=== PATIENT | female | born 1970 | race Caucasian/White ===

== ENCOUNTER → 2023-04-10 | Outpatient (CLI) | payer BC, SELFPAY ==
--- NOTE | 2023-04-10 11:23 | NM_ITS ---
CLINICAL: 52-year-old female with history of right kidney hydronephrosis. 99m Tc MAG3 DIURETIC RENAL SCINTIGRAPHY COMPARISON: None available FINDINGS: Following the intravenous administration of 10.0 mCi of 99m Tc MAG3, renal images reveal: 1. The flow study demonstrates relatively normal arterial phase distribution of the radiopharmaceutical to the bilateral kidneys. 2. Immediate static delayed nephrogram images depict relatively prompt and homogeneous tracer concentration by the renal parenchyma of both kidneys. Collecting structure visualization is defined by 4 minutes post radiopharmaceutical administration bilaterally. Washout of the radiopharmaceutical by the left kidney appears qualitatively normal. Delayed radiotracer washout is defined in the right renal unit. There is spontaneous drainage of the left kidney collecting system prior to furosemide administration. Persistent collecting system activity is defined in the right renal unit during 20 minutes of pre-Lasix sequential image acquisition. 3. The [id number] ratio of total renal parenchymal function was calculated to be 46/54. Furosemide 10 mg was administered intravenously. The post Lasix T ? washout of the residual left and visualized right kidney collecting system was calculated to be minutes, (normal < 10 minutes). NM/Renal Scan w/ Pharm Intervent IMPRESSION: 1. There is preserved left kidney renal parenchymal-cortical function. Cortical dysfunction is defined in the right renal unit as described above. 2. The right and left kidney collecting systems demonstrate a normal physiologic response to diuretic administration negating the presence of significant mechanical and/or functional obstruction. Electronically Signed: Shahzad Mackenzie DO at 22:16 EST ,
--- OUTSIDE RECORDS SUMMARY | 2023-04-10 12:07 | XMS RPT_ITS | CCD ---
Author Name Unknown Address [address] [facility] [address] [place] [address] Organization [facility] Care Team Providers Care Motel Operator Name Role Phone NO FAMILY DOCTOR, NO FAMILY DOCTOR Unavailable Unavailable OVIDIO CHAPA Unavailable Unavailable Khris SHOP AND ALTERATION TAILOR - Cortez LARSON Primary Care Provid er CORTEZ PINEDO Primary Care Unavailable BENJAMIN COMER Attending Unavailable Cortez Pinedo Unavailable Shahzad Ayala Unavailable Unavailable Khris SHOP AND ALTERATION TAILOR.Cortez LARSON Primary Care Provider Cortez Pinedo Unavailable Unavailable Unavailable Khris SHOP AND ALTERATION TAILOR.Cortez LARSON Primary Care Provider Khris SHOP AND ALTERATION TAILOR.Cortez LARSON Primary Care Provider CORTEZ PINEDO Referring Unavailable CORTEZ PINEDO Primary Care Unavailable Khris SHOP AND ALTERATION TAILOR - Cortez LARSON Primary Care Provid er CORTEZ PINEDO Primary Care Unavailable MARICEL PORETR Referring Unavailable CORTEZ PINEDO Primary Care Unavailable MARICEL PORTER Referring Unavailable MARICEL PORTER Referring Unavailable CORTEZ PINEDO Primary Care Unavailable MARICEL PORTER Referring Unavailable JULIETTE PINEDOE M Primary Care Unavailable MARICEL PORTER Referring Unavailable JULIETTE PINEDOE M Primary Care Unavailable MARICEL PORTER Referring Unavailable KHRIS, CORTEZ M Primary Care Unavailable NED BORREGO Referring Unavailable KHRIS, CORTEZ M Primary Care Unavailable JULIETTE PINEDOE M Primary Care Unavailable MARICEL PORTER Referring Unavailable JULIETTE PINEDOE M Primary Care Unavailable NED BORREGO Referring Unavailable GENO ARCHER Referring Unavailable JULIETTE PINEDOE M Primary Care Unavailable KHRIS, CORTEZ M Primary Care Unavailable JULIETTE PINEDOE M Attending Unavailable JULIETTE PINEDOE M Referring Unavailable KHRIS, CORTEZ M Primary Care Unavailable KHRIS, CORTEZ M Referring Unavailable KHRIS, CORTEZ M Primary Care Unavailable GENO ARCHER Attending Unavailable SELF Referring Unavailable KHRIS, CORTEZ M Primary Care Unavailable KHRIS, CORTEZ M Primary Care Unavailable TORSTEN VASQUEZ Attending Unavailable MICHELE CELIS Attending Unavaila ble JULIETTE PINEDOE M Primary Care Unavailable VÍCTOR, JOHN Admitting Unavailable EDMOND RENEEITA Attending Unavailable JULIETTE PINEDOE M Primary Care Unavailable TORSTEN VASQUEZ Referring Unavailable NIYAH GARCIA Consulting Unavail able KHRIS, CORTEZ M Primary Care Unavailable KHRIS, CORTEZ M Primary Care Unavailable JULIETTE PINEDOE M Attending Unavailable JULIETTE PINEDOE M Referring Unavailable KHRIS, CORTEZ M Primary Care Unavailable KHRIS, CORTEZ M Primary Care Unavailable Allergies Allergy Classification Reported Allergen(s) Allergy Type Date of Onset Reaction(s) Facility Quinolones (antibiotic) (1 source) Ciprofloxacin Drug Allergy 1 Anaphylaxis [facility] (20 sources) Ciprofloxacin; Translations: [Cipro] Drug Allergy 3 Anaphylaxis, Itching, Other (See Comments), Nausea And Vomiting [facility] (1 source) Ciprofloxacin Drug Allergy Unknown [facility] (20 sources) Ciprofloxacin; Translations: [CIPROFLOXACIN IN 5 % DEXTROSE] Drug Allergy 3 Itching, Other: See Comments [facility] (20 sources) Sulfamethoxazole / Trimethoprim; Translations: [SULFAMETHOXAZOLE-TR IMETHOPRIM] Drug Allergy 8 Diarrhea, Vomiting, Nausea And Vomiting [facility] Medications Current Medications Medication Drug Class(es) Dates Sig (Normalized) Sig (Original) cyclobenzaprine hydrochloride 10 mg oral tablet (3 sources) Muscle Relaxant Start: 08-19-2022 End: 08-24-2022 take 1 tablet by mouth every eight hours as needed cyclobenzaprine (FLEXERIL) 10 mg tablet Take 1 tablet by mouth every 8 hours as needed for up to 5 days. 10 tablet 0 08/19/2022 08/24/2022 Active Completed/Discontinued Medications Medication Drug Class(es) Dates Sig (Normalized) Sig (Original) acetaminophen 325 mg / HYDROcodone bitartrate 7.5 mg oral tablet (2 sources) Opioid Agonist Start: 05-15-2021 take 1 tablet by mouth every four to six hours as needed for pain HYDROcodone-Aceta minophen 7.5-325 MG Oral Tablet TAKE 1 TABLET EVERY 4-6 HOURS NEEDED FOR PAIN Quantity: 8 Refills: 0 Ordered: 15-May-2021 DO Start : 15-May-2021 Active acetaminophen 325 mg / oxyCODONE hydrochloride 5 mg oral tablet (3 sources) Opioid Agonist Start: 08-12-2020 End: 08-15-2020 take 1 tablet by mouth every six hours as needed for pain oxyCODONE-Acetami nophen 5-325 MG Oral Tablet TAKE 1 TABLET BY MOUTH EVERY 6 HOURS NEEDED for pain for up to 3 (THREE) days Quantity: 12 Refills: 0 Ordered: 12-Aug-2020 DO Start : 12-Aug-2020 Active 24 hr buPROPion hydrochloride 150 mg extended release oral tablet (20 sources) Aminoketone Start: 01-28-2023 take 1 tablet by mouth once daily buPROPion XL (WELLBUTRIN XL) 150 mg 24 hr tablet Take 1 tablet by mouth once daily. 90 tablet 1 01/28/2023 Active Problems Active Problems Problem Classification Problem Date Documented Da te Episodic/Chronic Anxiety disorders (6 sources) Anxiety; Translations: [Anxiety disorder, unspecified] Onset: 08-27-2022 Chronic Immunizations and screening for infectious disease (16 sources) Patient encounter status; Translations: [Encounter for screening for COVID-19] Episodic Menopausal disorders (1 source) Menopausal and female climacteric states; Translations: [Menopausal symptom] Onset: 03-13-2023 Chronic Mood disorders (20 sources) Depressive disorder; Translations: [Depressive disorder] Onset: 07-02-2016 07-02-2016 Chronic Nonspecific chest pain (4 sources) Chest pain; Translations: [Chest pain, unspecified] 02-26-2021 Episodic Past or Other Problems Problem Classification Problem Date Documented Date Episodic/Chronic Calculus of urinary tract (20 sources) Kidney stone; Translations: [Calculus of kidney] Onset: 08-27-2016 Episodic Other diseases of kidney and ureters (20 sources) Obstruction of pelviureteric junction; Translations: [Crossing vessel and stricture of ureter without hydronephrosis] Onset: 11-26-2012 04-03-2023 Episodic Other diseases of kidney and ureters (1 source) Crossing vessel and stricture of ureter without hydronephrosis; Translations: [UPJ (ureteropelvic junction) obstruction] Onset: 02-20-2021 Episodic Other fractures (2 sources) Other specified fracture of right pubis, subsequent encounter for fracture with routine healing; Translations: [Other specified fracture of right pubis, subsequent encounter for fracture with routine healing] Onset: 05-09-2021 Episodic Other lower respiratory disease (20 sources) Multiple nodules of lung; Translations: [Other nonspecific abnormal finding of lung field] Onset: 04-01-2018 04-01-2018 Episodic Other lower respiratory disease (1 source) Chest pain on breathing; Translations: [Chest pain on breathing] Onset: 08-18-2022 Episodic Spondylosis; intervertebral disc disorders; other back problems (5 sources) Backache; Translations: [Dorsalgia, unspecified] Onset: 04-17-2022 Episodic Unclassified (1 source) Pain in left wrist; Translations: [Pain in left wrist] Onset: 02-06-2017 Results Test Name Value Interpretation Reference Range Facil it Vital Signs Date Time Vital Sign Value Performing Clinician Facility 12-21-2022 13:54-0400 Body temperature 97.9 [degF] Nurse Franklin Work Phone: [facility] 12-21-2022 13:54-0400 Diastolic blood pressure 68 mm[Hg] Nurse Franklin Work Phone: [facility] 12-21-2022 13:54-0400 Systolic blood pressure 118 mm[Hg] Nurse Franklin Work Phone: [facility] 08-27-2022 11:14-0400 Body height 162.6 cm Geno Sheets DO Work Phone: [facility] 08-27-2022 11:14-0400 Body temperature 98.2 [degF] Geno Sheets DO Work Phone: [facility] 08-27-2022 11:14-0400 Body weight 78.93 kg Geno Sheets DO Work Phone: [facility] 08-27-2022 11:14-0400 Diastolic blood pressure 60 mm[Hg] Geno Sheets DO Work Phone: [facility] 08-27-2022 11:14-0400 Heart rate 68 /min Geno Sheets DO Work Phone: [facility] 08-27-2022 11:14-0400 SaO2% (BldA) [Mass fraction] 97 % Geno Sheets DO Work Phone: [facility] 08-27-2022 11:14-0400 Systolic blood pressure 110 mm[Hg] Geno Sheets DO Work Phone: [facility] 10-11-2021 13:43-0400 Body height 162.6 cm Cortez Khris SHOP AND ALTERATION TAILOR.MARINE SERVICE STATION ATTENDANT Work Phone: [facility] 10-11-2021 13:43-0400 Body temperature 98.2 [degF] Cortez Khris SHOP AND ALTERATION TAILOR.MARINE SERVICE STATION ATTENDANT Work Phone: [facility] 10-11-2021 13:43-0400 Body weight 73.12 kg Cortez Khris SHOP AND ALTERATION TAILOR.MARINE SERVICE STATION ATTENDANT Work Phone: [facility] 10-11-2021 13:43-0400 Diastolic blood pressure 60 mm[Hg] Cortez Khris SHOP AND ALTERATION TAILOR.MARINE SERVICE STATION ATTENDANT Work Phone: [facility] 10-11-2021 13:43-0400 Heart rate 70 /min Cortez Khris SHOP AND ALTERATION TAILOR.MARINE SERVICE STATION ATTENDANT Work Phone: [facility] 10-11-2021 13:43-0400 Respiratory rate 18 /min Cortez Khris SHOP AND ALTERATION TAILOR.MARINE SERVICE STATION ATTENDANT Work Phone: [facility] 10-11-2021 13:43-0400 SaO2% (BldA) [Mass fraction] 100 % Cortez Khris SHOP AND ALTERATION TAILOR.MARINE SERVICE STATION ATTENDANT Work Phone: [facility] 10-11-2021 13:43-0400 Systolic blood pressure 92 mm[Hg] Cortez Khris SAUCEDOMARINE SERVICE STATION ATTENDANT Work Phone: [facility] 08-02-2021 15:43-0400 Body height 162.56 cm Cortez Pinedo Work Phone: [facility] Work Phone: 08-02-2021 15:43-0400 Body mass index (BMI) [Ratio] 29.18 kg/m2 Cortez Pinedo Work Phone: [facility] Work Phone: 08-02-2021 15:43-0400 Body surface area Derived from formula 1.83 m2 Cortez Rick Khris Work Phone: [facility] Work Phone: 08-02-2021 15:43-0400 Body weight 77.11 kg Cortez Pinedo Work Phone: [facility] Work Phone: 05-24-2021 14:26-0400 Body height 162.6 cm Katerin Simmons MD Work Phone: [facility] 05-24-2021 14:26-0400 Body temperature 98.29 [degF] Katerin Simmons MD Work Phone: [facility] 05-24-2021 14:26-0400 Body weight 77.11 kg Katerin Simmons MD Work Phone: [facility] 05-24-2021 14:26-0400 Diastolic blood pressure 70 mm[Hg] Katerin Simmons MD Work Phone: [facility] 05-24-2021 14:26-0400 Heart rate 75 /min Katerin Simmons MD Work Phone: [facility] 05-24-2021 14:26-0400 Respiratory rate 18 /min Katerin Simmons MD Work Phone: [facility] 05-24-2021 14:26-0400 SaO2% (BldA) [Mass fraction] 99 % Katerin Simmons MD Work Phone: [facility] 05-24-2021 14:26-0400 Systolic blood pressure 110 mm[Hg] Katerin Simmons MD Work Phone: [facility] 02-26-2021 06:34-0500 Diastolic blood pressure 76 mm[Hg] Cortez Khris Other Phone: [facility] 02-26-2021 06:34-0500 Heart rate 76 /min Cortez Khris Other Phone: [facility] 02-26-2021 06:34-0500 Respiratory rate 20 /min Cortez Khris Other Phone: [facility] 02-26-2021 06:34-0500 SaO2% (BldA) [Mass fraction] 100 % Cortez Khris Other Phone: [facility] 02-26-2021 06:34-0500 Systolic blood pressure 130 mm[Hg] Cortez Khris Other Phone: [facility] 08-12-2020 17:01-0400 Body height 162.6 cm Benjamin Comer MD Work Phone: [employer] Work Phone: 08-12-2020 17:01-0400 Body mass index (BMI) [Ratio] 27.46 kg/m2 Benjamin Comer MD Work Phone: [employer] Work Phone: 08-12-2020 17:01-0400 Body temperature 98.49 [degF] Benjamin Comer MD Work Phone: [employer] Work Phone: 08-12-2020 17:01-0400 Body weight 72.58 kg Benjamin Comer MD Work Phone: [employer] Work Phone: 08-12-2020 17:01-0400 Diastolic blood pressure 60 mm[Hg] Benjamin Comer MD Work Phone: [employer] Work Phone: 08-12-2020 17:01-0400 Heart rate 91 /min Benjamin Comer MD Work Phone: [employer] Work Phone: 08-12-2020 17:01-0400 Respiratory rate 14 /min Benjamin Comer MD Work Phone: [employer] Work Phone: 08-12-2020 17:01-0400 SaO2% (BldA) [Mass fraction] 97 % Benjamin Comer MD Work Phone: [employer] Work Phone: 08-12-2020 17:01-0400 Systolic blood pressure 128 mm[Hg] Benjamin Comer MD Work Phone: [employer] Work Phone: Encounters Encounter Date Encounter Type Care Provider Facility Start: 04-08-2023 Telephone encounter Cortez Pinedo APRN.MARINE SERVICE STATION ATTENDANT Work Phone: [facility] Procedures Date Procedure Procedure Detail Performing Clinician Start: 01-30-2023 Lipid 1996 panel - S dorcas or Plasma Cortez Pinedo APRN.MARINE SERVICE STATION ATTENDANT Work Phone: Start: 12-21-2022 INFLUENZA VACCINE, A GE 6 MO - 64 YR, QUADRIVALENT (AFLURIA, FLULAVAL, FLUZONE) Geno C Sheets DO Work Phone: Start: 04-27-2022 Mri spinal canal lum bar w/o contrast material Danielle Valadez SHOP AND ALTERATION TAILOR - MESMERIST Work Phone: Start: 04-27-2022 Ct pelvis w/o contra st material Danielle Valadez SHOP AND ALTERATION TAILOR - MESMERIST Work Phone: Start: 04-17-2022 End: 04-17-2022 Radex hip unilateral with pelvis 2-3 views Ned Borrego DO Work Phone: Start: 03-06-2022 Mammography Cortez chang SHOP AND ALTERATION TAILOR.MARINE SERVICE STATION ATTENDANT Work Phone: Start: 02-27-2022 INFLUENZA VACCINE QUADRIVALENT 6 MO - 64 YRS IM Geno C Sheets DO Work Phone: Start: 02-27-2022 PFIZER-BIONTECH COVI D-19 BIVALENT BOOSTER VACCINE, AGE 12+ YR Geno C Sheets DO Work Phone: Start: 12-27-2021 Lipid 1996 panel - S dorcas or Plasma Cortez Pinedo SHOP AND ALTERATION TAILOR.MARINE SERVICE STATION ATTENDANT Work Phone: Start: 02-26-2021 End: 02-26-2021 EKG impression Shahzad Ayala Start: 02-23-2021 Mri any jt lower ext rem w/o contrast matrl Danielle Valadez APRN - MESMERIST Work Phone: Start: 08-12-2020 Ct abdomen & pelvis w/o contrast material Benjamin Comer MD Work Phone: Start: 03-04-2020 Colonoscopy Katerin reis MD Work Phone: Start: 02-04-2020 Mammography Katerin resi MD Work Phone: Plan of Treatment Date Care Activity Detail Author Start: 04-01-2028 Urine microalbumin profile [facility] Start: 01-31-2028 Lipid 1996 panel - S dorcas or Plasma Lipid Screening [facility] Start: 01-31-2028 Lipid panel Lipid Screening [facility] Start: 12-27-2026 Lipid 1996 panel - S dorcas or Plasma Lipid Screening [facility] Start: 12-27-2026 LIPID SCREEN LIPID SCREEN [facility] Start: 03-03-2026 Diabetes Screening Diabetes Screenin g [facility] Start: 01-30-2026 Diabetes Screening Diabetes Screenin g [facility] Start: 08-19-2025 DIABETES SCREEN DIABETES SCREEN [facility] Start: 08-19-2025 Diabetes Screening Diabetes Screenin g [facility] Start: 03-04-2025 Colonoscopy Colonoscopy [facility] Start: 03-04-2025 Colorectal Cancer Screening Colorectal Cancer Screening [facility] Start: 03-04-2025 Screening for malign ant neoplasm of colon [facility] Start: 01-06-2025 LIPID SCREEN LIPID SCREEN [facility] Start: 12-27-2024 DIABETES SCREEN DIABETES SCREEN [facility] Start: 03-12-2024 Screening for malign ant neoplasm of breast Mammogram Screening [facility] Start: 03-06-2024 Screening for malign ant neoplasm of breast Breast cancer screen [facility] Start: 09-04-2023 Hepatitis B Vaccine (3 of 3 - 19+ 3-dose series) Hepatitis B Vaccine (3 of 3 - 19+ 3-dose series) [facility] Start: 03-06-2023 Mammography [facility] Start: 12-14-2022 DIABETES SCREEN DIABETES SCREEN [facility] Start: 10-26-2022 Covid-19 Vaccine ( season) Covid-19 Vaccine ( season) [facility] Start: 10-26-2022 Influenza vaccination [facility] Start: 10-11-2022 COVID-19 VACCINE (4 - Booster for Pfizer series) COVID-19 VACCINE (4 - Booster for Pfizer series) [facility] Immunizations Immunization Date Immunization Notes Care Provider Pilar young 04-03-2023 hepatitis B vaccine, adult dosage [facility] Work Phone: [facility] 03-06-2023 hepatitis B vaccine, adult dosage [facility] Work Phone: [facility] 12-21-2022 influenza, injectabl e, quadrivalent, contains preservative Nurse Mary Work Phone: [facility] 02-27-2022 COVID-19 booster vaccine, age 12+ yr, bivalent (PFIZER-BIONTECH) Nurse Mary Work Phone: [facility] 02-27-2022 influenza, injectabl e, quadrivalent, contains preservative Nurse Hernandez Work Phone: [facility] 02-27-2022 influenza virus vacc ine, unspecified formulation Cortez Pinedo APRN.MARINE SERVICE STATION ATTENDANT Work Phone: [facility] 04-04-2021 COVID-19 vaccine, ag e 12+ yr (PFIZER-BIONTECH - [facility]) Katerin Simmons MD Work Phone: [facility] 12-03-2020 influenza, injectabl e, quadrivalent, preservative free Cortez Pinedo [facility] Work Phone: 07-02-2020 Pfizer-BioNTech COVI D-19 Vacc 30 MCG/0.3ML Intramuscular Suspension Cortez Pinedo Work Phone: [facility] DO Work Phone: 06-11-2020 Pfizer-BioNTech COVI D-19 Vacc 30 MCG/0.3ML Intramuscular Suspension Cortez Pinedo Work Phone: [facility] DO Work Phone: 12-15-2019 influenza, injectabl e, quadrivalent, contains preservative Katerin Simmons MD Work Phone: [facility] 12-15-2019 zoster vaccine recombinant Cortez Pinedo APRN.MARINE SERVICE STATION ATTENDANT Work Phone: [facility] 01-03-2016 influenza, injectabl e, quadrivalent, contains preservative Katerin Simmons MD Work Phone: [facility] 01-03-2016 influenza, seasonal, injectable, preservative free Katerin Simmons MD Work Phone: [facility] 12-13-2014 influenza, seasonal, injectable Katerin Simmons MD Work Phone: [facility] 12-15-2013 influenza, seasonal, injectable Katerin Simmons MD Work Phone: [facility] 02-11-2009 novel influenza-H1N1 -09, preservative-free, injectable Cortez Pinedo Work Phone: [facility] Payers Date Payer Category Payer Unknown [id number] 2020 Unknown LACI O SED KACY O [id number] 2020-Present [phone] [address] [place] [address] [id number] 2020 Unknown LACI O SED KACY MCO 1970 2020-Present [phone] [address] [place] [address] 1971 [id number] 2020 Unknown GENERIC MCO GENE ASTRID MCO WC [id number] 2020-Present [phone] [address] [place] [address] [id number] 2020 Unknown [id number] 2020 Unknown 2020 [id number] 2020 Unknown [id number] 2016 Unknown [id number] 2016 Unknown 2016 Unknown DANNIE DOYLE PPO [id number] 2016-Present [phone] [address] [place] [address] PPO [id number] 1969 Unknown [id number] 1969 Unknown [id number] 1969 Unknown [id number] 1969 Unknown [id number] 1969 Unknown [id number] 1969 Unknown [id number] 1969 Unknown [id number] 1969 Unknown [id number] 1969 Unknown [id number] 1969 Unknown [id number] Social History Date Type Detail Facility Start: 09-25-2017 End: 08-12-2020 Tobacco smoking status [facility] Former smoker [employer] Phone: End: 01-23-2015 History of tobacco use Current smoker [employer] End: 01-23-2015 History of tobacco use Cigarette Smoker [employer] Start: 09-25-2017 End: 08-12-2020 Tobacco use and exposure Never used [employer] Start: 08-12-2020 End: 03-13-2023 Alcohol intake Ex-drinker (finding) [employer] Phone: Start: 08-12-2020 Alcohol Comment none since 2019 [employer] Phone: Start: 1970 Sex Assigned At Not on file M [employer] Work Phone: Start: 05-14-2021 End: 12-27-2021 Exposure to SARS-CoV-2 (event) Not sure [employer] Tobacco smoking consumption unknown [facility] Start: 07-16-2013 End: 08-19-2022 Cigarettes smoked current (pack per day) - Reported 0.5 [facility] Start: 05-01-2019 History SDOH Alcohol Comment occ [facility] Start: 07-02-2016 Tobacco Comment Vapor Cigarett e, quit cigarettes 12/2015. [facility] Start: 1970 Sex Assigned At Female [facility] Start: 08-19-2022 End: 08-27-2022 Tobacco use panel [facility] National Score (1-10 0), lower number is lower risk 63 [facility] Start: 11-18-2020 Gender identity Identifies as female gender (finding) [facility] Start: 11-18-2020 Sexual orientation Heterosexual (jones gagnon) [facility] Medical Equipment Procedure Code Equipment Code Equipment Origin al Text Equipment Identifier Dates [id number] [place] [id number] Start: 11-26-2012 Clinical Notes 08-12-2020 to 04-08-2023 Telephone Encounter - Ilya Borrero MA - 04/08/2023 4:17 PM ESTTelephone Encounter - Ilya Borrero MA - 04/08/2023 4:14 PM Kinjal Buitrago RT(Beltran) - 04/03/2023 10:00 AM ESTPatient Instructions Note Date & Type Note Facility 04-08-2023 Miscellaneous Notes Called pt let her know the results and faxed results to Dr. Glover she has apt on 04/16/23 Ilya Borrero MA ----- Message from Cortez Pinedo APRN.MARINE SERVICE STATION ATTENDANT sent at 04/08/2023 12:37 PM EST ----- CT urogram continues to show mild right sided hydronephrosis which is unchanged. There is resolution of previously seen thickening. Recommend she follow up with her urologist dr glover. Please fax results to her. IMPRESSION: 1. Unchanged mild right-sided hydronephrosis, without hydroureter. Resolution of the previously seen urothelial thickening. 2. Unchanged mild irregularity of the right-sided calyces, most pronounced in the upper pole. Symmetric renal enhancement and excretion without filling defects. 3. Few punctate right-sided nonobstructing renal stones. documented in this encounter [facility] 04-03-2023 Note HNO ID: [id number] Author: KINJAL FINCH RT(R) Service: Radiology Author Type: Retail Coordinator Type: Progress Notes Filed: 04/03/2023 11:21 Note Text: Radiology Service Progress Note DATE OF SERVICE: April 03, 2023 TIME: 11:20 AM PATIENT IDENTITY VERIFICATION COMPLETED USING TWO (2) STANDARD IDENTIFIERS: Name and Date of confirmed by patient verbally. FALL SCREENING: Has the patient had 2 falls in the last year or 1 fall with injury or currently using an Ambulatory Assistive Device (Walker, Cane, Wheelchair, Crutches, etc.)? No PATIENT GENDER DATA: Female. status: : No status: NO. PATIENT RELEVANT IMPLANT DATA REVIEWED: Not Applicable PATIENT PRESENTS WITH AN IMPLANTABLE OR ATTACHED SUPERVISOR NET MAKING: No ALLERGIES: Reviewed and unchanged CONTRAST ALLERGY: NO. EXAM: CT -CONTRAST INDUCED NEPHROPATHY RISK FACTORS: Patient age > 60 years and Not applicable CREATININE: Creatinine Date Value Ref Range Status 03/03/2023 0.81 0.58 - 0.96 mg/dL Final 03/02/2023 0.84 0.58 - 0.96 mg/dL Final 01/30/2023 0.81 0.58 - 0.96 mg/dL Final Estimated Glomerular Filtration Rate Date Value Ref Range Status 03/03/2023 87 >=60 mL/min/1.73m? Final Comment: Estimated Glomerular Filtration Rate (eGFR) is calculated using the 2020 CKD-EPI creatinine equation. This equation utilizes serum creatinine, sex, and age as parameters. The creatinine assay has traceable calibration to isotope dilution-mass spectrometry. Refer to KDIGO guidelines for clinical interpretation. In patients with unstable renal function, e.g. those with acute kidney injury, the eGFR may not accurately reflect actual GFR. eGFR- Date Value Ref Range Status 12/15/2019 >60 Final P.O.C.T. RESULTS: POC done: Yes, See Lab Tab April 03, 2023 TREATMENT: N/A PERIPHERAL IV DATA: Ambulatory: A peripheral IV was started in the Right upper extremity with a Angio cath: 20 gauge. RADIOLOGY DEPARTMENT: CT; Exam(s) Completed: Abdomen/Pelvis SIGNATURE: RT Nidia(R) PATIENT NAME: Tresa Garay DATE: April 03, 2023 TIME: 11:20 AM [facility] 04-03-2023 History of Presen t illness Narrative Radiology Service Progress Note DATE OF SERVICE: April 03, 2023 TIME: 11:20 AM PATIENT IDENTITY VERIFICATION COMPLETED USING TWO (2) STANDARD IDENTIFIERS: Name and Date of confirmed by patient verbally. FALL SCREENING: Has the patient had 2 falls in the last year or 1 fall with injury or currently using an Ambulatory Assistive Device (Walker, Cane, Wheelchair, Crutches, etc.)? No PATIENT GENDER DATA: Female. status: : No status: NO. PATIENT RELEVANT IMPLANT DATA REVIEWED: Not Applicable PATIENT PRESENTS WITH AN IMPLANTABLE OR ATTACHED SUPERVISOR NET MAKING: No ALLERGIES: Reviewed and unchanged CONTRAST ALLERGY: NO. EXAM: CT -CONTRAST INDUCED NEPHROPATHY RISK FACTORS: Patient age > 60 years and Not applicable CREATININE: Creatinine Date Value Ref Range Status 03/03/2023 0.81 0.58 - 0.96 mg/dL Final 03/02/2023 0.84 0.58 - 0.96 mg/dL Final 01/30/2023 0.81 0.58 - 0.96 mg/dL Final Estimated Glomerular Filtration Rate Date Value Ref Range Status 03/03/2023 87 >=60 mL/min/1.73m Final Comment: Estimated Glomerular Filtration Rate (eGFR) is calculated using the 2020 CKD-EPI creatinine equation. This equation utilizes serum creatinine, sex, and age as parameters. The creatinine assay has traceable calibration to isotope dilution-mass spectrometry. Refer to KDIGO guidelines for clinical interpretation. In patients with unstable renal function, e.g. those with acute kidney injury, the eGFR may not accurately reflect actual GFR. eGFR- Date Value Ref Range Status 12/15/2019 >60 Final P.O.C.T. RESULTS: POC done: Yes, See Lab Tab April 03, 2023 TREATMENT: N/A PERIPHERAL IV DATA: Ambulatory: A peripheral IV was started in the Right upper extremity with a Angio cath: 20 gauge. RADIOLOGY DEPARTMENT: CT; Exam(s) Completed: Abdomen/Pelvis SIGNATURE: RT Nidia(R) PATIENT NAME: Tresa Garay DATE: April 03, 2023 TIME: 11:20 AM documented in this encounter [facility] 03-13-2023 Note HNO ID: [id number] Author: CORTEZ PINEDO APRN.MARINE SERVICE STATION ATTENDANT Service: ? Author Type: Nurse Practitioner Type: Progress Notes Filed: 03/13/2023 12:17 Note Text: This note was created using [employer]. Subjective Tresa Garay is a 52 year old female here today for concerns for menopausal symptoms. She reports symptoms of hot flashes. States she will get so hot when she gets out of the shower. States increase stress seems to make this worse. States she is sweating all the time. She also reports weight gain. She reports this has been ongoing but worse over the past year. She reports walking and occasional running on treadmill 10 min daily. She is also doing body weight exercises daily. She is frustrated with not being able to lose weight. She had complete hysterectomy including ovaries were removed at age 42. She is taking celexa 40 mg and wellbutrin She completed anitbiotic for her pyelitis. States symptoms improved. She has follow up appt with urology on 03/19/23, Dr Glover ALLERGIES Allergen Reactions Bactrim [Sulfametho* Diarrhea, Vomiting Ciprofloxacin In 5 * Itching, Other: See Comments Redness as well Itching and redness noted on arm and IV site after a small dose given for per-op antibiotic. Pt states, I did not know I was allergic to that. Current Outpatient Medications Medication Sig Dispense Refill cephALEXin (KEFLEX) 500 mg capsule Take 1 capsule by mouth three times a day. 21 capsule 0 cholecalciferol (VITAMIN D) 1,000 unit tab tablet Take 1,000 Units by mouth once daily. fluticasone (FLONASE ALLERGY RELIEF) 50 mcg/actuation nasal spray Use 1 Currie in each nostril once daily. 15 mL 3 buPROPion XL (WELLBUTRIN XL) 150 mg 24 hr tablet Take 1 tablet by mouth once daily. 90 tablet 1 hydrOXYzine HCl (ATARAX) 25 mg tablet Take 1 tablet by mouth every 6 hours as needed (for itching and anxiety). 90 tablet 1 citalopram (CELEXA) 40 mg tablet Take 1 tablet by mouth once daily. 90 tablet 1 lansoprazole (PREVACID) 30 mg capsule TAKE 1 CAPSULE DAILY 90 capsule 3 Melatonin 5 mg tab Take 5 mg by mouth daily at bedtime. No current facility-administered medications for this visit. ACTIVE PROBLEM LIST Upj (Ureteropelvic Junction) Obstruction Depressive Disorder History of Kidney Stones Pulmonary Nodules Obesity, Class I, Bmi 30-34.9 Acute Pyelitis PAST MEDICAL HISTORY Diagnosis Date Chest pain Patient denied any cardiac problems Depressive disorder Dysmenorrhea Heart murmur Patient denied Hydronephrosis Pelvic pain in female Female genital organ symptoms Renal colic Unspecified renal colic Smoker TIA (transient ischemic attack) at 26; seen in ER and told it was a mini stroke. Had subsequent carotid US for a few years, and found to have no issues Urinary tract infection 10/2012 Uterine leiomyoma PAST SURGICAL HISTORY Procedure Laterality Date APPENDECTOMY HX 2005 Laparoscopic CYSTOSCOPY 11/26/12 right retrograde pyelogram CYSTOURETHROSCOPY 12/26/2012 Cystoscopy/Stent Extraction Dr. Baron OVARIAN CYSTECTOMY UNI/BI 1987 Laparoscopy PAST SURGICAL HISTORY OF 01/07/2013 cystoscopy, ureteral JJ stent right PLASTIC SURGERY NECK OR UTERUS, CERVICOPL 1987 Lx; DANDC, cysts on fallopian tube TONSILLECTOMY HX 1974 TOTAL ABDOM HYSTERECTOMY 03/2014 Social History Tobacco Use Smoking status: Former Packs/day: 0.50 Years: 25.00 Additional pack years: 0.00 Total pack years: 12.50 Types: Cigarettes Quit date: 01/23/2015 Years since quittin.1 Smokeless tobacco: Never Tobacco comments: Vapor Cigarette, quit cigarettes 12/2015. Vaping Use Vaping Use: Some days Substance Use Topics Alcohol use: Not Currently Comment: occ Drug use: No Family History Problem Relation Age of Onset Hypertension Mother Asthma Mother other (unknown) Father Feeling nervous, anxious, or on edge 2 Over half the days Not being able to stop or control worrying 3 Nearly every day Worrying too much about different things 3 Nearly every day Trouble relaxing 2 Over half the days Being so restless that it's hard to sit still 1 Several days Being easily annoyed or irritable 2 Over half the days Feeling afraid as if something awful might happen 2 Over half the days MERY-7 Anxiety Score 15 If you checked off any problems, how difficult have these problems made it for you to do your work, take care of things at home, or get along with other people? Very difficult THE LAST 2 WEEKS, HAVE YOU BEEN BOTHERED BY ANY OF THE FOLLOWING? - Little interest or pleasure in doing things 2 MORE THAN HALF THE DAYS Feeling down, depressed, or hopeless 3 Trouble falling or staying asleep, or sleeping too much 2 Feeling tired or having little energy 2 Poor appetite or overeating 3 Feeling bad yourself-you are a failure or have let yourself or others 2 Trouble concentrating, like reading the paper or watching TV 2 Moving/speaking slowly (other (more content not included)... [facility] 03-12-2023 Note HNO ID: [id number] Author: RENATO LOVELL RT(Beltran) Service: ? Author Type: Technologist Type: Progress Notes Filed: 03/12/2023 15:10 Note Text: Radiology Service Progress Note PATIENT NAME: Tresa Garay DATE OF SERVICE: March 12, 2023 TIME: 3:10 PM PATIENT IDENTITY VERIFICATION COMPLETED USING TWO (2) IDENTIFIERS: Name and Date of confirmed by patient verbally. FALL SCREENING: Has the patient had 2 falls in the last year or 1 fall with injury or currently using an Ambulatory Assistive Device (Walker, Cane, Wheelchair, Crutches, etc.)? No PATIENT GENDER DATA: Female. status: : No status: NO. PATIENT RELEVANT IMPLANT DATA REVIEWED: Not Applicable RADIOLOGY DEPARTMENT: Mammography PERIPHERAL IV DATA: Not applicable SIGNED BY: RT Kim(Beltran) March 12, 2023 3:10 PM [facility] 03-06-2023 Note HNO ID: [id number] Author: ILYA BORRERO MA Service: ? Author Type: Forging Die Sinker Type: Progress Notes Filed: 03/06/2023 14:13 Note Text: Patient has been identified by name and date of : Yes Tresa is here for an injection of hepatitis B Dose: 1 ml Route: Intramuscular Given without incident. Site: right deltoid Fisher Diver Net: [employer]gerix Lot #: [id number] [facility] #: [id number] Expiration Date: 05/11/24 Cortez Pinedo present in clinic at time of injection. The date due for the next injection is 1 month. Ilya Borrero MA [facility] 03-04-2023 Note HNO ID: [id number] Author: KHADRA RICHEY LPN Service: ? Author Type: LICENSED NURSE Type: Progress Notes Filed: 03/04/2023 12:16 Note Text: TRANSITIONAL CARE MANAGEMENT (TCM) COMMUNITY MONITORING PROGRAM - [facility] Provider Action/FYI: Pt states she is doing well, denies worsening pain. Discomfort still remains. She did reach out to the urologist office this morning and left a voicemail requesting an appointment. Denies the need for PCP appt at this time. Taking antibiotic without difficulty. Instructed to call the office with any further questions or concerns. SUMMARY: Pt discharged from [facility] on 03/03/2023. Admitted for: Acute pyelitis Risk score: 13 Patient seen Inpatient RYANNE Visit? N/A. Patient seen ICARE Program? N/A. Contact made with patient: Yes Hi my name is Khadra Richey LPN and I am calling from the [facility] on behalf of your PCP, Cortez Pinedo APRN.MARINE SERVICE STATION ATTENDANT I understand you were recently in the hospital so I am calling to check in with you to ensure you are feeling well now that you?re home. Do you mind if I ask you a few questions related to your hospital stay and well-being Yes Contact with patient post discharge, spoke to patient. Patient identified by name and . Do you feel your health is BETTER, WORSE, or the SAME since leaving the hospital? Better ACTION TAKEN: Patient indicated symptoms are better or same, no action required. Continue outreach. N/A MEDICATIONS: Many patients have questions or concerns about their medications once they are home. Do you have any questions about taking your medications or which medication you should be on? No Do you need any medication refills at this time, including any of the medications you might take only when needed? No ACTION TAKEN: No action required For RNs or Pharmacy completing outreach ONLY, was a medication review completed? N/A SOCIAL: We would like to make sure you have what you need so that your basics needs are met - including your personal safety. HEALTH LEADS SCREENING TOOL QUESTIONS: Do you often feel you lack companionship? No Do you ever need help reading or understanding hospital materials? No In the last 12 months, have you changed how you take medications to save money? No In the past 12 months, has lack of transportation kept you from medical appointments, work or getting things you need like food, or supplies? No In the last 12 months, did you ever eat less than you felt you should because there wasn't enough money for food? No During the winter, do you anticipate having a problem paying your heating bill? No In the next 2 months, are you worried you might not have stable housing? No Would you like to speak with a social work steam oven operator to help give you support for any of these needs? No It can be normal to feel anxious or down during a time like this. Would you like to talk to a mental health professional about how you have been feeling? No ACTION TAKEN: No action taken DISCHARGE INTRUCTIONS: Your discharge instructions / After Visit Summary (AVS) are important in guiding you through the recovery process. Do you have any questions related to your discharge instructions? No Do you have all the necessary equipment and supplies at home? Yes ACTION TAKEN: No action required WRAP AROUND SERVICES: N/A Patient educated on importance of primary care provider follow up visit as well as specialty provider follow up visits as indicated. Inform the patient that if they have any questions or concerns prior to that appointment, to call their Primary Care Provider 's office right away. Primary care provider first education provided. I would like to help you schedule a hospital follow-up virtual or telephone visit with your PCP. ACTION TAKEN: TCM Primary Care Provider Visit Scheduled: No - Only wants to follow up with specialty. Your doctor would like us to remind you of the recommendations regarding the coronavirus (Covid19) outbreak: Avoid public places as much as possible. Avoid close contact (within 6 feet) with others you don't live with, especially if they are sick. Stay home if you are sick. Wash your hands regularly for at least 20 seconds with soap and water. Wear a cloth mask in public places to help reduce community spread. Do not go to your Doctor's office unless instructed to do so. For any non-emergency symptoms, call your Doctor's office to get instructions on how to manage (we might recommend a telephone or virtual visit). For emergency symptoms, proceed to Emergency Department as usual but inform them of cough and fever symptoms CHAY if present (or call on the way if possible). [facility] 03-04-2023 Note Patient Outreach (AG INTMLW) TRESA GARAY ([id number]) 1970 F Date Time Provider Department 03/04/23 KHADRA RICHEY AGINTMLW During your visit today, we recorded the following information about you: Khadra Richey LPN 03/04/2023 12:16 PM Signed TRANSITIONAL CARE MANAGEMENT (TCM) COMMUNITY MONITORING PROGRAM - [facility] Provider Action/FYI: Pt states she is doing well, denies worsening pain. Discomfort still remains. She did reach out to the urologist office this morning and left a voicemail requesting an appointment. Denies the need for PCP appt at this time. Taking antibiotic without difficulty. Instructed to call the office with any further questions or concerns. SUMMARY: Pt discharged from [facility] on 03/03/2023. Admitted for: Acute pyelitis Risk score: 13 Patient seen Inpatient RYANNE Visit? N/A. Patient seen ICARE Program? N/A. Contact made with patient: Yes Hi my name is Khadra Richey LPN and I am calling from the [facility] on behalf of your PCP, Cortez Pinedo APRN.MARINE SERVICE STATION ATTENDANT I understand you were recently in the hospital so I am calling to check in with you to ensure you are feeling well now that you?re home. Do you mind if I ask you a few questions related to your hospital stay and well-being Yes Contact with patient post discharge, spoke to patient. Patient identified by name and . Do you feel your health is BETTER, WORSE, or the SAME since leaving the hospital? Better ACTION TAKEN: Patient indicated symptoms are better or same, no action required. Continue outreach. N/A MEDICATIONS: Many patients have questions or concerns about their medications once they are home. Do you have any questions about taking your medications or which medication you should be on? No Do you need any medication refills at this time, including any of the medications you might take only when needed? No ACTION TAKEN: No action required For RNs or Pharmacy completing outreach ONLY, was a medication review completed? N/A SOCIAL: We would like to make sure you have what you need so that your basics needs are met - including your personal safety. HEALTH LEADS SCREENING TOOL QUESTIONS: Do you often feel you lack companionship? No Do you ever need help reading or understanding hospital materials? No In the last 12 months, have you changed how you take medications to save money? No In the past 12 months, has lack of transportation kept you from medical appointments, work or getting things you need like food, or supplies? No In the last 12 months, did you ever eat less than you felt you should because there wasn't enough money for food? No During the winter, do you anticipate having a problem paying your heating bill? No In the next 2 months, are you worried you might not have stable housing? No Would you like to speak with a social work steam oven operator to help give you support for any of these needs? No It can be normal to feel anxious or down during a time like this. Would you like to talk to a mental health professional about how you have been feeling? No ACTION TAKEN: No action taken DISCHARGE INTRUCTIONS: Your discharge instructions / After Visit Summary (AVS) are important in guiding you through the recovery process. Do you have any questions related to your discharge instructions? No Do you have all the necessary equipment and supplies at home? Yes ACTION TAKEN: No action required WRAP AROUND SERVICES: N/A Patient educated on importance of primary care provider follow up visit as well as specialty provider follow up visits as indicated. Inform the patient that if they have any questions or concerns prior to that appointment, to call their Primary Care Provider 's office right away. Primary care provider first education provided. I would like to help you schedule a hospital follow-up virtual or telephone visit with your PCP. ACTION TAKEN: TCM Primary Care Provider Visit Scheduled: No - Only wants to follow up with specialty. Your doctor would like us to remind you of the recommendations regarding the coronavirus (Covid19) outbreak: Avoid public places as much as possible. Avoid close contact (within 6 feet) with others you don't live with, especially if they are sick. Stay home if you are sick. Wash your hands regularly for at least 20 seconds with soap and water. Wear a cloth mask in public places to help reduce community spread. Do not go to your Doctor's office unless instructed to do so. For any non-emergency symptoms, call your Doctor's office to get instructions on how to manage (we might recommend a telephone or virtual visit). For emergency symptoms, proceed to Emergency Department as usual but inform them of cough and fever symptoms CHAY if present (or call on the way if possible). Allergies As of Date: 03/04/2023 N (more content not included)... [facility] 03-02-2023 Note HNO ID: [id number] Author: DARIUS VELASQUEZ RN Service: ? Author Type: Registered Nurse Type: Nursing Progress Note Filed: 03/02/2023 09:16 Note Text: EKG Sinus bradycardia otherwise normal ECG [facility] 01-30-2023 Miscellaneous Notes Called pt with results let her know she needs to repeat labs in 3 months. Pt stated her muscles are feeling a little better Ilya Borrero MA ----- Message from Cortez Pinedo APRN.MARINE SERVICE STATION ATTENDANT sent at 01/30/2023 12:49 PM EST ----- Inflammation markers normal Lipids at goal Tsh wnl cmp unremarkable WBC now normal. Plt slightly elevated will continue routine monitoring. Will recheck in 3 months documented in this encounter [facility] 01-28-2023 Note HNO ID: [id number] Author: Cortez Pinedo APRN.MARINE SERVICE STATION ATTENDANT Service: ? Author Type: Nurse Practitioner Type: Progress Notes Filed: 01/29/2023 6:58 AM Note Text: This note was created using [employer]. Wally Deanfish Garay is a 52 year old female here today for routine follow up. PMH depression, anxiety, heartburn. Patient denies changes in health since last office visit. Reports feeling well. She reports having Covid and her second shingrix vaccine 1.5 wks ago and since she has had all over muscle and joint pains. Feels weakness in her arms. She does feel like it has improved. Reports started 1-2 days after getting her shots. No hx guillain barre. No change in bowel or bladder, sob. I reviewed her past medical, surgical, social, and family histories today and updated chart. Allergies, chronic medications, and supplements were also reviewed and her list is now up to date. Anxiety and depression: chronic, not controlled. She is taking Celexa 40 mg daily, she is taking Wellbutrin 150 mg once daily(ordered twice daily). She is taking the hydroxyzine at bedtime which helps her sleep. Denies suicidal thoughts. Reports she still has trouble with dealing with the loss of her son 4 yrs ago. She has not had counseling for this. She had gone to [facility] in the past for counseling. Heartburn: she is taking lansoprazole daily for management. Kidney stones: reports having surgery on her right kidney in her mid 40s. States she also has stones. She sees Dr Glover in [place] for mangement. She sees her every 6 months. Preventative: hx hysterectomy in her 40s reports due to endometriosis. She sees [facility] was seeing Dr Lee. She reports having colonoscopy but unable to due to complete due to inadequate prep. She is overdue for her mammogram. Last one was 01/2020. she reports she had shingles and COVID vaccine 1.5 wks ago and states since she has had muscle aches and pains in her back, legs, arms etc. Some elements of above documentation were copied from my progress note of 10/11/22 and have been reexamined and updated where appropriate. All elements reflect the current assessment and medical decision making today . ALLERGIES Allergen Reactions Bactrim [Sulfametho* Diarrhea, Vomiting Ciprofloxacin In 5 * Itching, Other: See Comments Redness as well Itching and redness noted on arm and IV site after a small dose given for per-op antibiotic. Pt states, I did not know I was allergic to that. Current Outpatient Medications Medication Sig Dispense Refill hydrOXYzine HCl (ATARAX) 25 mg tablet Take 1 tablet by mouth every 6 hours as needed (for itching and anxiety). 90 tablet 1 citalopram (CELEXA) 40 mg tablet Take 1 tablet by mouth once daily. 90 tablet 1 lansoprazole (PREVACID) 30 mg capsule TAKE 1 CAPSULE DAILY 90 capsule 3 buPROPion SR (ZYBAN SR; WELLBUTRIN SR) 150 mg 12 hr tablet TAKE 1 TABLET TWICE A DAY 60 tablet 0 fluticasone (FLONASE ALLERGY RELIEF) 50 mcg/actuation nasal spray Use 1 Currie in each nostril once daily. 15 mL 1 Melatonin 5 mg tab Take 5 mg by mouth daily at bedtime. No current facility-administered medications for this visit. ACTIVE PROBLEM LIST Upj (Ureteropelvic Junction) Obstruction Depressive Disorder History of Kidney Stones Pulmonary Nodules PAST MEDICAL HISTORY Diagnosis Date Chest pain Patient denied any cardiac problems Depressive disorder Dysmenorrhea Heart murmur Patient denied Hydronephrosis Pelvic pain in female Female genital organ symptoms Renal colic Unspecified renal colic Smoker TIA (transient ischemic attack) at 26; seen in ER and told it was a mini stroke. Had subsequent carotid US for a few years, and found to have no issues Urinary tract infection 10/2012 Uterine leiomyoma PAST SURGICAL HISTORY Procedure Laterality Date APPENDECTOMY HX 2004 Laparoscopic CYSTOSCOPY 11/26/12 right retrograde pyelogram CYSTOURETHROSCOPY 12/26/2012 Cystoscopy/Stent Extraction Dr. Baron OVARIAN CYSTECTOMY UNI/BI 1987 Laparoscopy PAST SURGICAL HISTORY OF 01/07/2013 cystoscopy, ureteral JJ stent right PLASTIC SURGERY NECK OR UTERUS, CERVICOPL 1987 Lx; DANDC, cysts on fallopian tube TONSILLECTOMY HX 1974 TOTAL ABDOM HYSTERECTOMY 03/2014 Social History Tobacco Use Smoking status: Former Packs/day: 0.50 Years: 25.00 Additional pack years: 0.00 Total pack years: 12.50 Types: Cigarettes Quit date: 01/23/2015 Years since quittin.0 Smokeless tobacco: Never Tobacco comments: Vapor Cigarette, quit cigarettes 12/2015. Vaping Use Vaping Use: Some days Substance Use Topics Alcohol use: Not Currently Comment: occ Drug use: No Family History Problem Relation Age of Onset Hypertension Mother Asthma Mother other (unknown) Father Feeling nervous, anxious, or on edge 3 Nearly every day Not being able to stop or control worrying 3 Nearly every day Worrying too much about different t (more content not included)... [facility] 01-16-2023 Miscellaneous Notes Last OV 08/27/22 Apt 01/28/23 Pharmacy calls in requesting the following refill(s): Requested Prescriptions Pending Prescriptions Disp Refills hydrOXYzine HCl (ATARAX) 25 mg tablet 90 tablet 1 Sig: Take 1 tablet by mouth every 6 hours as needed (for itching and anxiety). citalopram (CELEXA) 40 mg tablet 90 tablet 1 Sig: Take 1 tablet by mouth once daily. Ilya Borrero MA documented in this encounter [facility] 12-21-2022 Note HNO ID: [id number] Author: Kaci Connor MA Service: ? Author Type: Forging Die Sinker Type: Progress Notes Filed: 12/21/2022 1:56 PM Note Text: Immunizations were given as ordered. Vaccination information sheet(s) given. Kaci Connor MA [facility] 12-21-2022 History of Presen t illness Narrative Immunizations were given as ordered. Vaccination information sheet(s) given. Kaci Connor MA documented in this encounter [facility] 12-17-2022 Miscellaneous Notes Called pt to see what refill she needed looks like she should have enough to get her till February Ilya Borrero MA ----- Message from Angela Doe sent at 12/17/2022 3:33 PM EDT ----- Regarding: FW: [address] [place] [address]/Mary/Cortez Pinedo APRN.MARINE SERVICE STATION ATTENDANT/Patient requests a call back - anxiety medication ----- Message ----- From: Yessi Mays Sent: 12/17/2022 3:18 PM EDT To: Harsh Soni [employer] Pool; # Subject: [address] [place] [address]/Mary/Cortez Pinedo APRN.MARINE SERVICE STATION ATTENDANT# Subject Line Format: Medicine / [Provider Name] / [Issue] Patient has been identified by name and Date of (Y/N): Y Patient: Tresa Garay Date of : 1970 Provider for this encounter: Cortez Pinedo APRN.CNP Reason for the call/escalation: Patient requests a call back - anxiety medication . Was Patient Referred to [facility]/Seek Emergency Treatment (Y/N): N Did Patient Agree (Y/N): N/A Was An Attempt Made To Transfer The Patient To The Office (Y/N): N Were You Able To Reach Someone At The Office (Y/N): N/A If Yes - Patient Was Transferred To (Caregivers Name): N/A If No - Which [facility] [employer] Motel Operator Did You Speak With Regarding This Patient: N/A Was an appointment scheduled (Y/N): N/A Reason patient was requesting visit (RFV/signs and symptoms/diagnosis) : N/A Person calling if other than patient: N Return call to if other than patient: N Best contact number: [phone] Thank you, Yessi Mays December 17, 2022 3:16 PM documented in this encounter [facility] 09-13-2022 Miscellaneous Notes Pharmacy requesting refills as follows: Last Office Visit 08/27/22. Last Refill 02/27/22. Requested Prescriptions Pending Prescriptions Disp Refills lansoprazole (PREVACID) 30 mg capsule [Pharmacy Med Name: LANSOPRAZOLE DR CAPS 30MG] 90 capsule 3 Sig: TAKE 1 CAPSULE DAILY Please review and advise. Falguni Tyler MA documented in this encounter [facility] 08-27-2022 Note HNO ID: [id number] Author: Geno Archer, DO Service: ? Author Type: Physician Type: Progress Notes Filed: 08/27/2022 3:27 PM Note Text: Subjective HPI Pt is here for ER f/u on 08/18 for right sided chest and back pain, shortness of breath with movement, and cough She was dx with musculoskeletal pain and acute UTI without hematuria CT chest was normal The ER doctor thought it was pleurisy She continues to have occasional sharp pain in the right chest and upper right back She was given Rx for naproxen and flexeril, which she is taking She is no longer coughing, but occasionally has to clear her throat She continues to have a little shortness of breath when she walks far She injured her back in 2019 and has had back pain since then She is under worker's comp, has been taking flexeril for the pain, and will be getting an epidural injection for pain soon ALLERGIES Allergen Reactions Bactrim [Sulfametho* Diarrhea, Vomiting Ciprofloxacin In 5 * Itching, Other: See Comments Redness as well Itching and redness noted on arm and IV site after a small dose given for per-op antibiotic. Pt states, I did not know I was allergic to that. Current Outpatient Medications Medication Sig Dispense Refill buPROPion SR (ZYBAN SR; WELLBUTRIN SR) 150 mg 12 hr tablet TAKE 1 TABLET TWICE A DAY 60 tablet 0 lansoprazole (PREVACID) 30 mg capsule Take 1 capsule by mouth once daily. 90 capsule 1 hydrOXYzine HCl (ATARAX) 25 mg tablet Take 1 tablet by mouth every 6 hours as needed (for itching and anxiety). 90 tablet 1 citalopram (CELEXA) 40 mg tablet Take 1 tablet by mouth once daily. 90 tablet 1 fluticasone (FLONASE ALLERGY RELIEF) 50 mcg/actuation nasal spray Use 1 Currie in each nostril once daily. 15 mL 1 Melatonin 5 mg tab Take 5 mg by mouth daily at bedtime. No current facility-administered medications for this visit. ACTIVE PROBLEM LIST Upj (Ureteropelvic Junction) Obstruction Depressive Disorder History of Kidney Stones Pulmonary Nodules Social History Tobacco Use Smoking status: Former Packs/day: 0.50 Years: 25.00 Pack years: 12.50 Types: Cigarettes Quit date: 01/23/2015 Years since quittin.5 Smokeless tobacco: Never Tobacco comments: Vapor Cigarette, quit cigarettes 12/2015. Vaping Use Vaping Use: Some days Substance Use Topics Alcohol use: Not Currently Alcohol/week: 0.0 standard drinks Comment: occ Drug use: No Family History Problem Relation Age of Onset Hypertension Mother Asthma Mother other (unknown) Father Reviewed past medical history, family history and surgeries. All medications and supplements were reviewed with the patient. Review of Systems Constitutional: Negative for chills, diaphoresis, fever, malaise/fatigue and weight loss. HENT: Negative for ear pain and hearing loss. Eyes: Negative for blurred vision and double vision. Respiratory: Positive for shortness of breath. Negative for cough. Cardiovascular: Positive for chest pain. Negative for palpitations and leg swelling. Gastrointestinal: Negative for constipation, diarrhea and heartburn. Genitourinary: Negative for dysuria and frequency. Musculoskeletal: Positive for back pain. Negative for falls, joint pain and myalgias. Skin: Negative for itching and rash. Neurological: Negative for dizziness, weakness and headaches. Endo/Heme/Allergies: Does not bruise/bleed easily. Psychiatric/Behavioral: Negative for depression and substance abuse. The patient does not have insomnia. Objective BP 110/60 Pulse 68 Temp 36.8 ?C (98.2 ?F) Ht 162.6 cm (5' 4 ) Wt 78.9 kg (174 lb) LMP 03/03/2013 SpO2 97% BMI 29.87 kg/m? Physical Exam Constitutional: Appearance: Normal appearance. HENT: Head: Normocephalic and atraumatic. Nose: Nose normal. Mouth/Throat: Mouth: Mucous membranes are moist. Dentition: Normal dentition. Eyes: General: Lids are normal. Extraocular Movements: Extraocular movements intact. Conjunctiva/sclera: Conjunctivae normal. Pupils: Pupils are equal, round, and reactive to light. Neck: Thyroid: No thyroid mass or thyromegaly. Vascular: No carotid bruit. Trachea: Phonation normal. Cardiovascular: Rate and Rhythm: Normal rate and regular rhythm. Heart sounds: Normal heart sounds. No murmur heard. No friction rub. No gallop. Pulmonary: Effort: Pulmonary effort is normal. Breath sounds: Normal breath sounds. No wheezing or rales. Abdominal: General: Bowel sounds are normal. There is no distension. Palpations: Abdomen is soft. There is no mass. Tenderness: There is no abdominal tenderness. Musculoskeletal: General: Tenderness (tender over right mid ribs posteriorly, no midline spine tenderness) present. No swelling. Normal range of motion. Cervical back: Normal range of motion and neck supple. No edema. Lymphadenopathy: Cervical: No cervical adenopathy. Skin: General: Skin is warm and dry. F (more content not included)... [facility] 08-27-2022 History of Presen t illness Narrative Subjective HPI Pt is here for ER f/u on 08/18 for right sided chest and back pain, shortness of breath with movement, and cough She was dx with musculoskeletal pain and acute UTI without hematuria CT chest was normal The ER doctor thought it was pleurisy She continues to have occasional sharp pain in the right chest and upper right back She was given Rx for naproxen and flexeril, which she is taking She is no longer coughing, but occasionally has to clear her throat She continues to have a little shortness of breath when she walks far She injured her back in 2019 and has had back pain since then She is under worker's comp, has been taking flexeril for the pain, and will be getting an epidural injection for pain soon ALLERGIES Allergen Reactions Bactrim [Sulfametho* Diarrhea, Vomiting Ciprofloxacin In 5 * Itching, Other: See Comments Redness as well Itching and redness noted on arm and IV site after a small dose given for per-op antibiotic. Pt states, I did not know I was allergic to that. Current Outpatient Medications Medication Sig Dispense Refill buPROPion SR (ZYBAN SR; WELLBUTRIN SR) 150 mg 12 hr tablet TAKE 1 TABLET TWICE A DAY 60 tablet 0 lansoprazole (PREVACID) 30 mg capsule Take 1 capsule by mouth once daily. 90 capsule 1 hydrOXYzine HCl (ATARAX) 25 mg tablet Take 1 tablet by mouth every 6 hours as needed (for itching and anxiety). 90 tablet 1 citalopram (CELEXA) 40 mg tablet Take 1 tablet by mouth once daily. 90 tablet 1 fluticasone (FLONASE ALLERGY RELIEF) 50 mcg/actuation nasal spray Use 1 Currie in each nostril once daily. 15 mL 1 Melatonin 5 mg tab Take 5 mg by mouth daily at bedtime. No current facility-administered medications for this visit. ACTIVE PROBLEM LIST Upj (Ureteropelvic Junction) Obstruction Depressive Disorder History of Kidney Stones Pulmonary Nodules Social History Tobacco Use Smoking status: Former Packs/day: 0.50 Years: 25.00 Pack years: 12.50 Types: Cigarettes Quit date: 01/23/2015 Years since quittin.5 Smokeless tobacco: Never Tobacco comments: Vapor Cigarette, quit cigarettes 12/2015. Vaping Use Vaping Use: Some days Substance Use Topics Alcohol use: Not Currently Alcohol/week: 0.0 standard drinks Comment: occ Drug use: No Family History Problem Relation Age of Onset Hypertension Mother Asthma Mother other (unknown) Father Reviewed past medical history, family history and surgeries. All medications and supplements were reviewed with the patient. Review of Systems Constitutional: Negative for chills, diaphoresis, fever, malaise/fatigue and weight loss. HENT: Negative for ear pain and hearing loss. Eyes: Negative for blurred vision and double vision. Respiratory: Positive for shortness of breath. Negative for cough. Cardiovascular: Positive for chest pain. Negative for palpitations and leg swelling. Gastrointestinal: Negative for constipation, diarrhea and heartburn. Genitourinary: Negative for dysuria and frequency. Musculoskeletal: Positive for back pain. Negative for falls, joint pain and myalgias. Skin: Negative for itching and rash. Neurological: Negative for dizziness, weakness and headaches. Endo/Heme/Allergies: Does not bruise/bleed easily. Psychiatric/Behavioral: Negative for depression and substance abuse. The patient does not have insomnia. Objective BP 110/60 Pulse 68 Temp 36.8 C (98.2 F) Ht 162.6 cm (5' 4 ) Wt 78.9 kg (174 lb) LMP 03/03/2013 SpO2 97% BMI 29.87 kg/m Physical Exam Constitutional: Appearance: Normal appearance. HENT: Head: Normocephalic and atraumatic. Nose: Nose normal. Mouth/Throat: Mouth: Mucous membranes are moist. Dentition: Normal dentition. Eyes: General: Lids are normal. Extraocular Movements: Extraocular movements intact. Conjunctiva/sclera: Conjunctivae normal. Pupils: Pupils are equal, round, and reactive to light. Neck: Thyroid: No thyroid mass or thyromegaly. Vascular: No carotid bruit. Trachea: Phonation normal. Cardiovascular: Rate and Rhythm: Normal rate and regular rhythm. Heart sounds: Normal heart sounds. No murmur heard. No friction rub. No gallop. Pulmonary: Effort: Pulmonary effort is normal. Breath sounds: Normal breath sounds. No wheezing or rales. Abdominal: General: Bowel sounds are normal. There is no distension. Palpations: Abdomen is soft. There is no mass. Tenderness: There is no abdominal tenderness. Musculoskeletal: General: Tenderness (tender over right mid ribs posteriorly, no midline spine tenderness) present. No swelling. Normal range of motion. Cervical back: Normal range of motion and neck supple. No edema. Lymphadenopathy: Cervical: No cervical adenopathy. Skin: General: Skin is warm and dry. Findings: No erythema or rash. Nails: There is no clubbing. Neurological: Mental Status: She is alert and oriented to person, place, and time. Cranial Nerves: No cranial nerve deficit. Motor: Motor function is intact. Coordination: Coordination normal. Gait: Gait is intact. Psychiatric: Attention and Perception: Attention normal. Mood and Affect: Mood and affect normal. Speech: Speech normal. Behavior: Behavior normal. Behavior is cooperative. Thought Content: Thought content normal. Cognition and Memory: Cognition and memory normal. Judgment: Judgment normal. Results CT CHEST WO IVCON ([id number]) (Order [id number]) Patient Info Patient Name Sex Tresa Garay ([id number]) Female 1970 08/19/2022 3:11 AM - Radiology, [place] In Impression IMPRESSION: No CT evidence of acute abnormality. Wool Shearer: PSCB Transcribe Date/Time: Aug 19 2022 3:05A Dictated by : MARY DICKEY MD This examination was interpreted and the report reviewed and electronically signed by: MARY DICKEY MD on Aug 19 2022 3:09AM EST Results-Findings * * *Final Report* * * DATE OF EXAM: Aug 19 2022 1:50AM [facility] 0541 - CT CHEST WO IVCON / PROCEDURE REASON: Chest pain, nonspecific * * * * Physician Interpretation * * * * EXAMINATION: CHEST CT WITHOUT CONTRAST CLINICAL HISTORY: Chest pain Technique: Spiral CT acquisition of the chest from the thoracic inlet to the upper abdomen without contrast. CT Radiation dose: Integrated Dose-length product (DLP) for this visit = 386.15 mGy*cm CT Dose Reduction Employed: Automated exposure control (AEC) Comparison: CT 04/11/2018 RESULT: Mediastinum: The thoracic aorta and main pulmonary artery are normal in caliber. The cardiac chambers are normal in size. Scattered coronary artery atherosclerotic calcifications are noted, although the study is not optimized for coronary assessment. No pericardial effusion or thickening. Bones and soft tissues: No destructive bone lesion. Chest wall is unremarkable. Upper abdomen: Right renal pelviectasis visible at the upper pole of the right kidney is unchanged from 04/11/2018. Nonobstructing 2 mm calcification at the right kidney upper pole. Braille Typist (topogram) images: No additional findings. Result History CT CHEST WO IVCON (Order #[id number]) on 08/19/2022 - Order Result History Report Result Information Status Provider Status Final result (08/19/2022 3:11 AM) Ordered Exam Performed Date and Time 08/19/2022 1:50 AM Resulting Agency [email or web address] [id number] [facility] [id number] Patient Images Get Images ASSESSMENT/PLAN: 1. Right-sided chest pain - ICD9: 786.50, ICD10: R07.9 (primary diagnosis) Workup in ED negative for ACS, PE Pain is improving 2. Acute right-sided thoracic back pain - ICD9: 724.1, ICD10: M54.6 Dx with pleurisy, pain is improving with naprosyn 3. Anxiety - ICD9: 300.00, ICD10: F41.9 Continue HYDROXYZINE HCL 25 MG TABLET as needed 4. Depressive disorder - ICD9: 311, ICD10: F32.A Continue CITALOPRAM 40 MG TABLET 5. Acute cystitis without hematuria - ICD9: 595.0, ICD10: N30.00 Pt was treated with macrobid in the ED, UTI sx resolved Geno Archer DO documented in this encounter [facility] 08-21-2022 Note Patient Outreach (AG FAMPLE) TANISHAALEXTRESA A ([id number]) 1970 F Date Time Provider Department 08/21/22 CORTEZ PINEDO During your visit today, we recorded the following information about you: Falguni Tyler MA 08/21/2022 11:20 AM Signed ED Follow Up: Patient discharged from [facility] ED on 08/18/22. 1. How are you feeling since your ED visit? Still getting some chest pain Have your symptoms improved or resolved? Yes 2. Were you prescribed any medications while in the ED or advised to stop any medication? Yes - If yes, were you able to fill your prescriptions? Yes -if stopped medication, what was the medication? N/A 3. Were you advised to schedule a follow up appointment with your provider? Yes - If no, Do you feel like you need an appointment scheduled? Yes - If yes, Do you need this scheduled now or has this already been scheduled? Yes 4. Were you able to contact the office or parts counterperson provider prior to your ED visit? No 5. Is there anything else I can do for you today? No Falguni Tyler MA Allergies As of Date: 08/21/2022 Noted Allergy Reaction BACTRIM (SULFAMETHOXAZOLE-TRIMETH*2017 6 - Diarrhea 11 - Vomiting CIPROFLOXACIN IN 5 % DEXTROSE 11/26/2012 9 - Itching 14 - Other: See Comments Comments: Redness as well Itching and redness noted on arm and IV site after a small dose given for per-op antibiotic. Pt states, I did not know I was allergic to that. Date Reviewed: 08/18/2022 Reviewed by: Amber Tam, JC - Fully Assessed Prescriptions as of 08/21/2022 - nitrofurantoin monohydrate and macrocrystal (MACROBID) 100 mg capsule Take 1 capsule by mouth twice daily for 5 days. - cyclobenzaprine (FLEXERIL) 10 mg tablet Take 1 tablet by mouth every 8 hours as needed for up to 5 days. - naproxen (NAPROSYN) 500 mg tablet Take 1 tablet by mouth twice daily as needed for pain for up to 7 days. TAKE WITH FOOD - buPROPion SR (ZYBAN SR; WELLBUTRIN SR) 150 mg 12 hr tablet TAKE 1 TABLET TWICE A DAY - lansoprazole (PREVACID) 30 mg capsule Take 1 capsule by mouth once daily. - hydrOXYzine HCl (ATARAX) 25 mg tablet Take 1 tablet by mouth every 6 hours as needed (for itching and anxiety). - citalopram (CELEXA) 40 mg tablet Take 1 tablet by mouth once daily. - fluticasone (FLONASE ALLERGY RELIEF) 50 mcg/actuation nasal spray Use 1 Currie in each nostril once daily. - Melatonin 5 mg tab Take 5 mg by mouth daily at bedtime. Problem List As Of Date 08/21/2022 Noted Resolved UPJ (ureteropelvic junction) obstruction [N13.5]11/26/2012 Depressive disorder [F32.A] History of kidney stones [Z87.442] 08/27/2016 Pulmonary nodules [R91.8] 04/01/2018 Encounter Status:Closed by FALGUNI TYLER on 08/21/22 [facility] 08-21-2022 Note HNO ID: [id number] Author: Falguni Tyler MA Service: ? Author Type: Forging Die Sinker Type: Progress Notes Filed: 08/21/2022 11:20 AM Note Text: ED Follow Up: Patient discharged from [facility] ED on 08/18/22. 1. How are you feeling since your ED visit? Still getting some chest pain Have your symptoms improved or resolved? Yes 2. Were you prescribed any medications while in the ED or advised to stop any medication? Yes - If yes, were you able to fill your prescriptions? Yes -if stopped medication, what was the medication? N/A 3. Were you advised to schedule a follow up appointment with your provider? Yes - If no, Do you feel like you need an appointment scheduled? Yes - If yes, Do you need this scheduled now or has this already been scheduled? Yes 4. Were you able to contact the office or parts counterperson provider prior to your ED visit? No 5. Is there anything else I can do for you today? No Falguni Tyler MA [facility] 08-21-2022 History of Presen t illness Narrative ED Follow Up: Patient discharged from [facility] ED on 08/18/22. 1. How are you feeling since your ED visit? Still getting some chest pain Have your symptoms improved or resolved? Yes 2. Were you prescribed any medications while in the ED or advised to stop any medication? Yes - If yes, were you able to fill your prescriptions? Yes -if stopped medication, what was the medication? N/A 3. Were you advised to schedule a follow up appointment with your provider? Yes - If no, Do you feel like you need an appointment scheduled? Yes - If yes, Do you need this scheduled now or has this already been scheduled? Yes 4. Were you able to contact the office or parts counterperson provider prior to your ED visit? No 5. Is there anything else I can do for you today? No Falguni Tyler MA documented in this encounter [facility] 08-08-2022 Miscellaneous Notes pharmacy electronically requesting refills as follows: Last seen 10/11/21 . Last refill 02/27/22. No future appointments. Requested Prescriptions Pending Prescriptions Disp Refills buPROPion SR (ZYBAN SR; WELLBUTRIN SR) 150 mg 12 hr tablet [Pharmacy Med Name: BUPROPION HCL SR TABS 150MG] 180 tablet 3 Sig: TAKE 1 TABLET TWICE A DAY Please review and advise. Kaci Connor MA documented in this encounter [facility] 03-07-2022 Miscellaneous Notes Called pt left VM with results Ilya Borrero MA ----- Message from Cortez Pinedo APRN.MARINE SERVICE STATION ATTENDANT sent at 03/06/2022 4:19 PM EST ----- Mammogram negative IMPRESSION IMPRESSION: NEGATIVE There is no mammographic evidence of malignancy. A 1 year screening mammogram is recommended. documented in this encounter [facility] 03-06-2022 Miscellaneous Notes March 06, 2022 PID: [id number] Tresa ADeni Garay [address] [place] [address] [place] [id number] Dear Deni Garay, We are pleased to inform you that the results of your recent breast imaging exam on 03/06/2022 are normal. Your mammogram demonstrates that you have dense breast tissue, which could hide abnormalities. Dense breast tissue, in and of itself, is a relatively common condition. Therefore, this information is not provided to cause undue concern; rather, it is to raise your awareness and promote discussion with your health care provider regarding the presence of dense breast tissue in addition to other risk factors. Early detection of cancer is very important. We also understand recommendations regarding breast cancer screening are controversial. Please discuss with your primary care provider which strategy is best for you and whether a mammogram is right for you. Your imaging studies and report will be kept on file at [facility] as part of your permanent medical record and are available for your continuing care. Thank you for allowing us to help in meeting your health care needs. Sincerely, Dr. Christopher Interpreting Radiologist [facility] (Normal over 40) documented in this encounter [facility] 02-27-2022 Miscellaneous Notes Last O V10/11/21 Labs 12/27/21 Patient phones requesting refills as follows: Requested Prescriptions Pending Prescriptions Disp Refills buPROPion SR (ZYBAN SR; WELLBUTRIN SR) 150 mg 12 hr tablet 180 tablet 1 Sig: Take 1 tablet by mouth twice daily. lansoprazole (PREVACID) 30 mg capsule 90 capsule 1 Sig: Take 1 capsule by mouth once daily. hydrOXYzine HCl (ATARAX) 25 mg tablet 90 tablet 1 Sig: Take 1 tablet by mouth every 6 hours as needed (for itching and anxiety). citalopram (CELEXA) 40 mg tablet 90 tablet 1 Sig: Take 1 tablet by mouth once daily. Please review and advise. Ilya Borrero MA Pt also has a mammogram scheduled for 03/06/22 order needs placed documented in this encounter [facility] 01-29-2022 Miscellaneous Notes Last OV 10/11/21 Labs 12/27/21 Pt will call next week to send to mail order she is completely out and needs a temp supply sent to local Patient phones requesting refills as follows: Requested Prescriptions Pending Prescriptions Disp Refills buPROPion SR (ZYBAN SR; WELLBUTRIN SR) 150 mg 12 hr tablet 60 tablet 0 Sig: Take 1 tablet by mouth twice daily. Please review and advise. Ilya Borrero MA documented in this encounter [facility] 01-01-2022 Miscellaneous Notes Called pt let her know the results Ilya Borrero MA ----- Message from Cortez Pinedo APRN.[employer] ATTENDANT sent at 12/30/2021 7:56 PM EDT ----- Vit d wnl Hiv negative documented in this encounter [facility] 12-26-2021 Miscellaneous Notes Called pt let her know orders were placed Ilya Borrero MA Orders placed Patient's 10/11/21 lab orders have and patient would like to come tomorrow to complete them. Please file new orders. Thanks! Kaci Connor MA documented in this encounter [facility] 10-11-2021 Instructions Cortez Pinedo APRN.[employer]ATION ATTENDANT - 10/11/2021 2:42 PM EDT Assessment and Plan ASSESSMENT/PLAN: 1. Wellness examination - ICD9: V70.0, ICD10: Z00.00 (primary diagnosis) - Counseled on healthy diet and regular exercise - Calcium intake with supplements or by diet of 1000 mg/day for under 50, 7144-3652 mg/day for 50+ - Mammogram ordered - exam recommended once yearly - Depression screening tool completed and reviewed with patient. Based on score and interview, patient is already diagnosed with depression and recommended continuing current plan of care. - Follow up for annual exam in one year 2. Depressive disorder - ICD9: 311, ICD10: F32.A - Chronic, stable continue current medications - BUPROPION HCL SR 150 MG TABLET,12 HR SUSTAINED-RELEASE - CITALOPRAM 40 MG TABLET 3. Heartburn - ICD9: 787.1, ICD10: R12 - Chronic stable. - LANSOPRAZOLE 30 MG CAPSULE,DELAYED RELEASE 4. Anxiety - ICD9: 300.00, ICD10: F41.9 - Chronic stable, continue medications as ordered - HYDROXYZINE HCL 25 MG TABLET 5. Screening for lipid disorders - ICD9: V77.91, ICD10: Z13.220 - LIPID PANEL BASIC 6. Screening, anemia, deficiency, iron - ICD9: V78.0, ICD10: Z13.0 - CBC 7. Screening for thyroid disorder - ICD9: V77.0, ICD10: Z13.29 - TSH BLD 8. Encounter for screening for diabetes mellitus - ICD9: V77.1, ICD10: Z13.1 - COMP METABOLIC PANEL 9. Vitamin D deficiency - ICD9: 268.9, ICD10: E55.9 - VITAMIN D 25 HYDROXY 10. Screening for HIV (human immunodeficiency virus) - ICD9: V73.89, ICD10: Z11.4 - HIV 1 2 COMBO(AG/AB),WITH REFLEX TO DIFFERENTIATION 11. Encounter for hepatitis C screening test for low risk patient - ICD9: V73.89, ICD10: Z11.59 - HEP C AB IA W/CONF SCRN Cortez Pinedo APRN.[employer] ATTENDANT documented in this encounter [facility] 10-11-2021 History of Presen t illness Narrative This note was created using [employer]. Subjective Tresafish Garay is a 51 year old female here today for WAE. PMH depression, anxiety, and heartburn. Patient denies changes in health since last office visit. Reports feeling well. Denies concerns or complaints today. She continues low back pain and hip pain. This is under workers comp. I reviewed her past medical, surgical, social, and family histories today and updated chart. Allergies, chronic medications, and supplements were also reviewed and her list is now up to date. Anxiety and depression: chronic, stable. She is taking Celexa 40 mg daily, she is taking Wellbutrin 150 mg twice daily. She is taking the hydroxyzine at bedtime which helps her sleep. Occasional feeling of depression. Denies suicidal thoughts. Feels her symptoms more anxiety related. Heartburn: she is taking lansoprazole daily for management. Kidney stones: reports having surgery on her right kidney in her mid 40s. States she also has stones. She sees Dr Glover in [place] for mangement. She sees her every 6 months. Preventative: hx hysterectomy in her 40s reports due to endometriosis. She sees [facility] [employer] was seeing Dr Lee. She reports having colonoscopy but unable to due to complete due to inadequate prep. She is overdue for her mammogram. Last one was 01/2020. ALLERGIES Allergen Reactions Bactrim [Sulfametho* Diarrhea, Vomiting Ciprofloxacin In 5 * Itching, Other: See Comments Redness as well Itching and redness noted on arm and IV site after a small dose given for per-op antibiotic. Pt states, I did not know I was allergic to that. Current Outpatient Medications Medication Sig Dispense Refill buPROPion SR (ZYBAN SR; WELLBUTRIN SR) 150 mg 12 hr tablet Take 1 tablet by mouth twice daily. 90 tablet 0 lansoprazole (PREVACID) 30 mg capsule Take 1 capsule by mouth once daily. 90 capsule 0 hydrOXYzine HCl (ATARAX) 25 mg tablet Take 1 tablet by mouth every 6 hours as needed (for itching and anxiety). 56 tablet 2 citalopram (CELEXA) 40 mg tablet TAKE 1 TABLET DAILY 90 tablet 1 fluticasone (FLONASE ALLERGY RELIEF) 50 mcg/actuation nasal spray Use 1 Currie in each nostril once daily. 15 mL 1 Melatonin 5 mg tab Take 5 mg by mouth daily at bedtime. No current facility-administered medications for this visit. ACTIVE PROBLEM LIST Upj (Ureteropelvic Junction) Obstruction Depressive Disorder History of Kidney Stones Pulmonary Nodules PAST MEDICAL HISTORY Diagnosis Date Chest pain Patient denied any cardiac problems Depressive disorder Dysmenorrhea Heart murmur Patient denied Hydronephrosis Pelvic pain in female Female genital organ symptoms Renal colic Unspecified renal colic Smoker TIA (transient ischemic attack) at 26; seen in ER and told it was a mini stroke. Had subsequent carotid US for a few years, and found to have no issues Urinary tract infection 10/2012 Uterine leiomyoma PAST SURGICAL HISTORY Procedure Laterality Date APPENDECTOMY HX 2005 Laparoscopic CYSTOSCOPY 11/26/12 right retrograde pyelogram CYSTOURETHROSCOPY 12/26/2012 Cystoscopy/Stent Extraction Dr. Baron OVARIAN CYSTECTOMY UNI/BI 1987 Laparoscopy PAST SURGICAL HISTORY OF 01/07/2013 cystoscopy, ureteral JJ stent right\ PLASTIC SURGERY NECK OR UTERUS, CERVICOPL 1987 Lx; D&C, cysts on fallopian tube TONSILLECTOMY HX 1974 TOTAL ABDOM HYSTERECTOMY 03/2014 Social History Tobacco Use Smoking status: Former Packs/day: 0.50 Years: 25.00 Pack years: 12.50 Types: Cigarettes Quit date: 01/23/2015 Years since quittin.7 Smokeless tobacco: Never Tobacco comments: Vapor Cigarette, quit cigarettes 12/2015. Vaping Use Vaping Use: Some days Substance Use Topics Alcohol use: Not Currently Alcohol/week: 0.0 standard drinks Comment: occ Drug use: No Family History Problem Relation Age of Onset Hypertension Mother Asthma Mother other (unknown) Father Review of Systems Constitutional: Negative for activity change, appetite change, chills, diaphoresis, fatigue, fever and unexpected weight change. HENT: Negative for sore throat and trouble swallowing. Eyes: Negative for photophobia and visual disturbance. Respiratory: Negative for cough, chest tightness, shortness of breath and wheezing. Cardiovascular: Negative for chest pain, palpitations and leg swelling. Gastrointestinal: Negative for abdominal pain, blood in stool, constipation, diarrhea, nausea and vomiting. Endocrine: Negative. Genitourinary: Negative for difficulty urinating, dysuria and hematuria. Musculoskeletal: Negative for arthralgias, back pain, myalgias and neck pain. Skin: Negative. Neurological: Positive for headaches. Negative for dizziness and weakness. Occasional CROWE, thinks maybe migraine. Reports light sensitivity. Hematological: Bruises/bleeds easily. Reports increase bruising. Reports anytime she bumps herself she will bruise. Psychiatric/Behavioral: Positive for dysphoric mood. Negative for sleep disturbance. The patient is nervous/anxious. Objective BP 92/60 (BP Site: Left Arm, BP Position: Sitting, BP Cuff Size: Large Adult) Pulse 70 Temp 36.8 C (98.2 F) (Oral) Resp 18 Ht 162.6 cm (5' 4 ) Wt 73.1 kg (161 lb 3.2 oz) LMP 03/03/2013 SpO2 100% BMI 27.67 kg/m Physical Exam Vitals and nursing note reviewed. Constitutional: General: She is not in acute distress. Appearance: Normal appearance. She is not ill-appearing or diaphoretic. HENT: Head: Normocephalic and atraumatic. Right Ear: External ear normal. Left Ear: External ear normal. Nose: Nose normal. No congestion or rhinorrhea. Mouth/Throat: Pharynx: No oropharyngeal exudate. Eyes: General: Lids are normal. No scleral icterus. Right eye: No discharge. Left eye: No discharge. Conjunctiva/sclera: Conjunctivae normal. Pupils: Pupils are equal, round, and reactive to light. Neck: Vascular: Normal carotid pulses. No carotid bruit. Cardiovascular: Rate and Rhythm: Normal rate and regular rhythm. Pulses: Normal pulses. Heart sounds: Normal heart sounds, S1 normal and S2 normal. No murmur heard. No friction rub. No gallop. Pulmonary: Effort: Pulmonary effort is normal. No accessory muscle usage or respiratory distress. Breath sounds: Normal breath sounds. No decreased breath sounds, wheezing, rhonchi or rales. Chest: Chest wall: No tenderness. Abdominal: General: Bowel sounds are normal. There is no distension. Palpations: Abdomen is soft. Tenderness: There is no abdominal tenderness. Musculoskeletal: General: No tenderness. Normal range of motion. Cervical back: Normal range of motion and neck supple. Right lower leg: No edema. Left lower leg: No edema. Skin: General: Skin is warm and dry. Coloration: Skin is not pale. Findings: No erythema or rash. Nails: There is no clubbing. Neurological: General: No focal deficit present. Mental Status: She is alert and oriented to person, place, and time. Motor: No abnormal muscle tone. Coordination: Coordination normal. Deep Tendon Reflexes: Reflexes are normal and symmetric. Psychiatric: Attention and Perception: Attention and perception normal. Mood and Affect: Mood normal. Speech: Speech normal. Behavior: Behavior normal. Behavior is cooperative. Thought Content: Thought content normal. Cognition and Memory: Cognition and memory normal. Judgment: Judgment normal. Assessment and Plan ASSESSMENT/PLAN: 1. Wellness examination - ICD9: V70.0, ICD10: Z00.00 (primary diagnosis) - Counseled on healthy diet and regular exercise - Calcium intake with supplements or by diet of 1000 mg/day for under 50, 6148-4264 mg/day for 50+ - Mammogram ordered - exam recommended once yearly - Depression screening tool completed and reviewed with patient. Based on score and interview, patient is already diagnosed with depression and recommended continuing current plan of care. - Follow up for annual exam in one year 2. Depressive disorder - ICD9: 311, ICD10: F32.A - Chronic, stable continue current medications - BUPROPION HCL SR 150 MG TABLET,12 HR SUSTAINED-RELEASE - CITALOPRAM 40 MG TABLET 3. Heartburn - ICD9: 787.1, ICD10: R12 - Chronic stable. - LANSOPRAZOLE 30 MG CAPSULE,DELAYED RELEASE 4. Anxiety - ICD9: 300.00, ICD10: F41.9 - Chronic stable, continue medications as ordered - HYDROXYZINE HCL 25 MG TABLET 5. Screening for lipid disorders - ICD9: V77.91, ICD10: Z13.220 - LIPID PANEL BASIC 6. Screening, anemia, deficiency, iron - ICD9: V78.0, ICD10: Z13.0 - CBC 7. Screening for thyroid disorder - ICD9: V77.0, ICD10: Z13.29 - TSH BLD 8. Encounter for screening for diabetes mellitus - ICD9: V77.1, ICD10: Z13.1 - COMP METABOLIC PANEL 9. Vitamin D deficiency - ICD9: 268.9, ICD10: E55.9 - VITAMIN D 25 HYDROXY 10. Screening for HIV (human immunodeficiency virus) - ICD9: V73.89, ICD10: Z11.4 - HIV 1 2 COMBO(AG/AB),WITH REFLEX TO DIFFERENTIATION 11. Encounter for hepatitis C screening test for low risk patient - ICD9: V73.89, ICD10: Z11.59 - HEP C AB IA W/CONF SCRN Cortez Pinedo APRN.[employer] ATTENDANT documented in this encounter [facility] 10-04-2021 Miscellaneous Notes Last OV 05/24/21 Apt 10/11/21 Labs 12/15/19 Pharmacy calls in requesting the following refill(s): Requested Prescriptions Pending Prescriptions Disp Refills buPROPion SR (ZYBAN SR; WELLBUTRIN SR) 150 mg 12 hr tablet 90 tablet 0 Sig: Take 1 tablet by mouth twice daily. lansoprazole (PREVACID) 30 mg capsule 90 capsule 0 Sig: Take 1 capsule by mouth once daily. Ilya Borrero MA documented in this encounter [facility] 09-22-2021 Miscellaneous Notes Patient requesting refills: Last office visit 05/24/2021. Last refill bupropion last filled 07/25/2021 hydroxyzine last filled 05/14/2021 nov 10/02/2021 Pending Prescriptions Disp Refills HYDROXYZINE HCL 25 MG TABLET 56 tablet 2 Sig: Take 1 tablet by mouth every 6 hours as needed (for itching and anxiety). ARLEEN: No BUPROPION HCL SR 150 MG TABLET,12 HR SUSTAINED-RELEASE 90 tablet 0 Sig: Take 1 tablet by mouth twice daily. ARLEEN: No Please review and advise. Jeanette Bowen MA documented in this encounter [facility] 07-25-2021 Miscellaneous Notes Pharamcy requesting refills as follows: Last Office Visit 05/24/21 nov 10/02/21. Last Refill 06/22/21. Pending Prescriptions Disp Refills BUPROPION HCL SR 150 MG TABLET,12 HR SUSTAINED-RELEASE 90 tablet 0 Sig: TAKE 1 TABLET BY MOUTH TWICE DAILY ARLEEN: Yes Please review and advise. Falguni Tyler MA documented in this encounter [facility] 05-25-2021 History of Presen t illness Narrative Images from the original note were not included. Therapy Cancellation/No-show Note Date: 05/25/2021 Patient Name: Tresa Garay : 1970 Referring Practitioner: Maricel Porter Diagnosis: Strain of muscle, fascia and tendon of right hip, strain of unspecified muscles, fascia and tendons at thigh level, right thigh, Sprain of ligaments of lumbar spine, subsequent encounter, Sprain of sacroiliac joint, Visit Information: PT Visit Information Onset Date: 08/12/20 PT Insurance Information: [facility] claim # [id number] Total # of Visits to Date: 10 No Show: 1 Canceled Appointment: 3 Progress Note Counter: 12/06- cx 05/25/21 For today's appointment patient: [x] Cancelled [] Rescheduled appointment [] No-show [] Called pt to remind of next appointment Reason given by patient: [x] Patient ill [] Conflicting appointment [] No transportation [] Conflict with work [] No reason given [x] Other: Pt has COVID [] Pt has future appointments scheduled, no follow up needed [] Pt requests to be on hold. Reason: If > 2 weeks please discuss with therapist. [] Therapist to call pt for follow up Comments: Contacted pt Re: [facility] expiration date and plan for D/C this date secondary to doing well in regards to pain and functionality. Pt agreeable to D/C from PT at this time to cont indep with HEP as able. Signature: documented in this encounter [employer] Phone: 05-24-2021 Note HNO ID: [id number] Author: Katerin Simmons MD Service: ? Author Type: Physician Type: Progress Notes Filed: 05/24/2021 3:09 PM Note Text: This note was created using [employer]. Subjective Tresa Garay is a 51 year old female. The patient is here for an acute visit. She normally sees Cortez Pinedo CNP. The patient has concerns about cough and congestion she reports her symptoms started about a week ago. The patient reports she is having sinus pain and pressure. She states she is bringing up thick yellow mucous. She is also having an associated headache. She reports her symptoms started over a week ago. She was on clindamycin after she had a tooth removed 2 weeks ago. She doesn't know what dose she was on, but took it 4 times daily for 7 days. She hasn't had any fevers. She reports she has been taking sudafed. She has also been taking tylenol and motrin for her tooth pain. She hasn't been around any sick contacts to her knowledge. She has been vaccinated including her booster against COVID. She reports her cough tends to be worse with laying down. She states she felt short of breath this morning and on her way to the office this afternoon. She is a former smoker. Symptoms include: Fever (=100.4F): No or Chills: Yes Cough: Yes Shortness of breath: Yes or Difficulty breathing: No Fatigue: Yes Muscle aches: No Headache: Yes New loss of smell or taste: Yes, relates it to her congestion Sore throat: Yes Nasal congestion: Yes or Rhinorrhea: Yes Nausea: No or Vomiting: No Diarrhea: No OTC meds/remedies that patient has tried: acetaminophen, NSAIDs and pseudoephedrine. High risk category assessment No high risk factors Exposures: Sick contacts? No Family or close contacts with confirmed/probable COVID-19 in last 14 days? No The history is provided by the patient. Sinus Problem This is a new problem. The current episode started in the past 7 days. The problem occurs constantly. Associated symptoms include chills, congestion, coughing, fatigue, headaches and a sore throat. Pertinent negatives include no chest pain, fever, myalgias, nausea, rash or vomiting. ALLERGIES Allergen Reactions - Bactrim [Sulfametho* Diarrhea, Vomiting - Ciprofloxacin In 5 * Itching, Other: See Comments Redness as well Itching and redness noted on arm and IV site after a small dose given for per-op antibiotic. Pt states, I did not know I was allergic to that. Current Outpatient Medications Medication Sig Dispense Refill - hydrOXYzine HCl (ATARAX) 25 mg tablet Take 1 tablet by mouth every 6 hours as needed (for itching and anxiety). 56 tablet 2 - citalopram (CELEXA) 40 mg tablet TAKE 1 TABLET DAILY 90 tablet 1 - buPROPion SR (WELLBUTRIN SR) 150 mg 12 hr tablet Take 1 tablet by mouth twice daily. 60 tablet 2 - lansoprazole (PREVACID) 30 mg capsule Take 1 capsule by mouth once daily. 30 capsule 1 - fluticasone (FLONASE ALLERGY RELIEF) 50 mcg/actuation nasal spray Use 1 Currie in each nostril once daily. 15 mL 1 - Melatonin 5 mg tab Take 5 mg by mouth daily at bedtime. No current facility-administered medications for this visit. ACTIVE PROBLEM LIST Upj (Ureteropelvic Junction) Obstruction Depressive Disorder History of Kidney Stones Pulmonary Nodules Social History Tobacco Use - Smoking status: Former Smoker Packs/day: 0.50 Years: 25.00 Pack years: 12.50 Types: Cigarettes Quit date: 01/23/2015 Years since quittin.3 - Smokeless tobacco: Never Used - Tobacco comment: Vapor Cigarette, quit cigarettes 12/2015. Vaping Use - Vaping Use: Some days Substance Use Topics - Alcohol use: Not Currently Alcohol/week: 0.0 standard drinks Comment: occ - Drug use: No Family History Problem Relation Age of Onset - Hypertension Mother - Asthma Mother - other (unknown) Father Reviewed past medical and surgical history. Review of Systems Constitutional: Positive for chills and fatigue. Negative for fever. HENT: Positive for congestion, ear pain (pressure sensation), rhinorrhea, sinus pressure, sinus pain and sore throat. Negative for ear discharge. Respiratory: Positive for cough, chest tightness and shortness of breath. Cardiovascular: Negative for chest pain. Gastrointestinal: Negative for diarrhea, nausea and vomiting. Musculoskeletal: Negative for myalgias. Skin: Negative for rash. Neurological: Positive for light-headedness and headaches. Negative for dizziness and syncope. Objective BP 110/70 (BP Site: Right Arm, BP Position: Sitting, BP Cuff Size: Regular Adult) Pulse 75 Temp 36.8 ?C (98.3 ?F) (Oral) Resp 18 Ht 162.6 cm (5' 4 ) Wt 77.1 kg (170 lb) LMP 03/03/2013 SpO2 99% BMI 29.18 kg/m? Physical Exam Vitals and nursing note reviewed. Constitutional: General: She is not in acute distress. Appearance: She is not diaphoretic. HENT: Head: Normocephalic and atraumatic. Right Ear: Tympanic membrane n (more content not included)... [facility] 05-24-2021 Instructions Katerin Simmons MD - 05/24/2021 2:55 PM EDT Call if symptoms persist or worsen. Take home covid test to rule that out. Acute recurrent pansinusitis (primary encounter diagnosis) You have been diagnosed with an illness caused by a virus. Antibiotics do not cure viral infections. If given when not needed, antibiotics can be harmful. The treatments described below will help you feel better while your body's own defenses are fighting the virus. General Instructions: Drink extra water and juice. Use a cool mist vaporizer or saline nasal spray to relieve congestion. For Sore throats, use ice chips or sore throat spray; lozenges for older children and adults. Specific Medications: Fever, aches, ear pain: tylenol and ibuprofen Use medicines according to the package instructions or as directed by your healthcare provider. Stop the medication when the symptoms get better. Return if symptoms worsen or fail to improve. documented in this encounter [facility] 05-24-2021 History of Presen t illness Narrative This note was created using [employer]. Wally Tresafish Garay is a 51 year old female. The patient is here for an acute visit. She normally sees Cortez Pinedo CNP. The patient has concerns about cough and congestion she reports her symptoms started about a week ago. The patient reports she is having sinus pain and pressure. She states she is bringing up thick yellow mucous. She is also having an associated headache. She reports her symptoms started over a week ago. She was on clindamycin after she had a tooth removed 2 weeks ago. She doesn't know what dose she was on, but took it 4 times daily for 7 days. She hasn't had any fevers. She reports she has been taking sudafed. She has also been taking tylenol and motrin for her tooth pain. She hasn't been around any sick contacts to her knowledge. She has been vaccinated including her booster against COVID. She reports her cough tends to be worse with laying down. She states she felt short of breath this morning and on her way to the office this afternoon. She is a former smoker. Symptoms include: Fever (=100.4F): No or Chills: Yes Cough: Yes Shortness of breath: Yes or Difficulty breathing: No Fatigue: Yes Muscle aches: No Headache: Yes New loss of smell or taste: Yes, relates it to her congestion Sore throat: Yes Nasal congestion: Yes or Rhinorrhea: Yes Nausea: No or Vomiting: No Diarrhea: No OTC meds/remedies that patient has tried: acetaminophen, NSAIDs and pseudoephedrine. High risk category assessment No high risk factors Exposures: Sick contacts? No Family or close contacts with confirmed/probable COVID-19 in last 14 days? No The history is provided by the patient. Sinus Problem This is a new problem. The current episode started in the past 7 days. The problem occurs constantly. Associated symptoms include chills, congestion, coughing, fatigue, headaches and a sore throat. Pertinent negatives include no chest pain, fever, myalgias, nausea, rash or vomiting. ALLERGIES Allergen Reactions Bactrim [Sulfametho* Diarrhea, Vomiting Ciprofloxacin In 5 * Itching, Other: See Comments Redness as well Itching and redness noted on arm and IV site after a small dose given for per-op antibiotic. Pt states, I did not know I was allergic to that. Current Outpatient Medications Medication Sig Dispense Refill hydrOXYzine HCl (ATARAX) 25 mg tablet Take 1 tablet by mouth every 6 hours as needed (for itching and anxiety). 56 tablet 2 citalopram (CELEXA) 40 mg tablet TAKE 1 TABLET DAILY 90 tablet 1 buPROPion SR (WELLBUTRIN SR) 150 mg 12 hr tablet Take 1 tablet by mouth twice daily. 60 tablet 2 lansoprazole (PREVACID) 30 mg capsule Take 1 capsule by mouth once daily. 30 capsule 1 fluticasone (FLONASE ALLERGY RELIEF) 50 mcg/actuation nasal spray Use 1 Currie in each nostril once daily. 15 mL 1 Melatonin 5 mg tab Take 5 mg by mouth daily at bedtime. No current facility-administered medications for this visit. ACTIVE PROBLEM LIST Upj (Ureteropelvic Junction) Obstruction Depressive Disorder History of Kidney Stones [facility] Social History Tobacco Use Smoking status: Former Smoker Packs/day: 0.50 Years: 25.00 Pack years: 12.50 Types: Cigarettes Quit date: 01/23/2015 Years since quittin.3 Smokeless tobacco: Never Used Tobacco comment: Vapor Cigarette, quit cigarettes 12/2015. Vaping Use Vaping Use: Some days Substance Use Topics Alcohol use: Not Currently Alcohol/week: 0.0 standard drinks Comment: occ Drug use: No Family History Problem Relation Age of Onset Hypertension Mother Asthma Mother other (unknown) Father Reviewed past medical and surgical history. Review of Systems Constitutional: Positive for chills and fatigue. Negative for fever. HENT: Positive for congestion, ear pain (pressure sensation), rhinorrhea, sinus pressure, sinus pain and sore throat. Negative for ear discharge. Respiratory: Positive for cough, chest tightness and shortness of breath. Cardiovascular: Negative for chest pain. Gastrointestinal: Negative for diarrhea, nausea and vomiting. Musculoskeletal: Negative for myalgias. Skin: Negative for rash. Neurological: Positive for light-headedness and headaches. Negative for dizziness and syncope. Objective BP 110/70 (BP Site: Right Arm, BP Position: Sitting, BP Cuff Size: Regular Adult) Pulse 75 Temp 36.8 C (98.3 F) (Oral) Resp 18 Ht 162.6 cm (5' 4 ) Wt 77.1 kg (170 lb) LMP 03/03/2013 SpO2 99% BMI 29.18 kg/m Physical Exam Vitals and nursing note reviewed. Constitutional: General: She is not in acute distress. Appearance: She is not diaphoretic. HENT: Head: Normocephalic and atraumatic. Right Ear: Tympanic membrane normal. Left Ear: Tympanic membrane normal. Ears: Comments: Left ear canal is slightly inflamed Nose: No mucosal edema or rhinorrhea. Right Sinus: Maxillary sinus tenderness and frontal sinus tenderness present. Left Sinus: Maxillary sinus tenderness and frontal sinus tenderness present. Mouth/Throat: Mouth: Mucous membranes are moist. Pharynx: Oropharynx is clear. Posterior oropharyngeal erythema present. No oropharyngeal exudate. Tonsils: No tonsillar exudate. Eyes: Conjunctiva/sclera: Conjunctivae normal. Pupils: Pupils are equal, round, and reactive to light. Cardiovascular: Rate and Rhythm: Normal rate and regular rhythm. Heart sounds: Normal heart sounds. No murmur heard. Pulmonary: Effort: Pulmonary effort is normal. No respiratory distress. Breath sounds: Normal breath sounds. No decreased breath sounds or wheezing. Abdominal: General: Bowel sounds are normal. There is no distension. Palpations: Abdomen is soft. Tenderness: There is no abdominal tenderness. Lymphadenopathy: Head: Right side of head: No submental, submandibular, tonsillar, preauricular or posterior auricular adenopathy. Left side of head: No submental, submandibular, tonsillar, preauricular or posterior auricular adenopathy. Cervical: No cervical adenopathy. Comments: No adenopathy, but patient has tenderness to palpation over tonsillar lymph nodes Skin: General: Skin is warm and dry. Neurological: Mental Status: She is alert and oriented to person, place, and time. Psychiatric: Mood and Affect: Mood normal. Behavior: Behavior is cooperative. Assessment and Plan 1. Acute recurrent pansinusitis - ICD9: 461.8, ICD10: J01.41 (primary diagnosis) - Supportive care with plenty of fluids, rest, and analgesia prn. - Follow up in 5 days if symptoms persist or worsen. - PREDNISONE 20 MG TABLET The patient has concerns about cough and congestion. Exam as above. Patient's vitals are unremarkable and she is non-toxic appearing. She completed a course of clindamycin 3 days ago which should have covered for any bacterial illness. At this time, I do not feel she needs further antibiotics. Since she has tried OTC medications and feels like she is getting worse, will provide her a short course of prednisone. She was instructed to call if her symptoms persist or worsen and she agreed. She may continue using her flonase, but was cautioned not to take sudafed while also taking prednisone. She was instructed that she may take an OTC antihistamine like zyrtec, claritin or roberto carlos and she was in agreement. Due to the patient's symptoms, I also did recommend doing COVID testing to rule that out. She voiced that she had a test at home and would complete that. 2. URI, acute - ICD9: 465.9, ICD10: J06.9 - Discussed viral etiology and rationale for treatment. - Symptomatic treatment with prn analgesia - Supportive care with fluids and rest As above 3. Encounter for screening for COVID-19 - ICD9: V73.89, ICD10: Z11.52 As above The patient is here for an acute visit. Plan as above. Medications reviewed with the patient. She was instructed to call with any concerns or questions and she was in agreement. Return if symptoms worsen or fail to improve. Katerin Simmons MD I spent a total of 32 minutes on the date of the service which included preparing to see the patient, [id number] patient care, completing clinical documentation and obtaining and/or reviewing separately obtained history. documented in this encounter [facility] 05-23-2021 History of Presen t illness Narrative Images from the original note were not included. Therapy Cancellation/No-show Note Date: 05/23/2021 Patient Name: Tresa Garay : 1970 Referring Practitioner: Maricel Porter Diagnosis: Strain of muscle, fascia and tendon of right hip, strain of unspecified muscles, fascia and tendons at thigh level, right thigh, Sprain of ligaments of lumbar spine, subsequent encounter, Sprain of sacroiliac joint, Visit Information: PT Visit Information Onset Date: 08/12/20 PT Insurance Information: [facility] claim # [id number] Total # of Visits to Date: 10 Plan of Care/Certification Expiration Date: 05/26/21 No Show: 1 Canceled Appointment: 2 Progress Note Counter: 01/06- NS 05/23/21 For today's appointment patient: [] Cancelled [] Rescheduled appointment [x] No-show [x] Called pt to remind of next appointment- left VM Reason given by patient: [] Patient ill [] Conflicting appointment [] No transportation [] Conflict with work [] No reason given [] Other: [] Pt has future appointments scheduled, no follow up needed [] Pt requests to be on hold. Reason: If > 2 weeks please discuss with therapist. [] Therapist to call pt for follow up Comments: Signature: documented in this encounter [facility] Work Phone: 05-09-2021 History of Presen t illness Narrative [facility] Outpatient Physical Therapy Treatment Note Date: 05/09/2021 Patient: Tresa Garay : 1970 Referring Practitioner: Maricel Porter Diagnosis: Strain of muscle, fascia and tendon of right hip, strain of unspecified muscles, fascia and tendons at thigh level, right thigh, Sprain of ligaments of lumbar spine, subsequent encounter, Sprain of sacroiliac joint, Treatment Diagnosis: LBP, R hip pain, decreased lumbar AROM, decreased postural awareness, decreased R hip and core strength, decreased R SLS stability, (+) B elys, thoracolumbar hypomobility, and significant tightness throughout B thoracolumbar paraspinals Visit Information: PT Visit Information Onset Date: 08/12/20 PT Insurance Information: [facility] claim # [id number] Total # of Visits to Date: 9 Plan of Care/Certification Expiration Date: 05/12/21 No Show: 0 Canceled Appointment: 2 Progress Note Counter: 11/06 (PN due 05/12/21) Subjective: Pt reports her groin keeps bothering her, especially w/ getting in/out of the car. Pt states she started to notice it more after last visit and thinks the palloff press may have irritated it. Comments: RTD 05/29/21? HEP Compliance: [x] Good [] Fair [] Poor [] Reports not doing due to: Vital Signs Patient Currently in Pain: Yes Pain Screening Patient Currently in Pain: Yes Pain Assessment Pain Assessment: 0-10 Pain Level: 3 Pain Type: Chronic pain Pain Location: Groin Pain Orientation: Right;Anterior Pain Descriptors: Sharp OBJECTIVE: Exercises Exercise 4: prone press ups 2 x10 Exercise 5: Prone Hip Ext with knee bent x 10 Exercise 6: LTR 5s x 10 Exercise 8: S/L open book rotation 10S x 5 Exercise 11: modified yury pose/rocking with limited mobility with static cups 10 x5 Exercise 12: quadruped cat/camel 5s hold x 10 ea. w/ static cups Exercise 13: Single Leg Fall outs x 15 - held d/t increasing pain Exercise 14: Lower AB Cruch 1.0 KG ball x12, Cliff UE reach with TA 4# ball x 12 Exercise 15: bridge isometrics 5''x10 Exercise 16: Paloff Press YTB 5 x 10 - YTB vs RTB and instructed pt to have wider MERCEDES w/ slight improved tolerance Exercise 17: T-band Rows, Lat Pulls with TA Iso Red x 12-15 Exercise 18: Standing Hip Ext / ABD x 15 Cliff. Strength: [x] NT [] MMT completed: ROM: [x] NT [] ROM measurements: Manual: Manual therapy Soft Tissue Mobalization: gentle gliding technique w/ cups to b/l lumbar paraspinals followed by 6 static cups to b/l lumbar paraspinals w/ dynamic stretching (see ex section) x15 mins total Other: Avoided area of abrasion during cupping today to allow for tissue healing. *Indicates exercise, modality, or manual techniques to be initiated when appropriate Assessment: Body structures, Functions, Activity limitations: Decreased functional mobility ,Decreased ADL status,Decreased ROM,Decreased strength,Increased pain,Decreased posture,Decreased balance,Decreased high-level IADLs Assessment: Trialed pallof press w/ YTB vs RTB and a wider MERCEDES w/ some improvement as pt stating it's more tolerable now. Also held bent knee fall outs as those are irritating R groin. Pt reports difficulty w/ prone hip ext, though able to complete. Also trialed gliding technique w/ cups this date w/ good tolerance nd pt stating that feels really good. Treatment Diagnosis: LBP, R hip pain, decreased lumbar AROM, decreased postural awareness, decreased R hip and core strength, decreased R SLS stability, (+) B elys, thoracolumbar hypomobility, and significant tightness throughout B thoracolumbar paraspinals Prognosis: Good Goals: Short term goals Time Frame for Short term goals: 2-3 weeks Short term goal 1: The pt will demonstrate improved midline postural awareness requiring <25% VC's with exercises extermination supervisor goals Time Frame for extermination supervisor goals : 4-6 weeks care home goal 1: The pt will have a increase in LEFS score >/=60/80 points in order to increase functional activity tolerance extermination supervisor goal 2: The pt will demo improved R LE strength >/= 4+/5 and core strength >/=fair in order to stand and ambulate prolonged periods with decreased pain/limitations at PLOF extermination supervisor goal 3: The pt will be indep/compliant with HEP in order to self manage symptoms upon D/C extermination supervisor goal 4: The pt will demo improved lumbar AROM >/=75% ea plane in order to increase ease with household 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 Action: [] NA [x] Perform HEP [] Meds as prescribed [] Modalities as prescribed [] Call Physician Frequency/Duration: Plan Times per week: 2 Plan weeks: 4-6 Current Treatment Recommendations: Strengthening,ROM,Balance Training,Neuromuscular Re-education,Manual Therapy - Soft Tissue Mobilization,Patient/Caregiver Education & Training,Manual Therapy - Joint Manipulation,Home Exercise Program,Integrated Dry Needling,Modalities,Pain Management,Positioning Pt to continue current HEP. See objective section for any therapeutic exercise changes, additions or modifications this date. PT Individual Minutes Time In: 1114 Time Out: 1202 Minutes: 48 Timed Code Treatment Minutes: 48 Minutes Procedure Minutes:0 Timed Activity Minutes Units Ther Ex 33 2 Manual 15 1 Signature: documented in this encounter [facility] Work Phone: 05-04-2021 History of Presen t illness Narrative [facility] Outpatient Physical Therapy Treatment Note Date: 05/04/2021 Patient: Tresa Garay : 1970 Referring Practitioner: Maricel Porter Diagnosis: Strain of muscle, fascia and tendon of right hip, strain of unspecified muscles, fascia and tendons at thigh level, right thigh, Sprain of ligaments of lumbar spine, subsequent encounter, Sprain of sacroiliac joint, Treatment Diagnosis: LBP, R hip pain, decreased lumbar AROM, decreased postural awareness, decreased R hip and core strength, decreased R SLS stability, (+) B elys, thoracolumbar hypomobility, and significant tightness throughout B thoracolumbar paraspinals Visit Information: PT Visit Information Onset Date: 08/12/20 PT Insurance Information: [facility] claim # [id number] Total # of Visits to Date: 8 Plan of Care/Certification Expiration Date: 05/12/21 No Show: 0 Canceled Appointment: 2 Progress Note Counter: 10/06 (PN due 05/12/21) Subjective: Pt reports soreness in back from the cupping I guess . Pt has what looks to an abrasion on Left side of thoraics paraspinals. It could also be from my dog jumping up on me Comments: RTD 05/29/21? HEP Compliance: [x] Good [] Fair [] Poor [] Reports not doing due to: Vital Signs Patient Currently in Pain: Denies Pain Screening Patient Currently in Pain: Denies OBJECTIVE: Exercises Exercise 4: prone press ups 2 x10 Exercise 5: Prone Hip Ext with knee bent x 10 Exercise 6: LTR 5s x 10 Exercise 8: S/L open book rotation 10S x 5 Exercise 11: modified yury pose/rocking with limited mobility with static cups 10 x5 Exercise 12: quadruped cat/camel 5s hold x 10 ea. w/ static cups Exercise 13: Single Leg Fall outs x 15 Exercise 14: Lower AB Cruch 1.0 KG ball x10, Cliff UE reach with TA 4# ball x 10 Exercise 16: Paloff Press RTB 5 x 10 Exercise 17: T-band Rows, Lat Pulls with TA Iso Red x 12-15 Exercise 18: Standing Hip Ext / ABD x 15 Cliff. Strength: [x] NT [] MMT completed: ROM: [x] NT [] ROM measurements: Manual: Manual therapy Soft Tissue Mobalization: STM of Right piriformis with tennis ball , thoracolumbar parapsinals; MFD with cupping x6 cups ea. Cliff Lumbar parapsinals with x4 min static hold with moderate pressure in order to decrease muscular tension and assist with mobiity; dynamic cupping w/ cat/camel and yury pose (see ex section); 15 min total manual Other: Avoided area of abrasion during cupping today to allow for tissue healing. Assessment: Body structures, Functions, Activity limitations: Decreased functional mobility ,Decreased ADL status,Decreased ROM,Decreased strength,Increased pain,Decreased posture,Decreased balance,Decreased high-level IADLs Assessment: Correction of proper form and technique with Palloff pressed as pt demo active rotation with T-band, provided visual feed back of correct exercise. Pt with point tenderness with moderate tenderness of Right piriformis with STM and TPR performed to reduce tissue tension. . Treatment Diagnosis: LBP, R hip pain, decreased lumbar AROM, decreased postural awareness, decreased R hip and core strength, decreased R SLS stability, (+) B elys, thoracolumbar hypomobility, and significant tightness throughout B thoracolumbar paraspinals Goals: Short term goals Time Frame for Short term goals: 2-3 weeks Short term goal 1: The pt will demonstrate improved midline postural awareness requiring <25% VC's with exercises care home goals Time Frame for extermination supervisor goals : 4-6 weeks extermination supervisor goal 1: The pt will have a increase in LEFS score >/=60/80 points in order to increase functional activity tolerance extermination supervisor goal 2: The pt will demo improved R LE strength >/= 4+/5 and core strength >/=fair in order to stand and ambulate prolonged periods with decreased pain/limitations at PLOF extermination supervisor goal 3: The pt will be indep/compliant with HEP in order to self manage symptoms upon D/C care home goal 4: The pt will demo improved lumbar AROM >/=75% ea plane in order to increase 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 Action: [] NA [x] Perform HEP [] Meds as prescribed [] Modalities as prescribed [] Call Physician Frequency/Duration: Plan Times per week: 2 Plan weeks: 4-6 Current Treatment Recommendations: Strengthening,ROM,Balance Training,Neuromuscular Re-education,Manual Therapy - Soft Tissue Mobilization,Patient/Caregiver Education & Training,Manual Therapy - Joint Manipulation,Home Exercise Program,Integrated Dry Needling,Modalities,Pain Management,Positioning Pt to continue current HEP. See objective section for any therapeutic exercise changes, additions or modifications this date. PT Individual Minutes Time In: 1115 Time Out: 1202 Minutes: 47 Timed Code Treatment Minutes: 47 Minutes Procedure Minutes: 0 Modality Time In Time Out Total Minutes Units Ther ex ([id number]) [id number] 1493 32 2 Manual Therapy ([id number]) 1821 8708 15 1 Signature: [facility]: [facility]21 History of Presen t illness Narrative [facility] Outpatient Physical Therapy Treatment Note Date: 05/02/2021 Patient: Tresa Garay : 1970 Referring Practitioner: Maricel Porter Diagnosis: Strain of muscle, fascia and tendon of right hip, strain of unspecified muscles, fascia and tendons at thigh level, right thigh, Sprain of ligaments of lumbar spine, subsequent encounter, Sprain of sacroiliac joint, Treatment Diagnosis: LBP, R hip pain, decreased lumbar AROM, decreased postural awareness, decreased R hip and core strength, decreased R SLS stability, (+) B elys, thoracolumbar hypomobility, and significant tightness throughout B thoracolumbar paraspinals Visit Information: PT Visit Information Onset Date: 08/12/20 PT Insurance Information: [facility] claim # [id number] Total # of Visits to Date: 7 Plan of Care/Certification Expiration Date: 05/12/21 No Show: 0 Canceled Appointment: 2 Progress Note Counter: 09/05 (PN due 05/12/21) Subjective: Pt reports feeling 70% functional with contd difficulty performing repetitive bending, sweeping, squatting, and getting into/out of car. Pain conts to reach 8-9/10 at worst though is short lived and able to decrease with relaxation and sitting. Pt reports minimal soreness following LV though tolerable and loves the new exercises hes got me doing at home. Comments: RTD 05/29/21? HEP Compliance: [x] Good [] Fair [] Poor [] Reports not doing due to: Vital Signs Patient Currently in Pain: Denies Pain Screening Patient Currently in Pain: Denies OBJECTIVE: Exercises Exercise 4: prone press ups 2 x10 Exercise 6: LTR 5s x 10 Exercise 8: S/L open book rotation 5S x 10 Exercise 11: modified yury pose/rocking with limited mobility with static cups 10 x5 Exercise 12: quadruped cat/camel 5s hold x 10 ea. w/ static cups Exercise 13: Single Leg Fall outs x 15 Exercise 14: Lower AB Cruch x10, Cliff UE reach with TA 2# ball x 10 Exercise 15: Bridges 5 x 10- decreased lift emphasis on glute activation Exercise 16: Paloff Press RTB 5 x 10 Exercise 17: T-band Rows, Lat Pulls with TA Iso Red x 10 Exercise 18: Standing Hip Ext / ABD x 10 Cliff. Exercise 19: Box Lifts with focus on form and technique 15# box lift from 12 inch step. x5 Exercise 20: HEP: cont current Strength: [x] NT [] MMT completed: ROM: [] NT [x] ROM measurements: Spine Lumbar: flex, ext, R SB, B rot 75%, L SB 50% Manual: Manual therapy Soft Tissue Mobalization: thoracolumbar parapsinals; MFD with cupping x6 cups ea. Cliff Lumbar parapsinals with x4 min static hold with moderate pressure in order to decrease muscular tension and assist with mobiity; dynamic cupping w/ cat/camel and yury pose (see ex section); 10 min total manual *Indicates exercise, modality, or manual techniques to be initiated when appropriate Assessment: Body structures, Functions, Activity limitations: Decreased functional mobility ,Decreased ADL status,Decreased ROM,Decreased strength,Increased pain,Decreased posture,Decreased balance,Decreased high-level IADLs Assessment: Pt demos improving lumbar AROM in all planes with contd deficits and pain at end ranges especially with L SB being the greatest contd limitation. Difficulty, shakiness, and some pain with repetitive lifting technique therefroe decreased reps performed. Pt also required VC's for proper technique and form with lifting mechanics. Treatment Diagnosis: LBP, R hip pain, decreased lumbar AROM, decreased postural awareness, decreased R hip and core strength, decreased R SLS stability, (+) B elys, thoracolumbar hypomobility, and significant tightness throughout B thoracolumbar paraspinals Goals: Short term goals Time Frame for Short term goals: 2-3 weeks Short term goal 1: The pt will demonstrate improved midline postural awareness requiring <25% VC's with exercises extermination supervisor goals Time Frame for extermination supervisor goals : 4-6 weeks care home goal 1: The pt will have a increase in LEFS score >/=60/80 points in order to increase functional activity tolerance care home goal 2: The pt will demo improved R LE strength >/= 4+/5 and core strength >/=fair in order to stand and ambulate prolonged periods with decreased pain/limitations at PLOF extermination supervisor goal 3: The pt will be indep/compliant with HEP in order to self manage symptoms upon D/C extermination supervisor goal 4: The pt will demo improved lumbar AROM >/=75% ea plane in order to increase ease with household 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 Action: [] NA [x] Perform HEP [] Meds as prescribed [] Modalities as prescribed [] Call Physician Frequency/Duration: Plan Times per week: 2 Plan weeks: 4-6 Current Treatment Recommendations: Strengthening,ROM,Balance Training,Neuromuscular Re-education,Manual Therapy - Soft Tissue Mobilization,Patient/Caregiver Education & Training,Manual Therapy - Joint Manipulation,Home Exercise Program,Integrated Dry Needling,Modalities,Pain Management,Positioning Pt to continue current HEP. See objective section for any therapeutic exercise changes, additions or modifications this date. PT Individual Minutes Time In: 1105 Time Out: 1150 Minutes: 45 Timed Code Treatment Minutes: 45 Minutes Procedure Minutes:0 Modality Time In Time Out Total Minutes Units Ther ex ([id number]) 1105 1138 1128 1150 23 12 2 Manual Therapy ([id number]) 1128 1138 10 1 Signature: documented in this encounter [facility] Work Phone: 04-27-2021 History of Presen t illness Narrative [facility] Outpatient Physical Therapy Treatment Note Date: 04/27/2021 Patient: Tresa Garay : 1970 Referring Practitioner: Maricel Porter Diagnosis: Strain of muscle, fascia and tendon of right hip, strain of unspecified muscles, fascia and tendons at thigh level, right thigh, Sprain of ligaments of lumbar spine, subsequent encounter, Sprain of sacroiliac joint, Treatment Diagnosis: LBP, R hip pain, decreased lumbar AROM, decreased postural awareness, decreased R hip and core strength, decreased R SLS stability, (+) B elys, thoracolumbar hypomobility, and significant tightness throughout B thoracolumbar paraspinals Visit Information: PT Visit Information Onset Date: 08/12/20 PT Insurance Information: [facility] claim # [id number] Total # of Visits to Date: 6 Plan of Care/Certification Expiration Date: 05/12/21 No Show: 0 Canceled Appointment: 2 Progress Note Counter: 08/06 (PN due 05/12/21) Subjective: Pt denies any pain at this time. Minimal pain over the last several days, has not tried any stairs lately to know if that would be and issue or not HEP Compliance: [x] Good [] Fair [] Poor [] Reports not doing due to: OBJECTIVE: Exercises Exercise 2: PPT 5 x10 - pt reporting increased pain in back w/ improvement w/ dec ROM. Exercise 3: PKF 5 2 x10 Exercise 4: prone press ups 2 x10 Exercise 6: LTR 5s x 10 Exercise 8: S/L open book rotation 5S x 10 Exercise 10: DLS with TA Iso -Marching x 10 Exercise 12: quadruped cat/camel 5s hold x 10 ea. w/ static cups Exercise 13: Single Leg Fall outs x 10 Exercise 14: Lower AB Cruch x10, Cliff UE reach with TA 2# ball x 10 Exercise 15: Bridges 3 x 10 Limited Lift by pain levels Exercise 16: Paloff Press RTB 5 x 10 Exercise 17: T-band Rows, Lat Pulls with TA Iso Red x 10 Exercise 18: Standing Hip Ext / ABD x 10 Cliff. Exercise 19: Box Lifts with focus on form and technique 15# box lift from 12 inch step. Exercise 20: HEP: supine Marching, Bridges, Paloff press, Rows, Lat Pulls with Red Tband provided. Strength: [x] NT [] MMT completed: ROM: [] NT [] ROM measurements: Manual: Manual therapy Soft Tissue Mobalization: thoracolumbar parapsinals; MFD with cupping x6 cups ea. Cliff Lumbar parapsinals with x4 min static hold with moderate pressure in order to decrease muscular tension as assist with mobiity; dynamic cupping w/ cat/camel (see ex section) Assessment: Body structures, Functions, Activity limitations: Decreased functional mobility ,Decreased ADL status,Decreased ROM,Decreased strength,Increased pain,Decreased posture,Decreased balance,Decreased high-level IADLs Assessment: Progression of exercise program and HEP to include core and hip strengh to assist with ease of ADLS and work duties. VCs to correct form and technique with box lifts, mild pain reported in right hip while performing lifts from 12 inch height, avoid lifting from ground level due to pain levels. Treatment Diagnosis: LBP, R hip pain, decreased lumbar AROM, decreased postural awareness, decreased R hip and core strength, decreased R SLS stability, (+) B elys, thoracolumbar hypomobility, and significant tightness throughout B thoracolumbar paraspinals Goals: Short term goals Time Frame for Short term goals: 2-3 weeks Short term goal 1: The pt will demonstrate improved midline postural awareness requiring <25% VC's with exercises extermination supervisor goals Time Frame for care home goals : 4-6 weeks extermination supervisor goal 1: The pt will have a increase in LEFS score >/=60/80 points in order to increase functional activity tolerance care home goal 2: The pt will demo improved R LE strength >/= 4+/5 and core strength >/=fair in order to stand and ambulate prolonged periods with decreased pain/limitations at PLOF extermination supervisor goal 3: The pt will be indep/compliant with HEP in order to self manage symptoms upon D/C care home goal 4: The pt will demo improved lumbar AROM >/=75% ea plane in order to increase ease 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 POST-PAIN Pain Rating (0-10 pain scale): 3/10 Location and pain description same as pre-treatment unless indicated. Action: [] NA [x] Perform HEP [] Meds as prescribed [] Modalities as prescribed [] Call Physician Frequency/Duration: Plan Times per week: 2 Plan weeks: 4-6 Current Treatment Recommendations: Strengthening,ROM,Balance Training,Neuromuscular Re-education,Manual Therapy - Soft Tissue Mobilization,Patient/Caregiver Education & Training,Manual Therapy - Joint Manipulation,Home Exercise Program,Integrated Dry Needling,Modalities,Pain Management,Positioning Pt to continue current HEP. See objective section for any therapeutic exercise changes, additions or modifications this date. PT Individual Minutes Time In: 1107 Time Out: 1200 Minutes: 53 Timed Code Treatment Minutes: 53 Minutes Procedure Minutes:0 Modality Time In Time Out Total Minutes Units Ther ex ([id number]) [id number] 45 3 Manual Therapy ([id number]) 5476 [id number] 8 1 Signature: documented in this encounter [facility] Phone: 04-25-2021 History of Presen t illness Narrative Images from the original note were not included. Therapy Cancellation/No-show Note Date: 04/25/2021 Patient Name: Tresa Garay : 1970 Referring Practitioner: Maricel Porter Diagnosis: Strain of muscle, fascia and tendon of right hip, strain of unspecified muscles, fascia and tendons at thigh level, right thigh, Sprain of ligaments of lumbar spine, subsequent encounter, Sprain of sacroiliac joint, Visit Information: PT Visit Information Onset Date: 08/12/20 PT Insurance Information: [facility] claim # [id number] Total # of Visits to Date: 5 Plan of Care/Certification Expiration Date: 05/12/21 No Show: 0 Canceled Appointment: 2 Progress Note Counter: 07/06 (PN due 05/12/21)- cx 04/25/21 For today's appointment patient: [x] Cancelled [] Rescheduled appointment [] No-show [] Called pt to remind of next appointment Reason given by patient: [] Patient ill [x] Conflicting appointment- appt with [facility] [] No transportation [] Conflict with work [] No reason given [] Other: [x] Pt has future appointments scheduled, no follow up needed [] Pt requests to be on hold. Reason: If > 2 weeks please discuss with therapist. [] Therapist to call pt for follow up Comments: Signature: documented in this encounter [facility] Work Phone: 04-11-2021 History of Presen t illness Narrative [facility] Outpatient Physical Therapy Treatment Note Date: 04/11/2021 Patient: Tresa Garay : 1970 Referring Practitioner: Maricel Porter Diagnosis: Strain of muscle, fascia and tendon of right hip, strain of unspecified muscles, fascia and tendons at thigh level, right thigh, Sprain of ligaments of lumbar spine, subsequent encounter, Sprain of sacroiliac joint, Treatment Diagnosis: LBP, R hip pain, decreased lumbar AROM, decreased postural awareness, decreased R hip and core strength, decreased R SLS stability, (+) B elys, thoracolumbar hypomobility, and significant tightness throughout B thoracolumbar paraspinals Visit Information: PT Visit Information Onset Date: 08/12/20 PT Insurance Information: [facility] claim # [id number] Total # of Visits to Date: 2 Plan of Care/Certification Expiration Date: 05/12/21 No Show: 0 Canceled Appointment: 0 Progress Note Counter: 04/08 (PN due 05/12/21) Subjective: Pt reports good compliance with HEP, mild burning sxs reported when performing SLR of Right LE. HEP Compliance: [x] Good [] Fair [] Poor [] Reports not doing due to: Vital Signs Patient Currently in Pain: Denies Pain Screening Patient Currently in Pain: Denies OBJECTIVE: Exercises Exercise 2: PPT 5 x10 Exercise 3: PKF 5 x10 Exercise 4: prone press ups x10- limited ROM Exercise 5: DKTC 15s x 5 Exercise 6: LTR 5s x 10 Exercise 12: quadruped cat/camel 5s hold x 10 ea. Strength: [x] NT [] MMT completed: ROM: [x] NT [] ROM measurements: Manual: Manual therapy Soft Tissue Mobalization: thoracolumbar parapsinals; MFD with cupping x2 cups Cliff Lumbar parapsinals, improved tolerance to manual following MHP Modalities: Modalities Moist heat: x10 MHP prior to manual therapy. *Indicates exercise, modality, or manual techniques to be initiated when appropriate Assessment: Body structures, Functions, Activity limitations: Decreased functional mobility ,Decreased ADL status,Decreased ROM,Decreased strength,Increased pain,Decreased posture,Decreased balance,Decreased high-level IADLs Assessment: Pt unable to tolerate manual therapy without heating tissue as pt is sensitive to palpation prior to heat and able to tolerate post heat, initiated cupping to assit with MFR with pt reporting good tolerance with minimal bruising today and decreased tension reported following manual therapy. Treatment Diagnosis: LBP, R hip pain, decreased lumbar AROM, decreased postural awareness, decreased R hip and core strength, decreased R SLS stability, (+) B elys, thoracolumbar hypomobility, and significant tightness throughout B thoracolumbar paraspinals Prognosis: Good Goals: Short term goals Time Frame for Short term goals: 2-3 weeks Short term goal 1: The pt will demonstrate improved midline postural awareness requiring <25% VC's with exercises care home goals Time Frame for extermination supervisor goals : 4-6 weeks care home goal 1: The pt will have a increase in LEFS score >/=60/80 points in order to increase functional activity tolerance care home goal 2: The pt will demo improved R LE strength >/= 4+/5 and core strength >/=fair in order to stand and ambulate prolonged periods with decreased pain/limitations at PLOF extermination supervisor goal 3: The pt will be indep/compliant with HEP in order to self manage symptoms upon D/C care home goal 4: The pt will demo improved lumbar AROM >/=75% ea plane in order to increase ease with household and work rleated duties including cleaning care home goal 5: The pt will demo improved R SLS >/=10 seconds to increase ease with perofrming stairs recciprocally safely with decreased pain Progress toward goals:on going POST-PAIN Pain Rating (0-10 pain scale): 3/10 Location and pain description same as pre-treatment unless indicated. Action: [] NA [x] Perform HEP [] Meds as prescribed [] Modalities as prescribed [] Call Physician Frequency/Duration: Plan Times per week: 2 Plan weeks: 4-6 Current Treatment Recommendations: Strengthening,ROM,Balance Training,Neuromuscular Re-education,Manual Therapy - Soft Tissue Mobilization,Patient/Caregiver Education & Training,Manual Therapy - Joint Manipulation,Home Exercise Program,Integrated Dry Needling,Modalities,Pain Management,Positioning Pt to continue current HEP. See objective section for any therapeutic exercise changes, additions or modifications this date. PT Individual Minutes Time In: 1035 Time Out: 1116 Minutes: 41 Timed Code Treatment Minutes: 31 Minutes Procedure Minutes:10 MHP Modality Time In Time Out Total Minutes Units Ther ex ([id number]) 1035 1056 21 1 Manual Therapy ([id number]) 1106 1116 10 1 Moist Hot Pack (16310) 1056 1106 10 0 Signature: documented in this encounter [facility] Phone: 04-04-2021 Note HNO ID: [id number] Author: Cortez Pinedo APRN.[employer]END[employer] Service: ? Author Type: Nurse Practitioner Type: Progress Notes Filed: 04/04/2021 1:36 PM Note Text: This note was created using Info Assembly[employer]. Subjective Tresa Garay is a 50 year old female here today for 4 wk follow up on depression, anxiety and heartburn. At last ov Wellbutrin was added for depression. She was to continue celexa and hydroxyzine for her anxiety. She also had episodes of CP prior to last ov and was seen in ER. Her ECG showed NSR and all other work up was negative. She was started on lansoprazole 30 mg for reflux as possible cause of her symptoms. She reports she feels much better. She reports pressure in chest/CP has resolved since starting lansoprazole. Reports her anxiety and depression are much improved since starting wellbutrin. No concerns or complaints today. Denies thoughts of suicide She is due for her COVID booster. ALLERGIES Allergen Reactions - Bactrim [Sulfametho* Diarrhea, Vomiting - Ciprofloxacin In 5 * Itching, Other: See Comments Redness as well Itching and redness noted on arm and IV site after a small dose given for per-op antibiotic. Pt states, I did not know I was allergic to that. Current Outpatient Medications Medication Sig Dispense Refill - buPROPion SR (WELLBUTRIN SR) 150 mg 12 hr tablet Take 1 tablet by mouth twice daily. 60 tablet 2 - hydrOXYzine HCl (ATARAX) 25 mg tablet Take 1 tablet by mouth every 6 hours as needed (for itching and anxiety). 56 tablet 2 - lansoprazole (PREVACID) 30 mg capsule Take 1 capsule by mouth once daily. 30 capsule 1 - fluticasone (FLONASE ALLERGY RELIEF) 50 mcg/actuation nasal spray Use 1 Currie in each nostril once daily. 15 mL 1 - citalopram (CELEXA) 40 mg tablet TAKE 1 TABLET DAILY 90 tablet 1 - Melatonin 5 mg tab Take 5 mg by mouth daily at bedtime. No current facility-administered medications for this visit. ACTIVE PROBLEM LIST Upj (Ureteropelvic Junction) Obstruction Depressive Disorder History of Kidney Stones Pulmonary Nodules PAST MEDICAL HISTORY Diagnosis Date - Chest pain Patient denied any cardiac problems - Depressive disorder - Dysmenorrhea - Heart murmur Patient denied - Hydronephrosis - Pelvic pain in female Female genital organ symptoms - Renal colic Unspecified renal colic - Smoker - TIA (transient ischemic attack) at 26; seen in ER and told it was a mini stroke. Had subsequent carotid US for a few years, and found to have no issues - Urinary tract infection 10/2012 - Uterine leiomyoma PAST SURGICAL HISTORY Procedure Laterality Date - APPENDECTOMY HX 2004 Laparoscopic - CYSTOSCOPY 11/26/12 right retrograde pyelogram - CYSTOURETHROSCOPY 12/26/2012 Cystoscopy/Stent Extraction Dr. Baron - OVARIAN CYSTECTOMY UNI/BI 1987 Laparoscopy - PAST SURGICAL HISTORY OF 01/07/2013 cystoscopy, ureteral JJ stent right - PLASTIC SURGERY NECK OR UTERUS, CERVICOPL 1987 Lx; DANDC, cysts on fallopian tube - TONSILLECTOMY HX 1974 - TOTAL ABDOM HYSTERECTOMY 03/2014 Social History Tobacco Use - Smoking status: Former Smoker Packs/day: 0.50 Years: 25.00 Pack years: 12.50 Types: Cigarettes Quit date: 01/23/2015 Years since quittin.2 - Smokeless tobacco: Never Used - Tobacco comment: Vapor Cigarette, quit cigarettes 12/2015. Vaping Use - Vaping Use: Some days Substance Use Topics - Alcohol use: Not Currently Alcohol/week: 0.0 standard drinks Comment: occ - Drug use: No Family History Problem Relation Age of Onset - Hypertension Mother - Asthma Mother - other (unknown) Father Review of Systems Constitutional: Negative for activity change, appetite change, chills, diaphoresis, fatigue and fever. Respiratory: Negative for cough, shortness of breath and wheezing. Cardiovascular: Negative for chest pain, palpitations and leg swelling. Gastrointestinal: Negative for abdominal pain, diarrhea, nausea and vomiting. Neurological: Negative for dizziness and headaches. Psychiatric/Behavioral: Positive for dysphoric mood and sleep disturbance. The patient is nervous/anxious. Improved control of anxiety and depression Takes melatonin nightly for sleep which is effective Objective 04/04/21 1257 BP: 112/60 BP Site: Right Arm BP Position: Sitting BP Cuff Size: Regular Adult Pulse: 82 Resp: 18 Temp: 36.7 ?C (98.1 ?F) TempSrc: Oral SpO2: 99% Weight: 77.5 kg (170 lb 12.8 oz) Height: 162.6 cm (5' 4 ) Physical Exam Vitals and nursing note reviewed. Constitutional: General: She is not in acute distress. Appearance: Normal appearance. She is not ill-appearing. HENT: Head: Normocephalic and atraumatic. Cardiovascular: Rate and Rhythm: Normal rate and regular rhythm. Pulses: Normal pulses. Heart sounds: Normal heart sounds. Pulmonary: Effort: Pulmonary effort is normal. No respiratory distress. Breath sounds: Normal breath sounds. No wh (more content not included)... [facility] 01-18-2021 History of Presen t illness Narrative [facility] Outpatient Physical Therapy Treatment Note Date: 01/18/2021 Patient: Tresa Garay : 1970 Referring Practitioner: Maricel Porter Diagnosis: Strain of muscle, fascia and tendon of right hip, strain of unspecified muscles, fascia and tendons at thigh level, right thigh Treatment Diagnosis: R hip pain, L hip pain, LBP, decreased B hip AROM, decreased lumbar AROM, decreased R hip and core strength, decreased and painful B SLS stability (+) B FADIR, and scour for groin pain, (+) R Fitzpatricks, and slump Visit Information: PT Visit Information Onset Date: 08/12/20 PT Insurance Information: [facility] claim # [id number] Total # of Visits to Date: 10 Plan of Care/Certification Expiration Date: 01/20/21 No Show: 0 Canceled Appointment: 0 Progress Note Counter: 12/02- Subjective: Pt reports sitting and standing off and on yesterday at work and reports that yesterday she started having burning down the leg and intermittent numbness in the right foot. Pt reports yesterday my pain was 100/10. Pt reports she's also starting to get intermittent pain on the left side. Comments: RTD 01/30/2021 HEP Compliance: [x] Good [] Fair [] Poor [] Reports not doing due to: Vital Signs Patient Currently in Pain: Yes Pain Screening Patient Currently in Pain: Yes Pain Assessment Pain Assessment: 0-10 Pain Level: 6 Pain Type: Chronic pain Pain Location: Back; Hip Pain Orientation: Right; Lower Pain Descriptors: Aching; Constant OBJECTIVE: Exercises Exercise 12: pt in prone for manual muscle testing and report position felt good trialed prone on elbows w/ increased N&Ting Strength: [] NT [x] MMT completed: Strength RLE Comment: did not test d/t increase in pain and pt unable to tolerate Strength LLE Comment: did not test d/t increase in pain and pt unable to tolerate Strength Other Other: poor core strength based off bed mobility/transfers d/t pain ROM: [] NT [x] ROM measurements: AROM RLE (degrees) RLE General AROM: Hip ER 26, IR 24, flex 88, abd 15, ext 5 (increase pain w/ all movement) AROM LLE (degrees) LLE General AROM: Hip ER 28, IR 38, flex 115, abd 32, ext 10 (pain at all end ranges) Spine Lumbar: flex 50% - increased rad sx's w/ flex, ext 50%, SB R 25%, L 25%, Rot B 25% Manual: Manual therapy Soft Tissue Mobalization: R piriformis, thoracolumbar paraspinals, R proximal ITB w/ tenis ball Other: objective measures, discussing goals, progress towards goals, contacting MD total manual 38 mins Modalities: Modalities Moist heat: x10 min to R hip and lumbar spine and lateral R hip in L S/L for post exertion pain control/mm relxation E-stim (parameters): IFC x10 min to R lumbar spine/Hip for pain control/mm relaxation with MHP *Indicates exercise, modality, or manual techniques to be initiated when appropriate Assessment: Body structures, Functions, Activity limitations: Decreased functional mobility , Decreased ADL status, Decreased ROM, Decreased strength, Decreased balance, Increased pain, Decreased high-level IADLs, Decreased posture Assessment: Pt demo's limited progress towards goals and is experiencing a recent increase in pain w/ burning, numbness, and tingling down RLE. Rad sx's this date are not relieved w/ either flex or ext positions. Pt also very tender to palpate over the R hip and low back area. Encouraged pt to contact MD after appt to inform of worsening/new onset of sx's and pt agreed. Treatment Diagnosis: R hip pain, L hip pain, LBP, decreased B hip AROM, decreased lumbar AROM, decreased R hip and core strength, decreased and painful B SLS stability (+) B FADIR, and scour for groin pain, (+) R Fitzpatricks, and slump Prognosis: Fair, Good Goals: Short term goals Time Frame for Short term goals: 2-3 weeks Short term goal 1: The pt will have decreased pain >/=50% in order to increase ease with ADL's care home goals Time Frame for extermination supervisor goals : 4-6 weeks care home goal 1: The pt will have a increase in LEFS score >/=50/80 points in order to increase functional activity tolerance care home goal 2: The pt will demo improved B hip and lumbar AROM >/=WNL's in order to increase ease with ADL's such as entering and exiting bathtub care home goal 3: The pt will be indep/compliant with HEP in order to self manage symptoms upon D/C extermination supervisor goal 4: The pt will demo improved R LE strength >/= 4+/5 and core strength >/=fair in order to safely ambulate with decreased pain/limitations extermination supervisor goal 5: The pt will demo improved B SLS >/=10 seconds to increase ease with ambulation Progress toward goals: see PN POST-PAIN Pain Rating (0-10 pain scale): I don't feel it right now, but by the time I get to the car I will /10 Location and pain description same as pre-treatment unless indicated. Action: [] NA [x] Perform HEP [] Meds as prescribed [] Modalities as prescribed [] Call Physician Frequency/Duration: Plan Times per week: 2 Plan weeks: 4-6 Current Treatment Recommendations: Strengthening, ROM, Balance Training, Neuromuscular Re-education, Manual Therapy - Soft Tissue Mobilization, Patient/Caregiver Education & Training, Manual Therapy - Joint Manipulation, Home Exercise Program, Integrated Dry Needling, Modalities, Pain Management Plan Comment: PN completed today requesting date ext for remaining 2 visits on POC. Pt however presenting today w/ worsening/new onset of sx's and encouraged to contact MD. Pt to continue current HEP. See objective section for any therapeutic exercise changes, additions or modifications this date. PT Individual Minutes Time In: 0848 Time Out: 0936 Minutes: 48 Timed Code Treatment Minutes: 38 Minutes Procedure Minutes:10 Modality Time In Time Out Total Minutes Units Manual Therapy ([id number]) [phone] 38 3 MHP ([id number]) 926 936 10 0 Estim unattended ([id number]) [phone] 10 1 Signature: documented in this encounter [facility] Work Phone: 01-11-2021 History of Presen t illness Narrative [facility] Outpatient Physical Therapy Treatment Note Date: 01/11/2021 Patient: Tresa Garay : 1970 Referring Practitioner: Maricel Porter Diagnosis: Strain of muscle, fascia and tendon of right hip, strain of unspecified muscles, fascia and tendons at thigh level, right thigh Treatment Diagnosis: R hip pain, L hip pain, LBP, decreased B hip AROM, decreased lumbar AROM, decreased R hip and core strength, decreased and painful B SLS stability (+) B FADIR, and scour for groin pain, (+) R Fitzpatricks, and slump Visit Information: PT Visit Information Onset Date: 08/12/20 PT Insurance Information: [facility] claim # [id number] Total # of Visits to Date: 8 Plan of Care/Certification Expiration Date: 01/20/21 No Show: 0 Canceled Appointment: 0 Progress Note Counter: 10/02- Subjective: Pt reports the MD is going to request a tens unit through [facility] and prescribed pt prednisone that pt is currently taking. Pt reports the MD will submit for an MRI after pt has completed therapy. Comments: RTD next week HEP Compliance: [x] Good [] Fair [] Poor [] Reports not doing due to: Vital Signs Patient Currently in Pain: Yes Pain Screening Patient Currently in Pain: Yes Pain Assessment Pain Assessment: 0-10 Pain Level: 3 (2-3) Pain Type: Chronic pain Pain Location: Back; Hip Pain Orientation: Right; Outer Pain Descriptors: Aching; Constant OBJECTIVE: Exercises Exercise 2: LTR 5 x10 Exercise 3: B HS stretch supine w/ strap 20 x3 Exercise 4: mod bethany stretch 30''x3 with light assist on R LE Exercise 5: supine TA marches x10- VC's for pain free range Exercise 6: Hip add w/ ball 5''x20, hip abd RTB 5''x15 Exercise 8: SKTC 10''x10 b/l; DKTC w/ LE's on pball 10''x10 b/l Exercise 9: clams x10 RLE; rev clams* Strength: [x] NT [] MMT completed: ROM: [x] NT [] ROM measurements: Manual: Manual therapy Soft Tissue Mobalization: R piriformis, thoracolumbar paraspinals, R proximal ITB w/ tenis ball x12 mins Modalities: Modalities Moist heat: x10 min to R hip and lumbar spine and lateral R hip in L S/L for post exertion pain control/mm relxation E-stim (parameters): IFC x10 min to R lumbar spine/Hip for pain control/mm relaxation with MHP *Indicates exercise, modality, or manual techniques to be initiated when appropriate Assessment: Body structures, Functions, Activity limitations: Decreased functional mobility , Decreased ADL status, Decreased ROM, Decreased strength, Decreased balance, Increased pain, Decreased high-level IADLs, Decreased posture Assessment: Pt reporting increased lateral R hip pain w/ LTR this date. Re-initated clams and added supine marches w/ emphasis on staying within a tolerable ROM. Pt cont's to report the most relief w/ estim/MHP Treatment Diagnosis: R hip pain, L hip pain, LBP, decreased B hip AROM, decreased lumbar AROM, decreased R hip and core strength, decreased and painful B SLS stability (+) B FADIR, and scour for groin pain, (+) R Fitzpatricks, and slump Prognosis: Fair, Good Goals: Short term goals Time Frame for Short term goals: 2-3 weeks Short term goal 1: The pt will have decreased pain >/=50% in order to increase ease with ADL's care home goals Time Frame for care home goals : 4-6 weeks care home goal 1: The pt will have a increase in LEFS score >/=50/80 points in order to increase functional activity tolerance extermination supervisor goal 2: The pt will demo improved B hip and lumbar AROM >/=WNL's in order to increase ease with ADL's such as entering and exiting bathtub care home goal 3: The pt will be indep/compliant with HEP in order to self manage symptoms upon D/C extermination supervisor goal 4: The pt will demo improved R LE strength >/= 4+/5 and core strength >/=fair in order to safely ambulate with decreased pain/limitations care home goal 5: The pt will demo improved B SLS >/=10 seconds to increase ease with ambulation Progress toward goals: increase strength, ROM, decrease pain POST-PAIN Pain Rating (0-10 pain scale): 0/10 Location and pain description same as pre-treatment unless indicated. Action: [] NA [x] Perform HEP [] Meds as prescribed [] Modalities as prescribed [] Call Physician Frequency/Duration: Plan Times per week: 2 Plan weeks: 4-6 Current Treatment Recommendations: Strengthening, ROM, Balance Training, Neuromuscular Re-education, Manual Therapy - Soft Tissue Mobilization, Patient/Caregiver Education & Training, Manual Therapy - Joint Manipulation, Home Exercise Program, Integrated Dry Needling, Modalities, Pain Management Pt to continue current HEP. See objective section for any therapeutic exercise changes, additions or modifications this date. PT Individual Minutes Time In: 0847 Time Out: 0940 Minutes: 53 Timed Code Treatment Minutes: 43 Minutes Procedure Minutes:10 Modality Time In Time Out Total Minutes Units Ther ex ([id number]) 842 918 31 2 Manual Therapy ([id number]) 910 930 12 1 MHP ([id number]) 930 940 10 0 Estim unattended ([id number]) 930 940 10 1 Signature: documented in this encounter [facility] Work Phone: 01-04-2021 History of Presen t illness Narrative [facility] Outpatient Physical Therapy Treatment Note Date: 01/04/2021 Patient: Tresa Garay : 1970 Referring Practitioner: Maricel Porter Diagnosis: Strain of muscle, fascia and tendon of right hip, strain of unspecified muscles, fascia and tendons at thigh level, right thigh Treatment Diagnosis: R hip pain, L hip pain, LBP, decreased B hip AROM, decreased lumbar AROM, decreased R hip and core strength, decreased and painful B SLS stability (+) B FADIR, and scour for groin pain, (+) R Fitzpatricks, and slump Visit Information: PT Visit Information Onset Date: 08/12/20 PT Insurance Information: [facility] claim # [id number] Total # of Visits to Date: 6 Plan of Care/Certification Expiration Date: 01/20/21 No Show: 0 Canceled Appointment: 0 Progress Note Counter: Subjective: 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 Pt reports this has made her more sore since she's not used to it. Pt reports taking OTC anti-inflammatories this AM for pain. Pt reports she will be working 3 days/week. Comments: RTD next week HEP Compliance: [x] Good [] Fair [] Poor [] Reports not doing due to: Vital Signs Patient Currently in Pain: Yes Pain Screening Patient Currently in Pain: Yes Pain Assessment Pain Assessment: 0-10 Pain Level: 5 Pain Type: Chronic pain Pain Location: Back; Hip Pain Orientation: Right Pain Descriptors: Aching; Constant OBJECTIVE: Exercises Exercise 2: LTR 5 x10 Exercise 3: B HS stretch supine w/ strap 20 x3 Exercise 4: mod bethany stretch 20 x3 with light assist on R LE Exercise 5: TA jose angel 5 x15 Exercise 6: Hip abd/add 5 x15/YTB Exercise 7: mini bridges 5 x10 (very small lift) Exercise 8: SKTC 10''x5 b/l; DKTC w/ LE's on pball 10''x5 b/l Exercise 10: PKF x15 Cliff Strength: [x] NT [] MMT completed: ROM: [x] NT [] ROM measurements: Manual: Manual therapy Soft Tissue Mobalization: R piriformis, thoracolumbar paraspinals w/ tenis ball x10 mins Modalities: Modalities Moist heat: x10 min to R hip and lumbar spine in prone for post exertion pain control/mm relxation E-stim (parameters): IFC x10 min to R lumbar spine/Hip for pain control/mm relaxation with MHP *Indicates exercise, modality, or manual techniques to be initiated when appropriate Assessment: Body structures, Functions, Activity limitations: Decreased functional mobility , Decreased ADL status, Decreased ROM, Decreased strength, Decreased balance, Increased pain, Decreased high-level IADLs, Decreased posture Assessment: Pt cont to c/o burning instantly w/ glut bridge, although pt able to tolerate w/ limited ROM. Pt also reports popping in R hip w/ eccentric return after supine HS stretch. Pt conts to be tender w/ manual, though gradually improving. Relief reported w/ modalities. 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 supervisor goals Time Frame for care home goals : 4-6 weeks care home goal 1: The pt will have a increase in LEFS score >/=50/80 points in order to increase functional activity tolerance care home goal 2: The pt will demo improved B hip and lumbar AROM >/=WNL's in order to increase ease with ADL's such as entering and exiting bathtub care home goal 3: The pt will be indep/compliant with HEP in order to self manage symptoms upon D/C care home goal 4: The pt will demo improved R LE strength >/= 4+/5 and core strength >/=fair in order to safely ambulate with decreased pain/limitations care home goal 5: The pt will demo improved B SLS >/=10 seconds to increase ease with ambulation Progress toward goals: inc strength, ROM, dec pain POST-PAIN Pain Rating (0-10 pain scale): 0/10 Location and pain description same as pre-treatment unless indicated. Action: [] NA [x] Perform HEP [] Meds as prescribed [] Modalities as prescribed [] Call Physician Frequency/Duration: Plan Times per week: 2 Plan weeks: 4-6 Current Treatment Recommendations: Strengthening, ROM, Balance Training, Neuromuscular Re-education, Manual Therapy - Soft Tissue Mobilization, Patient/Caregiver Education & Training, Manual Therapy - Joint Manipulation, Home Exercise Program, Integrated Dry Needling, Modalities, Pain Management Pt to continue current HEP. See objective section for any therapeutic exercise changes, additions or modifications this date. PT Individual Minutes Time In: 08 Time Out: 09 Minutes: 48 Timed Code Treatment Minutes: 38 Minutes Procedure Minutes: 10 Modality Time In Time Out Total Minutes Units Ther ex ([id number]) 338 919 28 2 Manual Therapy ([id number]) 91 929 10 1 MHP ([id number]) 927 939 10 0 Estim unattended ([id number]) 926 939 10 1 Signature: documented in this encounter [facility] Work Phone: 01-02-2021 History of Presen t illness Narrative [facility] Outpatient Physical Therapy Treatment Note Date: 01/02/2021 Patient: Tresa Garay : 1970 Referring Practitioner: Maricel Porter Diagnosis: Strain of muscle, fascia and tendon of right hip, strain of unspecified muscles, fascia and tendons at thigh level, right thigh Treatment Diagnosis: R hip pain, L hip pain, LBP, decreased B hip AROM, decreased lumbar AROM, decreased R hip and core strength, decreased and painful B SLS stability (+) B FADIR, and scour for groin pain, (+) R Fitzpatricks, and slump Visit Information: PT Visit Information Onset Date: 08/12/20 PT Insurance Information: [facility] claim # [id number] Total # of Visits to Date: 5 Plan of Care/Certification Expiration Date: 01/20/21 No Show: 0 Canceled Appointment: 0 Progress Note Counter: Subjective: Pt reports she is starting to feel better day by day. Says she occassionally gets a sharp pain in the R hip/lower back if she moves the wrong way or when over doing it. Comments: RTD Today HEP Compliance: [x] Good [] Fair [] Poor [] Reports not doing due to: Vital Signs Patient Currently in Pain: Yes Pain Screening Patient Currently in Pain: Yes Pain Assessment Pain Assessment: 0-10 Pain Level: 2 Pain Type: Chronic pain Pain Location: Back; Hip Pain Orientation: Right Pain Descriptors: Aching; Constant Pain Frequency: Intermittent OBJECTIVE: Exercises Exercise 2: LTR 5 x10 Exercise 4: mod bethany stretch 20 x3 with light assist on R LE Exercise 5: TA jose angel 5 x15 Exercise 6: Hip abd/add 5 x15/YTB Exercise 7: mini bridges 5 x10 (very small lift) Exercise 8: SKTC 10''x5 b/l; DKTC w/ LE's on pball 10''x5 b/l Exercise 9: clams x10 R x5 L (pain with R S/L) Exercise 10: PKF x10 Cliff Exercise 20: HEP: cont current Strength: [x] NT [] MMT completed: ROM: [x] NT [] ROM measurements: Manual: Manual therapy Soft Tissue Mobalization: R piriformis, thoracolumbar paraspinals w/ tenis ball x10 mins Modalities: Modalities Moist heat: x10 min to R hip and lumbar spine in prone for post exertion pain control/mm relxation E-stim (parameters): IFC x10 min to R lumbar spine/Hip for pain control/mm relaxation with MHP *Indicates exercise, modality, or manual techniques to be initiated when appropriate Assessment: Body structures, Functions, Activity limitations: Decreased functional mobility , Decreased ADL status, Decreased ROM, Decreased strength, Decreased balance, Increased pain, Decreased high-level IADLs, Decreased posture Assessment: Pt cont'd to progress through current stretching and exercise listed in POC this date with good tolerance and execution. Pt cont'd to hav ec/o burning sensation in SI region when performing hip bridge strengthening exercise which limited ROM. Concluded with Estim combined with moist hot pack to reduce pain and provide relief. Treatment Diagnosis: R hip pain, L hip pain, LBP, decreased B hip AROM, decreased lumbar AROM, decreased R hip and core strength, decreased and painful B SLS stability (+) B FADIR, and scour for groin pain, (+) R Fitzpatricks, and slump Prognosis: Fair, Good Goals: Short term goals Time Frame for Short term goals: 2-3 weeks Short term goal 1: The pt will have decreased pain >/=50% in order to increase ease with ADL's care home goals Time Frame for extermination supervisor goals : 4-6 weeks care home goal 1: The pt will have a increase in LEFS score >/=50/80 points in order to increase functional activity tolerance care home goal 2: The pt will demo improved B hip and lumbar AROM >/=WNL's in order to increase ease with ADL's such as entering and exiting bathtub 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 POST-PAIN Pain Rating (0-10 pain scale): 1-2 /10 Location and pain description same as pre-treatment unless indicated. Action: [x] NA [] Perform HEP [] Meds as prescribed [] Modalities as prescribed [] Call Physician Frequency/Duration: Plan Times per week: 2 Plan weeks: 4-6 Current Treatment Recommendations: Strengthening, ROM, Balance Training, Neuromuscular Re-education, Manual Therapy - Soft Tissue Mobilization, Patient/Caregiver Education & Training, Manual Therapy - Joint Manipulation, Home Exercise Program, Integrated Dry Needling, Modalities, Pain Management Pt to continue current HEP. See objective section for any therapeutic exercise changes, additions or modifications this date. PT Individual Minutes Time In: 0847 Time Out: 0940 Minutes: 53 Timed Code Treatment Minutes: 43 Minutes Procedure Minutes: 10 MHP/Estim Modality Time In Time Out Total Minutes Units Ther ex ([id number]) 847 920 33 2 Manual Therapy ([id number]) 920 930 10 1 Estim unattended ([id number]) 930 940 10 1 Hot Pack ([id number]) 930 940 10 Signature: documented in this encounter [employer] Phone: 12-28-2020 History of Presen t illness Narrative [facility] Outpatient Physical Therapy Treatment Note Date: 12/28/2020 Patient: Tresa Garay : 1970 Referring Practitioner: Maricel Porter Diagnosis: Strain of muscle, fascia and tendon of right hip, strain of unspecified muscles, fascia and tendons at thigh level, right thigh Treatment Diagnosis: R hip pain, L hip pain, LBP, decreased B hip AROM, decreased lumbar AROM, decreased R hip and core strength, decreased and painful B SLS stability (+) B FADIR, and scour for groin pain, (+) R Fitzpatricks, and slump Visit Information: PT Visit Information Onset Date: 08/12/20 PT Insurance Information: [facility] claim # [id number] Total # of Visits to Date: 4 Plan of Care/Certification Expiration Date: 01/20/21 No Show: 0 Canceled Appointment: 0 Progress Note Counter: 06/02- Subjective: Pt reports contd burnign pain into R LB and into R LE especially with standing and bending forward. Pt has been compliant with HEP. Feels pain is improving with exercises. Comments: RTD Today HEP Compliance: [x] Good [] Fair [] Poor [] Reports not doing due to: Vital Signs Patient Currently in Pain: Yes Pain Screening Patient Currently in Pain: Yes Pain Assessment Pain Assessment: 0-10 Pain Level: (1-2/10) Pain Type: Chronic pain Pain Location: Back;Hip Pain Orientation: Right OBJECTIVE: Exercises Exercise 2: LTR 5 x10 Exercise 4: mod bethany stretch 20 x3 with light assist on R LE Exercise 5: TA jose angel 5 x12 Exercise 6: Hip abd/add 5 x15/YTB Exercise 7: mini bridges 5 x10 (very small lift) Exercise 8: SKTC 10''x5 b/l; DKTC w/ LE's on pball 10''x5 b/l Exercise 9: clams x10 R x5 L (pain with R S/L) Exercise 10: PKF x10 Cliff Exercise 20: HEP: cont current Strength: [x] NT [] MMT completed: ROM: [x] NT [] ROM measurements: Manual: Manual therapy Soft Tissue Mobalization: R piriformis, thoracolumbar paraspinals w/ tenis ball x10 mins Modalities: Modalities Moist heat: x10 min to R hip and lumbar spine in prone for post exertion pain control/mm relxation E-stim (parameters): IFC x10 min to R lumbar spine/Hip for pain control/mm relaxation with MHP *Indicates exercise, modality, or manual techniques to be initiated when appropriate Assessment: Body structures, Functions, Activity limitations: Decreased functional mobility , Decreased ADL status, Decreased ROM, Decreased strength, Decreased balance, Increased pain, Decreased high-level IADLs, Decreased posture Assessment: Pt presents with contd tightness in R thoracolumbar spine with c/o burning in SI region throughout. Pt with slight improved tolerance to tx with ability to initiate clams and mini bridges though increased pain following exertion. initiated Estim for further pain control with good tolerance and relief noted. Treatment Diagnosis: R hip pain, L hip pain, LBP, decreased B hip AROM, decreased lumbar AROM, decreased R hip and core strength, decreased and painful B SLS stability (+) B FADIR, and scour for groin pain, (+) R Fitzpatricks, and slump Prognosis: Fair, Good Goals: Short term goals Time Frame for Short term goals: 2-3 weeks Short term goal 1: The pt will have decreased pain >/=50% in order to increase ease with ADL's care home goals Time Frame for care home goals : 4-6 weeks care home goal 1: The pt will have a increase in LEFS score >/=50/80 points in order to increase functional activity tolerance care home goal 2: The pt will demo improved B hip and lumbar AROM >/=WNL's in order to increase ease with ADL's such as entering and exiting bathtub 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 Action: [] NA [x] Perform HEP [] Meds as prescribed [] Modalities as prescribed [] Call Physician Frequency/Duration: Plan Times per week: 2 Plan weeks: 4-6 Current Treatment Recommendations: Strengthening, ROM, Balance Training, Neuromuscular Re-education, Manual Therapy - Soft Tissue Mobilization, Patient/Caregiver Education & Training, Manual Therapy - Joint Manipulation, Home Exercise Program, Integrated Dry Needling, Modalities, Pain Management Pt to continue current HEP. See objective section for any therapeutic exercise changes, additions or modifications this date. PT Individual Minutes Time In: 847 Time Out: 937 Minutes: 50 Timed Code Treatment Minutes: 40 Minutes Procedure Minutes: 10 MHP/Estim Modality Time In Time Out Total Minutes Units Ther ex ([id number]) 0848 0918 30 2 Manual Therapy ([id number]) 18 0928 10 1 Estim Unattended ([id number]) 927 0938 10 1 Moist Heat (10192) 927 1038 10 0 Signature: documented in this encounter [facility] Work Phone: 12-26-2020 History of Presen t illness Narrative [facility] Outpatient Physical Therapy Treatment Note Date: 12/26/2020 Patient: Tresa Garay : 1970 Referring Practitioner: Mariecl Porter Diagnosis: Strain of muscle, fascia and tendon of right hip, strain of unspecified muscles, fascia and tendons at thigh level, right thigh Treatment Diagnosis: R hip pain, L hip pain, LBP, decreased B hip AROM, decreased lumbar AROM, decreased R hip and core strength, decreased and painful B SLS stability (+) B FADIR, and scour for groin pain, (+) R Fitzpatricks, and slump Visit Information: PT Visit Information Onset Date: 08/12/20 PT Insurance Information: [facility] claim # [id number] Total # of Visits to Date: 3 Plan of Care/Certification Expiration Date: 01/20/21 No Show: 0 Canceled Appointment: 0 Progress Note Counter: 05/02- Subjective: Pt reports 2-3/10 pain currently. Pt reports mild soreness after LV that lasted maybe a couple hours. Pt reports she squatted down to looking in cabinet yesterday and had burning across LB, buttocks, and R hip Comments: RTD Today HEP Compliance: [x] Good [] Fair [] Poor [] Reports not doing due to: Vital Signs Patient Currently in Pain: Yes (see above) Pain Screening Patient Currently in Pain: Yes (see above) Pain Assessment Pain Assessment: 0-10 Pain Level: 3 Pain Type: Chronic pain Pain Location: Back;Hip Pain Orientation: Right Pain Descriptors: Aching;Constant OBJECTIVE: Exercises Exercise 2: LTR 5 x10 Exercise 4: mod bethany stretch 20 x3 with light assist on R LE Exercise 5: TA jose angel 5 x10 Exercise 6: Hip abd/add 5 x10/YTB - VC's for decreased intensity Exercise 7: glute sets 5 x10 Exercise 8: SKTC 10''x5 b/l; DKTC w/ LE's on pball 10''x5 b/l Exercise 20: HEP: SKTC, TA iso, glut set Strength: [x] NT [] MMT completed: ROM: [x] NT [] ROM measurements: Manual: Manual therapy Soft Tissue Mobalization: R>L piriformis, thoracolumbar paraspinals w/ tenis ball x10 mins Modalities: Modalities Moist heat: x10 min to R hip and lumbar spine in prone for post exertion pain control/mm relxation E-stim (parameters): PRN* *Indicates exercise, modality, or manual techniques to be initiated when appropriate Assessment: Body structures, Functions, Activity limitations: Decreased functional mobility , Decreased ADL status, Decreased ROM, Decreased strength, Decreased balance, Increased pain, Decreased high-level IADLs, Decreased posture Assessment: Pt w/ multiple trigger points and tender areas over R thoracolumbar paraspinals and piriformis during manual w/ light pressure. Educated pt on the importance of gentle stretching and mobility to decrease pain and sensitivity. Pt reporting some soreness post-tx. 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 Time Frame for extermination supervisor goals : 4-6 weeks care home goal 1: The pt will have a increase in LEFS score >/=50/80 points in order to increase functional activity tolerance care home goal 2: The pt will demo improved B hip and lumbar AROM >/=WNL's in order to increase ease with ADL's such as entering and exiting bathtub 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 Action: [] NA [x] Perform HEP [] Meds as prescribed [] Modalities as prescribed [] Call Physician Frequency/Duration: Plan Times per week: 2 Plan weeks: 4-6 Current Treatment Recommendations: Strengthening, ROM, Balance Training, Neuromuscular Re-education, Manual Therapy - Soft Tissue Mobilization, Patient/Caregiver Education & Training, Manual Therapy - Joint Manipulation, Home Exercise Program, Integrated Dry Needling, Modalities, Pain Management Pt to continue current HEP. See objective section for any therapeutic exercise changes, additions or modifications this date. PT Individual Minutes Time In: 0848 Time Out: 0940 Minutes: 52 Timed Code Treatment Minutes: 42 Minutes Procedure Minutes: 10 Modality Time In Time Out Total Minutes Units Ther ex (21077) 842 920 32 2 Manual Therapy ([id number]) 920 930 10 1 MHP ([id number]) 930 940 10 0 Signature: documented in this encounter [employer] Work Phone: 12-21-2020 History of Presen t illness Narrative [facility] Outpatient Physical Therapy Treatment Note Date: 12/21/2020 Patient: Tresa Garay : 1970 Referring Practitioner: Maricel Porter Diagnosis: Strain of muscle, fascia and tendon of right hip, strain of unspecified muscles, fascia and tendons at thigh level, right thigh Treatment Diagnosis: R hip pain, L hip pain, LBP, decreased B hip AROM, decreased lumbar AROM, decreased R hip and core strength, decreased and painful B SLS stability (+) B FADIR, and scour for groin pain, (+) R Fitzpatricks, and slump Visit Information: PT Visit Information Onset Date: 08/12/20 PT Insurance Information: [facility] claim # [id number] Total # of Visits to Date: 2 Plan of Care/Certification Expiration Date: 01/20/21 No Show: 0 Canceled Appointment: 0 Progress Note Counter: 04/04- Subjective: Pt reports some pain with attempting piriformis stretches at home. Current pain level 5-6/10 in LB and R hip that is burning. Comments: RTD Today HEP Compliance: [x] Good [] Fair [] Poor [] Reports not doing due to: Vital Signs Patient Currently in Pain: Yes (see above) Pain Screening Patient Currently in Pain: Yes (see above) OBJECTIVE: Exercises Exercise 1: B pirifromis stretch in H/L 20 x3- Right without overpressure Exercise 2: LTR 5 x10 Exercise 3: B HS stretch 20 x3 Exercise 4: mod bethany stretch 20 x3 with light assist on R LE Exercise 5: TA jose angel 5 x10 Exercise 6: Hip abd/add 5 x10/YTB Exercise 7: glute sets 5 x10 Exercise 8: SKTC/DKTC* Exercise 9: seated Hip IR/ER* Exercise 10: heel slides hip abd/flex with strap 5 x10 Exercise 11: Roll for control with towel and YTB 5 hold ea x10 Exercise 20: HEP: cont current Strength: [x] NT [] MMT completed: ROM: [] NT [] ROM measurements: Modalities: Modalities Moist heat: x10 min to R hip and lumbar spine for post exertion pain control/mm relxation E-stim (parameters): PRN* *Indicates exercise, modality, or manual techniques to be initiated when appropriate Assessment: Body structures, Functions, Activity limitations: Decreased functional mobility , Decreased ADL status, Decreased ROM, Decreased strength, Decreased balance, Increased pain, Decreased high-level IADLs, Decreased posture Assessment: Ther ex initiatied to further address strength and mobility of lumbopelvic complex with fair tolerance. Pt with reports of pain throughout all AROM/AAROM movements limiting progressions. Pt with pain especially during/after heel slides with strap on R LE. VC's required to perform ex in non-pain producing ROM. Concluded with MHP for pain control. 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 supervisor goals Time Frame for extermination supervisor goals : 4-6 weeks care home goal 1: The pt will have a increase in LEFS score >/=50/80 points in order to increase functional activity tolerance extermination supervisor goal 2: The pt will demo improved B hip and lumbar AROM >/=WNL's in order to increase ease with ADL's such as entering and exiting bathtub care home goal 3: The pt will be indep/compliant with HEP in order to self manage symptoms upon D/C extermination supervisor goal 4: The pt will demo improved R LE strength >/= 4+/5 and core strength >/=fair in order to safely ambulate with decreased pain/limitations extermination supervisor goal 5: The pt will demo improved B SLS >/=10 seconds to increase ease with ambulation Progress toward goals: to be determined POST-PAIN Pain Rating (0-10 pain scale): 2-3 / Location and pain description same as pre-treatment unless indicated. Action: [] NA [x] Perform HEP [] Meds as prescribed [] Modalities as prescribed [] Call Physician Frequency/Duration: Plan Times per week: 2 Plan weeks: 4-6 Current Treatment Recommendations: Strengthening, ROM, Balance Training, Neuromuscular Re-education, Manual Therapy - Soft Tissue Mobilization, Patient/Caregiver Education & Training, Manual Therapy - Joint Manipulation, Home Exercise Program, Integrated Dry Needling, Modalities, Pain Management Pt to continue current HEP. See objective section for any therapeutic exercise changes, additions or modifications this date. PT Individual Minutes Time In: 901 Time Out: 941 Minutes: 40 Timed Code Treatment Minutes: 30 Minutes Procedure Minutes: 10 MHP Modality Time In Time Out Total Minutes Units Ther ex (40097) 0902 0932 30 2 Mois Heat (58109) 0930 0942 10 0 Signature: documented in this encounter [employer] Work Phone: 12-19-2020 History of Presen t illness Narrative [facility] Physical Therapy- [facility] PHYSICAL THERAPY EVALUATION Date: 12/19/2020 Patient Name: Tresa Garay Account: [id number] : 1970 (50 y.o.) Gender: female Referring Practitioner: Maricel Porter Diagnosis: Strain of muscle, fascia and tendon of right hip, strain of unspecified muscles, fascia and tendons at thigh level, right thigh Treatment Diagnosis: R hip pain, L hip pain, LBP, decreased B hip AROM, decreased lumbar AROM, decreased R hip and core strength, decreased and painful B SLS stability (+) B FADIR, and scour for groin pain, (+) R Fitzpatricks, and slump Past Medical History: has a past medical history of Anxiety and Depression. Past Surgical History: has a past surgical history that includes Appendectomy (2002); Kidney surgery (Right, 2015); and Hysterectomy (2016). Vital Signs Patient Currently in Pain: Yes Pain Screening Patient Currently in Pain: Yes Pain Assessment Pain Assessment: 0-10 Pain Level: 4 (Pain ranges from 1-10/10) Pain Type: Chronic pain Pain Location: Hip;Back Pain Orientation: Right Pain Radiating Towards: intermittent numbness lateral R thigh to knee Pain Descriptors: Aching;Constant Pain Frequency: Continuous Clinical Progression: Gradually improving Non-Pharmaceutical Pain Intervention(s): Rest;Heat applied Lives With: Spouse Type of Home: House Bathroom Shower/Tub: Tub/Shower unit (difficulty getting in and out of shower) ADL Assistance: Independent Homemaking Assistance: Independent Homemaking Responsibilities: Yes Ambulation Assistance: Independent Transfer Assistance: Independent Active Drug Room Clerk: Yes 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 Pt reports since she has been having LBP and numbness on lateral aspect of R LE. Pt reports having difficulty with walking >15 mins d/t pain worsening with burning sensations. Pt was provided flexiril and takes Tylenol and ibuprofen as needed. Comments: RTD Today Objective: Balance Single Leg Stance R Le Single Leg Stance L Le Ambulation 1 Surface: carpet Device: No Device Assistance: Independent Quality of Gait: R LE antalgia Distance: within dept clinical distances Strength RLE Comment: 4/5 Hip ER, knee flex 4-/5 Hip IR, 3/5 hip flex, ext 4+/5 knee ext, ankle DF 3+/5 hip abd Strength LLE Comment: 5/5 Hip IR, ER, flex, knee, ankle DF 4+/5 hip ext, abd Strength Other Other: poor core strength based off isometric abdominal testing PROM RLE (degrees) RLE General PROM: SLR 35 limited by groin and lateral hip pain AROM RLE (degrees) RLE General AROM: Hip ER 22, IR 25, flex 74, abd 20, ext 3 (pain with mvmt) PROM LLE (degrees) LLE General PROM: SLR 65 limited by pain in groin AROM LLE (degrees) LLE General AROM: Hip ER 40, IR 45, flex 104, abd 32, ext 10 (pain at end ranges ER>IR) Spine Lumbar: flex 50%, ext 25%, SB R 25%, L 50%, Rot B 25% Observation/Palpation Palpation: mod tightness R lumbar parapsinals, B piriformis, R ITB; Tender to palpate R Greater trochanter, piriformis, lumbar parapsinals Observation: forward flexed, increased lumbar lordosis, slight L Lateral shift, decreased wbing on R LE in standing and sitting Additional Measures Flexibility: (+) B elys Special Tests: (+) R slump, L scour, FADIR for groin pain, R JUSTICE, FADIR, scour for groin pain, R fitpatrick's, Pain with LE distraction Exercises: Exercises Exercise 1: B pirifromis stretch in H/L 20 x3- Right without overpressure Exercise 2: LTR 5 x10 Exercise 3: B HS stretch 20 x3 Exercise 4: mod bethany stretch* Exercise 5: TA jose angel* Exercise 6: Hip abd/add* Exercise 7: glute sets* Exercise 8: SKTC/DKTC* Exercise 9: seated Hip IR/ER* Exercise 10: heel slides hip abd/flex* Exercise 20: HEP: LTR, piriformis strtech, B HS stretch Modalities: Modalities Moist heat: x10 min to R hip and lumbar spine for post exertion pain control/mm relxation E-stim (parameters): PRN* Manual: Manual therapy PROM: R hip* Soft Tissue Mobalization: R piriformis, ITB, lumbar paraspinals* *Indicates exercise,modality, or manual techniques to be initiated when appropriate Assessment: Body structures, Functions, Activity limitations: Decreased functional mobility , Decreased ADL status, Decreased ROM, Decreased strength, Decreased balance, Increased pain, Decreased high-level IADLs, Decreased posture Assessment: Pt presents with osnet of R hip pain beginning after a fall at work 08/12/20. Pt since has been with ongoing pain and worsening of pain symptoms now including LB and L hip pain as well as intermittent R lateral LE N/T to knee. Pt currently presents with decreased B hip AROM, decreased lumbar AROM, decreased R hip and core strength, decreased and painful B SLS stability (+) B FADIR, and scour for groin pain, (+) R Fitzpatricks, and slump. These impairments currently limit her functional abilities to ambulate, perform ADL's, transfers, bed mobility, sleep, stand, or perform work duties at [employer]. Prognosis: Fair, Good Discharge Recommendations: Continue to assess pending progress Activity Tolerance: Patient limited by pain Decision Making: Medium Complexity History: med Exam: high Clinical Presentation: med Plan Frequency/Duration: Plan Times per week: 2 Plan weeks: 4-6 Current Treatment Recommendations: Strengthening, ROM, Balance Training, Neuromuscular Re-education, Manual Therapy - Soft Tissue Mobilization, Patient/Caregiver Education & Training, Manual Therapy - Joint Manipulation, Home Exercise Program, Integrated Dry Needling, Modalities, Pain Management Patient Education New Education Provided: PT Education: Goals;PT Role;Plan of Care;Home Exercise Program Patient Education: evaluative findings, anatomy of current condition POST-PAIN Pain Rating (0-10 pain scale): 3-4/10 Location and pain description same as pre-treatment unless indicated. Action: [] NA [] Call Physician [x] Perform HEP [] Meds as prescribed Evaluation and patient rights have been reviewed and patient agrees with plan of care. Yes [x] No [] Explain: Mclaughlin Fall Risk Assessment Risk Factor Scale Score History of Falls [x] Yes [] No 25 0 25 Secondary Diagnosis [] Yes [x] No 15 0 Ambulatory Aid [] Furniture [] Crutches/cane/walker [x] None/bedrest/wheelchair/nurse 30 15 0 IV/Heparin Lock [] Yes [x] No 20 0 Gait/Transferring [] Impaired [x] Weak [] Normal/bedrest/immobile 20 10 0 10 Mental Status [] Forgets limitations [x] Oriented to own ability 15 0 Total: 35 Based on the Assessment score: check the appropriate box. [] No intervention needed Low = Score of 0-24 [x] Use standard prevention interventions Moderate = Score of 24-44 [x] Discuss fall prevention strategies [x] Indicate moderate falls risk on eval [] Use high risk prevention interventions High = Score of 45 and higher [] Discuss fall prevention strategies [] Provide supervision during treatment time Goals Short term goals Time Frame for Short term goals: 2-3 weeks Short term goal 1: The pt will have decreased pain >/=50% in order to increase ease with ADL's care home goals Time Frame for care home goals : 4-6 weeks care home goal 1: The pt will have a increase in LEFS score >/=50/80 points in order to increase functional activity tolerance care home goal 2: The pt will demo improved B hip and lumbar AROM >/=WNL's in order to increase ease with ADL's such as entering and exiting bathtub care home goal 3: The pt will be indep/compliant with HEP in order to self manage symptoms upon D/C care home goal 4: The pt will demo improved R LE strength >/= 4+/5 and core strength >/=fair in order to safely ambulate with decreased pain/limitations extermination supervisor goal 5: The pt will demo improved B SLS >/=10 seconds to increase ease with ambulation Treatment Initiated : ther ex, hep, modalities PT Individual Minutes Time In: 1015 Time Out: 1115 Minutes: 60 Timed Code Treatment Minutes: 10 Minutes Procedure Minutes: 40 eval 10 MHP Modality Time In Time Out Total Time Units PT Evaluation: Moderate Complexity (09770) 1015 1055 40 1 Ther ex (25431) 1055 1105 10 1 Moist Heat (56973) 1105 1115 10 0 documented in this encounter [employer] Phone: 08-12-2020 History of Presen t illness Narrative Patient here and evaluated. It sounds like she came through [facility]. [facility] for right hip pain.Patient had a right hip Workers Compensation injury 08/12/2020. She went on to get x-rays and rehab and had continued hip pain. She had an MRI done at the open [facility] through [facility] that did show she had sustained a pubic rami fracture. There was also some variation of the labrum, but due to motion artifact, low quality imaging, and lack of contrast, they could not rule out labral tear. She has gone on to rehab for another six months and has a combination of back pain, hip pain, and groin pain. [facility] [facility] Work Phone: documented in this encounter [employer] Phone: evaluation note* Diagnosis Strain of hip adductor muscle, right, initial encounter documented in this encounter [employer] Phone: evaluation note* Diagnosis Acute recurrent pansinusitis- Primary Other acute sinusitis URI, acute Acute upper respiratory infections of unspecified site Encounter for screening for COVID-19 [facility]* Diagnosis Depressive disorder Depressive disorder, not elsewhere classified documented in this encounter [facility] note* Diagnosis Anxiety Anxiety state, unspecified Depressive disorder Depressive disorder, not elsewhere classified documented in this encounter [facility] note* Diagnosis Depressive disorder Depressive disorder, not elsewhere classified Heartburn documented in this encounter [facility] note* Diagnosis Wellness examination- Primary Depressive disorder Depressive disorder, not elsewhere classified Heartburn Anxiety Anxiety state, unspecified Screening for lipid disorders Screening, anemia, deficiency, iron Screening for iron deficiency anemia Screening for thyroid disorder Encounter for screening for diabetes mellitus Screening for diabetes mellitus Vitamin D deficiency Unspecified vitamin D deficiency Screening for HIV (human immunodeficiency virus) Special screening examination for other specified viral diseases Encounter for hepatitis C screening test for low risk patient documented in this encounter [facility] note* Diagnosis Screening, anemia, deficiency, iron- Primary Screening for iron deficiency anemia Encounter for screening for diabetes mellitus Screening for diabetes mellitus Screening for lipid disorders Vitamin D deficiency Unspecified vitamin D deficiency Screening for thyroid disorder Screening for HIV (human immunodeficiency virus) Special screening examination for other specified viral diseases Encounter for hepatitis C screening test for low risk patient [facility]* Diagnosis Encounter for immunization- Primary Need for other specified prophylactic vaccination against single bacterial disease documented in this encounter [facility] note* Diagnosis Screening mammogram, encounter for- Primary Depressive disorder Depressive disorder, not elsewhere classified Heartburn Anxiety Anxiety state, unspecified documented in this encounter [facility] note* Diagnosis Back pain, unspecified back location, unspecified back pain laterality, unspecified chronicity documented in this encounter [employer] Phone: evaluation note* Diagnosis Closed bilateral fracture of pubic rami, initial encounter (HCC) documented in this encounter [employer] Phone: evaluation note* Diagnosis Closed bilateral fracture of pubic rami, initial encounter (HCC) documented in this encounter [employer] Phone: evaluation note* Diagnosis Sprain of ligaments of lumbar spine, subsequent encounter documented in this encounter [facility] [employer] Phone: evaluation note* Diagnosis Depressive disorder Depressive disorder, not elsewhere classified documented in this encounter [facility] note* Diagnosis Right-sided chest pain- Primary Acute right-sided thoracic back pain Acute cystitis without hematuria Acute cystitis Anxiety Anxiety state, unspecified Depressive disorder Depressive disorder, not elsewhere classified [facility]* Diagnosis Heartburn documented in this encounter [facility] note* Diagnosis Encounter for immunization- Primary Need for other specified prophylactic vaccination against single bacterial disease documented in this encounter [facility] note* Diagnosis Anxiety Anxiety state, unspecified Depressive disorder Depressive disorder, not elsewhere classified documented in this encounter [facility] note* Diagnosis Hydronephrosis, unspecified hydronephrosis type UPJ (ureteropelvic junction) obstruction Other ureteric obstruction Acute pyelitis Acute pyelonephritis without lesion of renal medullary necrosis documented in this encounter [facility] Discharge instructions* Attachments The following attachments cannot be sent through Care Everywhere. * Kidney Stone (Albanian) * Kidney Stone Prevention Diet: General Info (Albanian) documented in this [employer] Phone: reason for referral (narrative)* Diagnostic Procedure Only (Routine) - Pending Review Specialty Diagnoses / Procedures Referred By Contac t Referred To Contact [facility] Diagnoses Screening mammogram, encounter for Procedures WOLF SCREENING SCREENING MAMMOGRAPHY BI 2-VIEW BREAST INC CAD Geno Archer DO [address] [place] [address] [facility] [address] [place] [address] Referral ID Status Reason Start Date Expiration Date Visits Requested Visits Authorized [id number] Pending Review Auto-Generat ed Referral 02/27/2022 03/29/2023 1 1 [facility] Summary Purpose Family History No Family History Records FoundNo Family History Records FoundNo Family History Records FoundNo Family History Records FoundNo Family History Records FoundNo Family History Records FoundNo Family History Records FoundNo Family History Records FoundNo Family History Records FoundNo Family History Records Found Advance Directives No Advanced Directives Records FoundDocuments on File Type Date Recorded 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 Assembly Expl anation Advance Directive(s) 05/23/2018 10:27 AM Latest Code Status on File Code Status Date Activated Date Inactivated Comments Full Code 03/02/2023 7:26 AM 03/03/2023 2:54 PM Question Answer Comments Full Code Order Discussed With: Patient Latest Code Status on File Code Status Date Activated Date Inactivated Comments Full Code 03/02/2023 7:26 AM 03/03/2023 2:54 PM Question Answer Comments Full Code Order Discussed With: Patient Reason for Referral Specialty Diagnoses / Procedures Referred By Contac t Referred To Contact Radiology Diagnoses Strain of hip adductor muscle, right, initial encounter Procedures MRI HIP RIGHT WO CONTRAST Danielle Valadez APRN - MESMERIST [address] [place] [address] Referral ID Status Reason Start Date Expiration Date Visits Re quested Visits Authorized [id number] Closed 01/31/2021 03/03/2021 1 1 Specialty Diagnoses / Procedures Referred By Contac t Referred To Contact Radiology Diagnoses Closed bilateral fracture of pubic rami, initial encounter ([facility] S32.591A, S32.592A (ICD-10-CM) - Closed bilateral fracture of pubic rami, initial encounter ([facility]) Procedures MRI PELVIS WO CONTRAST CHG MRI PELVIS W/O CONTRAST MATERIAL 77075 - CHG MRI PELVIS W/O CONTRAST MATERIAL Danielle Valadez APRN - MESMERIST [address] [place] [address] Referral ID Status Reason Start Date Expiration Date Visits Re quested Visits Authorized [id number] Closed 2022 2023 1 1 Specialty Diagnoses / Procedures Referred By Contac t Referred To Contact Radiology Diagnoses Closed bilateral fracture of pubic rami, initial encounter ([facility]) S32.591A, S32.592A (ICD-10-CM) - Closed bilateral fracture of pubic rami, initial encounter ([facility]) Procedures CT PELVIS WO CONTRAST Additional Contrast? None CHG CT PELVIS W/O CONTRAST MATERIAL [id number] - CHG CT PELVIS W/O CONTRAST MATERIAL Danielle Valadez, [employer] - MESMERIST [address] [place] [address] Referral ID Status Reason Start Date Expiration Date Visits Re quested Visits Authorized [id number] Closed 2022 2023 1 1 Specialty Diagnoses / Procedures Referred By Contac t Referred To Contact Radiology Diagnoses Sprain of ligaments of lumbar spine, subsequent encounter S33.5XXD (ICD-10-CM) - Sprain of ligaments of lumbar spine, subsequent encounter Procedures MRI LUMBAR SPINE WO CONTRAST CHG MRI SPINAL CANAL LUMBAR W/O CONTRAST MATERIAL [id number] - CHG MRI SPINAL CANAL LUMBAR W/O CONTRAST MATERIAL Danielle Valadez, [employer] - MESMERIST [address] [place] [address] Referral ID Status Reason Start Date Expiration Date Visits Re quested Visits Authorized [id number] Closed 04/17/2022 05/15/2022 1 1 Chief Complaint * [facility] - Rt Hip Pain * Xrays Today * [facility] - Rt Hip Pain * Xrays Today Additional Source Comments INFORMATION SOURCE (unrecogn ized section and content) DATE CREATED AUTHOR AUTHOR'S ORGANIZ ATION 11/25/2018 [facility] DATE CREATED AUTHOR AUTHOR'S ORGANIZ ATION 08/14/2020 [facility] DATE CREATED AUTHOR AUTHOR'S ORGANIZ ATION 11/18/2020 [facility] DATE CREATED AUTHOR AUTHOR'S ORGANIZ ATION 06/02/2021 [facility] DATE CREATED AUTHOR AUTHOR'S ORGANIZ ATION 08/04/2021 [facility] DATE CREATED AUTHOR AUTHOR'S ORGANIZ ATION 08/06/2021 [employer] DATE CREATED AUTHOR AUTHOR'S ORGANIZ ATION 03/08/2022 [facility] DATE CREATED AUTHOR AUTHOR'S ORGANIZ ATION [facility] DATE CREATED AUTHOR AUTHOR'S ORGANIZ ATION 04/09/2023 [facility] Reason for Visit (unrecogniz ed section and content) Specialty Diagnoses / Procedures Referred By Contac t Referred To Contact Radiology Diagnoses Strain of hip adductor muscle, right, initial encounter Procedures MRI HIP RIGHT WO CONTRAST Danielle Valadez APRN - MESMERIST [address] [place] [address] Referral ID Status Reason Start Date Expiration Date Visits Re quested Visits Authorized [id number] Closed 01/31/2021 03/03/2021 1 1 Reason Comments Refill Request Reason Onset Date Comments Refill Request 09/22/2021 Reason Onset Date Comments Refill Request 10/04/2021 Reason Comments Lab Orders Reason Comments Results Reason Onset Date Comments Refill Request 01/29/2022 Reason Onset Date Comments Refill Request 02/27/2022 Reason Comments Results mammogram Specialty Diagnoses / Procedures Referred By Nettie t Referred To Contact Radiology Diagnoses Closed bilateral fracture of pubic rami, initial encounter (HCC) S32.591A, S32.592A (ICD-10-CM) - Closed bilateral fracture of pubic rami, initial encounter ([facility]) Procedures MRI PELVIS WO CONTRAST CHG MRI PELVIS W/O CONTRAST MATERIAL [id number] - CHG MRI PELVIS W/O CONTRAST MATERIAL Danielle Valadez APRN - NP [address] [place] [address] Referral ID Status Reason Start Date Expiration Date Visits Re quested Visits Authorized [id number] Closed 2022 2023 1 1 Specialty Diagnoses / Procedures Referred By Angelicaac t Referred To Contact Radiology Diagnoses Closed bilateral fracture of pubic rami, initial encounter (HCC) S32.591A, S32.592A (ICD-10-CM) - Closed bilateral fracture of pubic rami, initial encounter ([facility]) Procedures CT PELVIS WO CONTRAST Additional Contrast? None CHG CT PELVIS W/O CONTRAST MATERIAL [id number] - CHG CT PELVIS W/O CONTRAST MATERIAL Danielle Valadez APRN - MESMERIST [address] [place] [address] Referral ID Status Reason Start Date Expiration Date Visits Re quested Visits Authorized [id number] Closed 2022 2023 1 1 Specialty Diagnoses / Procedures Referred By Contac t Referred To Contact Radiology Diagnoses Sprain of ligaments of lumbar spine, subsequent encounter S33.5XXD (ICD-10-CM) - Sprain of ligaments of lumbar spine, subsequent encounter Procedures MRI LUMBAR SPINE WO CONTRAST CHG MRI SPINAL CANAL LUMBAR W/O CONTRAST MATERIAL [id number] - CHG MRI SPINAL CANAL LUMBAR W/O CONTRAST MATERIAL Danielle Valadez, SHOP AND ALTERATION TAILOR - MESMERIST [address] [place] [address] Referral ID Status Reason Start Date Expiration Date Visits Re quested Visits Authorized [id number] Closed 04/17/2022 05/15/2022 1 1 Reason Comments ER F/U Reason Comments Medication Question Reason Comments flu vaccine Reason Onset Date Comments Refill Request 01/16/2023 Specialty Diagnoses / Procedures Referred By Contac t Referred To Contact CT IMAGING Diagnoses Hydronephrosis, unspecified hydronephrosis type UPJ (ureteropelvic junction) obstruction Acute pyelitis Procedures CT UROGRAM WO/W IVCON CT ABD & PELVIS W/WO CONTRST 1+ BODY REGNS Cortez Pinedo, SHOP AND ALTERATION TAILOR.MARINE SERVICE STATION ATTENDANT [address] [place] [address] [place] [address] Referral ID Status Reason Start Date Expiration Date V isits Requested Visits Authorized [id number] Closed Auto-Generate d Referral 03/21/2023 02/25/2024 1 1 Ordered Prescriptions (unrec ognized section and content) Scheduled Active and Recently Administ ered Medications (unrecognized section and content) Care Teams (unrecognized sec tion and content) Motel Operator Relationship Specialty Start Date End Date Cortez Pinedo [employer] ALTERATION TAILOR - MARINE SERVICE STATION ATTENDANT [address] [place] [address] PCP - General Internal Medicine 08/12/20 Motel Operator Relationship Specialty Start Date End Date Cortez Pinedo [employer] ALTERATION TAILOR - MARINE SERVICE STATION ATTENDANT [address] [place] [address] PCP - General Internal Medicine 08/12/20 Motel Operator Relationship Specialty Start Date End Date Cortez Pinedo, [employer] ALTERATION TAILOR - MARINE SERVICE STATION ATTENDANT [address] [place] [address] PCP - General Internal Medicine 08/12/20 Motel Operator Relationship Specialty Start Date End Date Cortez Pinedo, [employer] AND ALTERATION TAILOR - MARINE SERVICE STATION ATTENDANT [address] [place] [address] PCP - General Internal Medicine 08/12/20 Motel Operator Relationship Specialty Start Date End Date Cortez Pinedo, SH[employer] AND ALTERATION TAILOR - MARINE SERVICE STATION ATTENDANT [address] [place] [address] PCP - General Internal Medicine 08/12/20 Motel Operator Relationship Specialty Start Date End Date Cortez Pinedo, SH[employer] AND ALTERATION TAILOR - MARINE SERVICE STATION ATTENDANT [address] [facility] [address] PCP - General Internal Medicine 08/12/20 Motel Operator Relationship Specialty Start Date End Date Cortez Pinedo, SH[employer] AND ALTERATION TAILOR - MARINE SERVICE STATION ATTENDANT [address] [facility] [address] PCP - General Internal Medicine 08/12/20 Motel Operator Relationship Specialty Start Date End Date Cortez Pinedo, SH[employer] AND ALTERATION TAILOR - MARINE SERVICE STATION ATTENDANT [address] [place] [address] PCP - General Internal Medicine 08/12/20 Motel Operator Relationship Specialty Start Date End Date Cortez Pinedo, SH[employer] AND ALTERATION TAILOR - MARINE SERVICE STATION ATTENDANT [address] [place] [address] PCP - General Internal Medicine 08/12/20 Motel Operator Relationship Specialty Start Date End Date Cortez Pinedo, SH[employer] AND ALTERATION TAILOR.MARINE SERVICE STATION ATTENDANT PCP - General 12/09/14 Motel Operator Relationship Specialty Start Date End Date Cortez Pinedo SHOP AND ALTERATION TAILOR.MARINE SERVICE STATION ATTENDANT PCP - General 12/09/14 Motel Operator Relationship Specialty Start Date End Date KhrisCortez, SHOP AND ALTERATION TAILOR.MARINE SERVICE STATION ATTENDANT PCP - General 12/09/14 Motel Operator Relationship Specialty Start Date End Date Cortez Pinedo, [employer] AND ALTERATION TAILOR.MARINE SERVICE STATION ATTENDANT PCP - General 12/09/14 Motel Operator Relationship Specialty Start Date End Date Cortez Pinedo, SHOP AND ALTERATION TAILOR.MARINE SERVICE STATION ATTENDANT PCP - General 12/09/14 Motel Operator Relationship Specialty Start Date End Date Cortez Pinedo, SHOP AND ALTERATION TAILOR.MARINE SERVICE STATION ATTENDANT PCP - General 12/09/14 Motel Operator Relationship Specialty Start Date End Date Cortez Pinedo, SHOP AND ALTERATION TAILOR.MARINE SERVICE STATION ATTENDANT PCP - General 12/09/14 Motel Operator Relationship Specialty Start Date End Date Cortez Pinedo, SHOP AND ALTERATION TAILOR.MARINE SERVICE STATION ATTENDANT PCP - General 12/09/14 Motel Operator Relationship Specialty Start Date End Date Cortez Pinedo, SHOP AND ALTERATION TAILOR.MARINE SERVICE STATION ATTENDANT PCP - General 12/09/14 Motel Operator Relationship Specialty Start Date End Date Cortez Pinedo, SHOP AND ALTERATION TAILOR.MARINE SERVICE STATION ATTENDANT PCP - General 12/09/14 Motel Operator Relationship Specialty Start Date End Date Cortez Pinedo, SHOP AND ALTERATION TAILOR - MARINE SERVICE STATION ATTENDANT [address] [place] [address] PCP - General Internal Medicine 08/12/20 Motel Operator Relationship Specialty Start Date End Date Cortez Pinedo, SH[employer] ALTERATION TAILOR - MARINE SERVICE STATION ATTENDANT [address] [place] [address] PCP - General Internal Medicine 08/12/20 Motel Operator Relationship Specialty Start Date End Date Cortez Pinedo SH[employer] ALTERATION TAILOR - MARINE SERVICE STATION ATTENDANT [address] [place] [address] PCP - General Internal Medicine 08/12/20 Motel Operator Relationship Specialty Start Date End Date Cortez Pinedo, SH[employer] AND ALTERATION TAILOR.MARINE SERVICE STATION ATTENDANT PCP - General 12/09/14 Motel Operator Relationship Specialty Start Date End Date Cortez Piendo SHOP AND ALTERATION TAILOR.MARINE SERVICE STATION ATTENDANT PCP - General 12/09/14 Motel Operator Relationship Specialty Start Date End Date Cortez Pinedo SHOP AND ALTERATION TAILOR.MARINE SERVICE STATION ATTENDANT PCP - General 12/09/14 Motel Operator Relationship Specialty Start Date End Date Cortez Pinedo SHOP AND ALTERATION TAILOR.MARINE SERVICE STATION ATTENDANT PCP - General 12/09/14 Motel Operator Relationship Specialty Start Date End Date Cortez Pinedo SHOP AND ALTERATION 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 Source Comments (unrecognize d section and content) In the event this informatio n is protected by the Federal Confidentiality of Alcohol and Drug Abuse Patient Records regulations: The Federal rules restrict any use of the information to criminally investigate or prosecute any alcohol or drug abuse patient.[facility] RehabilitationIn the event this information is protected by the Federal Confidentiality of Alcohol and Drug Abuse Patient Records regulations: The Federal rules restrict any use of the information to criminally investigate or prosecute any alcohol or drug abuse patient.[facility] RehabilitationIn the event this information is protected by the Federal Confidentiality of Alcohol and Drug Abuse Patient Records regulations: The Federal rules restrict any use of the information to criminally investigate or prosecute any alcohol or drug abuse patient.[facility] RehabilitationIn the event this information is protected by the Federal Confidentiality of Alcohol and Drug Abuse Patient Records regulations: The Federal rules restrict any use of the information to criminally investigate or prosecute any alcohol or drug abuse patient.[facility] RehabilitationIn the event this information is protected by the Federal Confidentiality of Alcohol and Drug Abuse Patient Records regulations: The Federal rules restrict any use of the information to criminally investigate or prosecute any alcohol or drug abuse patient.[facility] RehabilitationIn the event this information is protected by the Federal Confidentiality of Alcohol and Drug Abuse Patient Records regulations: The Federal rules restrict any use of the information to criminally investigate or prosecute any alcohol or drug abuse patient.[facility] RehabilitationIn the event this information is protected by the Federal Confidentiality of Alcohol and Drug Abuse Patient Records regulations: The Federal rules restrict any use of the information to criminally investigate or prosecute any alcohol or drug abuse patient.[facility] RehabilitationIn the event this information is protected by the Federal Confidentiality of Alcohol and Drug Abuse Patient Records regulations: The Federal rules restrict any use of the information to criminally investigate or prosecute any alcohol or drug abuse patient.[facility] RehabilitationIn the event this information is protected by the Federal Confidentiality of Alcohol and Drug Abuse Patient Records regulations: The Federal rules restrict any use of the information to criminally investigate or prosecute any alcohol or drug abuse patient.[facility] RehabilitationIn the event this information is protected by the Federal Confidentiality of Alcohol and Drug Abuse Patient Records regulations: The Federal rules restrict any use of the information to criminally investigate or prosecute any alcohol or drug abuse patient.[facility] RehabilitationIn the event this information is protected by the Federal Confidentiality of Alcohol and Drug Abuse Patient Records regulations: The Federal rules restrict any use of the information to criminally investigate or prosecute any alcohol or drug abuse patient.[facility] RehabilitationIn the event this information is protected by the Federal Confidentiality of Alcohol and Drug Abuse Patient Records regulations: The Federal rules restrict any use of the information to criminally investigate or prosecute any alcohol or drug abuse patient.[facility] RehabilitationIn the event this information is protected by the Federal Confidentiality of Alcohol and Drug Abuse Patient Records regulations: The Federal rules restrict any use of the information to criminally investigate or prosecute any alcohol or drug abuse patient.[facility] RehabilitationIn the event this information is protected by the Federal Confidentiality of Alcohol and Drug Abuse Patient Records regulations: The Federal rules restrict any use of the information to criminally investigate or prosecute any alcohol or drug abuse patient.[facility] RehabilitationIn the event this information is protected by the Federal Confidentiality of Alcohol and Drug Abuse Patient Records regulations: The Federal rules restrict any use of the information to criminally investigate or prosecute any alcohol or drug abuse patient.[facility] RehabilitationIn the event this information is protected by the Federal Confidentiality of Alcohol and Drug Abuse Patient Records regulations: The Federal rules restrict any use of the information to criminally investigate or prosecute any alcohol or drug abuse patient.[facility] RehabilitationIn the event this information is protected by the Federal Confidentiality of Alcohol and Drug Abuse Patient Records regulations: The Federal rules restrict any use of the information to criminally investigate or prosecute any alcohol or drug abuse patient.[facility] RehabilitationIn the event this information is protected by the Federal Confidentiality of Alcohol and Drug Abuse Patient Records regulations: The Federal rules restrict any use of the information to criminally investigate or prosecute any alcohol or drug abuse patient.[facility] RehabilitationIn the event this information is protected by the Federal Confidentiality of Alcohol and Drug Abuse Patient Records regulations: The Federal rules restrict any use of the information to criminally investigate or prosecute any alcohol or drug abuse patient.[facility] RehabilitationIn the event this information is protected by the Federal Confidentiality of Alcohol and Drug Abuse Patient Records regulations: The Federal rules restrict any use of the information to criminally investigate or prosecute any alcohol or drug abuse patient.[facility] RehabilitationIn the event this information is protected by the Federal Confidentiality of Alcohol and Drug Abuse Patient Records regulations: The Federal rules restrict any use of the information to criminally investigate or prosecute any alcohol or drug abuse patient.[facility] RehabilitationIn the event this information is protected by the Federal Confidentiality of Alcohol and Drug Abuse Patient Records regulations: The Federal rules restrict any use of the information to criminally investigate or prosecute any alcohol or drug abuse patient.[facility] RehabilitationIn the event this information is protected by the Federal Confidentiality of Alcohol and Drug Abuse Patient Records regulations: The Federal rules restrict any use of the information to criminally investigate or prosecute any alcohol or drug abuse patient.[facility] FOR RECORDS PERTAINING TO PATIENTS WHO ARE OR HAVE BEEN ENROLLED IN A CHEMICAL DEPENDENCY/SUBSTANCEABUSE PROGRAM, SOME INFORMATION MAY BE OMITTED. This clinical summary was aggregated from multiple sources. Caution should be exercised in using it in the provision of clinical care. This summary normalizes information from multiple sources, and as a consequence, information in this document may materially change the coding, format and clinical context of patient data. In addition, data may be omitted in some cases. CLINICAL DECISIONS SHOULD BE BASED ON THE PRIMARY CLINICAL RECORDS. [facility] provides no warranty or guarantee of the accuracy or completeness of information in this document.
== END | disposition home or self-care (01) ==
LOC: NM 11:22
PROVIDERS: PCP Nurse Practitioner Adult Health; Referring Provider Urology; Visit Provider Urology
DX: N13.30 Unspecified hydronephrosis (principal)
CPT/HCPCS: 78708; A9562; J1940

== ENCOUNTER 2023-05-02 08:00 | Day surgery (SDC) | payer BC, SELFPAY ==
[2023-05-02] VITALS (7 sets, daily range): BP systolic 109–133; BP diastolic 61–101; PULSE 79–99; RESP 16–18; TEMP 36.4–37.2; O2SAT 96–100; BMI 31.0
--- OUTSIDE RECORDS SUMMARY | 2023-05-02 08:16 | XMS RPT_ITS | CCD ---
Author Name Unknown Address [email or web address] [facility] [address] [place] [address] Organization [facility] Care Team Providers Care Nurse Midwife Name Role Phone NO FAMILY DOCTOR, NO FAMILY DOCTOR Unavailable Unavailable OVIDIO CHAPA Unavailable Unavailable Khris NURSING STUDENT - Cortez LARSON Primary Care Provid er CORTEZ PINEDO Primary Care Unavailable BENJAMIN COMER Attending Unavailable Cortez Pinedo Unavailable Shahzad Ayala Unavailable Unavailable Khris NURSING STUDENT.Cortez LARSON Primary Care Provider Cortez Pinedo Unavailable Unavailable Unavailable Khris NURSING STUDENT.Cortez LARSON Primary Care Provider Khris NURSING STUDENT.Cortez LARSON Primary Care Provider CORTEZ PINEDO Referring Unavailable CORTEZ PINEDO Primary Care Unavailable Khris NURSING STUDENT - Cortez LARSON Primary Care Provid er CORTEZ PINEDO Primary Care Unavailable MARICEL PORTER Referring Unavailable CORTEZ PINEDO [...] (1 source) Ciprofloxacin Drug Allergy 1 Anaphylaxis [facility] (20 sources) Ciprofloxacin; Translations: [Cipro] Drug Allergy 3 Anaphylaxis, Itching, Other (See Comments), Nausea And Vomiting [facility] (1 source) Ciprofloxacin Drug Allergy Unknown [facility] (20 sources) Ciprofloxacin; Translations: [CIPROFLOXACIN IN 5 % DEXTROSE] Drug Allergy 3 Itching, Other: See Comments [facility] (20 sources) Sulfamethoxazole / Trimethoprim; Translations: [SULFAMETHOXAZOLE-TR IMETHOPRIM] Drug Allergy 8 Diarrhea, Vomiting, Nausea And Vomiting [facility] Medications Current Medications Medication Drug Class(es) Dates [...] 12-21-2022 13:54-0400 Body temperature 97.9 [degF] Nurse [place] Work Phone: [facility] 12-21-2022 13:54-0400 Diastolic blood pressure 68 mm[Hg] Nurse [place] Work Phone: [facility] 12-21-2022 13:54-0400 Systolic blood pressure 118 mm[Hg] Nurse [place] Work Phone: [facility] 08-27-2022 11:14-0400 Body height 162.6 cm Geno Sheets DO Work Phone: [facility] 08-27-2022 11:14-0400 Body temperature 98.2 [degF] Geno Sheets DO Work Phone: [facility] 08-27-2022 11:14-0400 Body weight 78.93 kg Geno Sheets DO Work Phone: [facility] 08-27-2022 11:14-0400 Diastolic blood pressure 60 mm[Hg] Geno Sheets DO Work Phone: [facility] 08-27-2022 11:14-0400 Heart rate 68 /min Geno Sheets DO Work Phone: [facility] 08-27-2022 11:14-0400 SaO2% (BldA) [Mass fraction] 97 % Geno Sheets DO Work Phone: [facility] 08-27-2022 11:14-0400 Systolic blood pressure 110 mm[Hg] Geno Sheets DO Work Phone: [facility] 10-11-2021 13:43-0400 Body height 162.6 cm Cortez Khris NURSING STUDENT.RECEP Work Phone: [facility] 10-11-2021 13:43-0400 Body temperature 98.2 [degF] Cortez Khris NURSING STUDENT.RECEP Work Phone: [facility] 10-11-2021 13:43-0400 Body weight 73.12 kg Cortez Khris NURSING STUDENT.RECEP Work Phone: [facility] 10-11-2021 13:43-0400 Diastolic blood pressure 60 mm[Hg] Cortez Khris NURSING STUDENT.RECEP Work Phone: [facility] 10-11-2021 13:43-0400 Heart rate 70 /min Cortez Khris NURSING STUDENT.RECEP Work Phone: [facility] 10-11-2021 13:43-0400 Respiratory rate 18 /min Cortez Khris NURSING STUDENT.RECEP Work Phone: [facility] 10-11-2021 13:43-0400 SaO2% (BldA) [Mass fraction] 100 % Cortez Khris NURSING STUDENT.RECEP Work Phone: [facility] 10-11-2021 13:43-0400 Systolic blood pressure 92 mm[Hg] Cortez Khris SAUCEDORECEP Work Phone: [facility] 08-02-2021 15:43-0400 Body height 162.56 cm Cortez Pinedo Work Phone: [facility] Work Phone: 08-02-2021 15:43-0400 Body mass index (BMI) [Ratio] 29.18 kg/m2 Cortez Pinedo Work Phone: [facility] Work Phone: 08-02-2021 15:43-0400 Body surface area Derived from formula 1.83 m2 Cortez Rick Khris Work Phone: [facility] Work Phone: 08-02-2021 15:43-0400 Body weight 77.11 kg Cortez Pinedo Work Phone: [facility] Work Phone: 05-24-2021 14:26-0400 Body height 162.6 cm Katerin Simmons MD Work Phone: [facility] 05-24-2021 14:26-0400 Body temperature 98.29 [degF] Katerin Simmons MD Work Phone: [facility] 05-24-2021 14:26-0400 Body weight 77.11 kg Katerin Simmons MD Work Phone: [facility] 05-24-2021 14:26-0400 Diastolic blood pressure 70 mm[Hg] Katerin Simmons MD Work Phone: [facility] 05-24-2021 14:26-0400 Heart rate 75 /min Katerin Simmons MD Work Phone: [facility] 05-24-2021 14:26-0400 Respiratory rate 18 /min Katerin Simmons MD Work Phone: [facility] 05-24-2021 14:26-0400 SaO2% (BldA) [Mass fraction] 99 % Katerin Simmons MD Work Phone: [facility] 05-24-2021 14:26-0400 Systolic blood pressure 110 mm[Hg] Katerin Simmons MD Work Phone: [facility] 02-26-2021 06:34-0500 Diastolic blood pressure 76 mm[Hg] Cortez Khris Other Phone: [facility] 02-26-2021 06:34-0500 Heart rate 76 /min Cortez Khris Other Phone: [facility] 02-26-2021 06:34-0500 Respiratory rate 20 /min Cortez Khris Other Phone: [facility] 02-26-2021 06:34-0500 SaO2% (BldA) [Mass fraction] 100 % Cortez Khris Other Phone: [facility] 02-26-2021 06:34-0500 Systolic blood pressure 130 mm[Hg] Cortez Khris Other Phone: [facility] 08-12-2020 17:01-0400 Body height 162.6 cm Benjamin Comer MD Work Phone: [employer] Work Phone: 08-12-2020 17:01-0400 Body mass index (BMI) [Ratio] 27.46 kg/m2 Benjamin Comer MD Work Phone: [employer] Work Phone: 08-12-2020 17:01-0400 Body temperature 98.49 [degF] Benjamin Comer MD Work Phone: [employer] Work Phone: 08-12-2020 17:01-0400 Body weight 72.58 kg Benjamin Comer MD Work Phone: [employer] Work Phone: 08-12-2020 17:01-0400 Diastolic blood pressure 60 mm[Hg] Benjamin Comer MD Work Phone: [employer] Work Phone: 08-12-2020 17:01-0400 Heart rate 91 /min Benjamin Comer MD Work Phone: [employer] Work Phone: 08-12-2020 17:01-0400 Respiratory rate 14 /min Benjamin Comer MD Work Phone: [employer] Work Phone: 08-12-2020 17:01-0400 SaO2% (BldA) [Mass fraction] 97 % Benjamin Comer MD Work Phone: [employer] Work Phone: 08-12-2020 17:01-0400 Systolic blood pressure 128 mm[Hg] Benjamin Comer MD Work Phone: [employer] Work Phone: Encounters Encounter Date Encounter Type Care Provider Facility Start: 04-08-2023 Telephone encounter Cortez Pinedo APRN.RECEP Work Phone: [facility] Procedures Date Procedure Procedure Detail Performing Clinician Start: 01-30-2023 Lipid 1996 panel - S dorcas or Plasma Cortez Pinedo APRN.RECEP Work Phone: Start: 12-21-2022 INFLUENZA VACCINE, A GE 6 MO - 64 YR, QUADRIVALENT (AFLURIA, FLULAVAL, FLUZONE) Geno C Sheets DO Work Phone: Start: 04-27-2022 Mri spinal canal lum bar w/o contrast material Danielle Valadez NURSING STUDENT - [employer] Work Phone: Start: 04-27-2022 Ct pelvis w/o contra st material Danielle Valadez NURSING STUDENT - [employer] Work Phone: Start: 04-17-2022 End: 04-17-2022 Radex hip unilateral with pelvis 2-3 views Ned Borrego DO Work Phone: Start: 03-06-2022 Mammography Cortez chang NURSING STUDENT.RECEP Work Phone: Start: 02-27-2022 INFLUENZA VACCINE QUADRIVALENT 6 MO - 64 YRS IM Geno C Sheets DO Work Phone: Start: 02-27-2022 PFIZER-BIONTECH COVI D-19 BIVALENT BOOSTER VACCINE, AGE 12+ YR Geno C Sheets DO Work Phone: Start: 12-27-2021 Lipid 1996 panel - S dorcas or Plasma Cortez Pinedo NURSING STUDENT.RECEP Work Phone: Start: 02-26-2021 End: 02-26-2021 EKG impression Shahzad Ayala Start: 02-23-2021 Mri any jt lower ext rem w/o contrast matrl Danielle Valadez APRN - [employer] Work Phone: Start: 08-12-2020 Ct abdomen & pelvis w/o contrast material Benjamin Comer MD Work Phone: Start: 03-04-2020 Colonoscopy Katerin reis MD Work Phone: Start: 02-04-2020 Mammography Katerin reis MD Work Phone: Plan of Treatment Date Care Activity Detail Author Start: 04-01-2028 Urine microalbumin profile [facility] Start: 01-31-2028 Lipid 1996 panel - S dorcas or Plasma Lipid Screening [facility] Start: 01-31-2028 Lipid panel Lipid Screening [facility] Start: 12-27-2026 Lipid 1996 panel - S dorcas or Plasma Lipid Screening [facility] Start: 12-27-2026 LIPID SCREEN LIPID SCREEN [facility] Start: 03-03-2026 Diabetes Screening Diabetes Screenin g [facility] Start: 01-30-2026 Diabetes Screening Diabetes Screenin g [facility] Start: 08-19-2025 DIABETES SCREEN DIABETES SCREEN [facility] Start: 08-19-2025 Diabetes Screening Diabetes Screenin g [facility] Start: 03-04-2025 Colonoscopy Colonoscopy [facility] Start: 03-04-2025 Colorectal Cancer Screening Colorectal Cancer Screening [facility] Start: 03-04-2025 Screening for malign ant neoplasm of colon [facility] Start: 01-06-2025 LIPID SCREEN LIPID SCREEN [facility] Start: 12-27-2024 DIABETES SCREEN DIABETES SCREEN [facility] Start: 03-12-2024 Screening for malign ant neoplasm of breast Mammogram Screening [facility] Start: 03-06-2024 Screening for malign ant neoplasm of breast Breast cancer screen [facility] Start: 09-04-2023 Hepatitis B Vaccine (3 of 3 - 19+ 3-dose series) Hepatitis B Vaccine (3 of 3 - 19+ 3-dose series) [facility] Start: 03-06-2023 Mammography [facility] Start: 12-14-2022 DIABETES SCREEN DIABETES SCREEN [facility] Start: 10-26-2022 Covid-19 Vaccine ( season) Covid-19 Vaccine ( season) [facility] Start: 10-26-2022 Influenza vaccination [facility] Start: 10-11-2022 COVID-19 VACCINE (4 - Booster for Pfizer series) COVID-19 VACCINE (4 - Booster for Pfizer series) [facility] Immunizations Immunization Date Immunization Notes Care Provider Pilar young 04-03-2023 hepatitis B vaccine, adult dosage [facility] Work Phone: [facility] 03-06-2023 hepatitis B vaccine, adult dosage [facility] Work Phone: [facility] 12-21-2022 influenza, injectabl e, quadrivalent, contains preservative Nurse Mary Work Phone: [facility] 02-27-2022 COVID-19 booster vaccine, age 12+ yr, bivalent (PFIZER-BIONTECH) Nurse Mary Work Phone: [facility] 02-27-2022 influenza, injectabl e, quadrivalent, contains preservative Nurse Hernandez Work Phone: [facility] 02-27-2022 influenza virus vacc ine, unspecified formulation Cortez Pinedo APRN.RECEP Work Phone: [facility] 04-04-2021 COVID-19 vaccine, ag e 12+ yr (PFIZER-BIONTECH - [facility]) Katerin Simmons MD Work Phone: [facility] 12-03-2020 influenza, injectabl e, quadrivalent, preservative free Cortez Pinedo [facility] Work Phone: 07-02-2020 Pfizer-BioNTech COVI D-19 Vacc 30 MCG/0.3ML Intramuscular Suspension Cortez Pinedo Work Phone: [facility] DO Work Phone: 06-11-2020 Pfizer-BioNTech COVI D-19 Vacc 30 MCG/0.3ML Intramuscular Suspension Cortez Pinedo Work Phone: [facility] DO Work Phone: 12-15-2019 influenza, injectabl e, quadrivalent, contains preservative Katerin Simmons MD Work Phone: [facility] 12-15-2019 zoster vaccine recombinant Cortez Pinedo APRN.RECEP Work Phone: [facility] 01-03-2016 influenza, injectabl e, quadrivalent, contains preservative Katerin Simmons MD Work Phone: [facility] 01-03-2016 influenza, seasonal, injectable, preservative free Katerin Simmons MD Work Phone: [facility] 12-13-2014 influenza, seasonal, injectable Katerin Simmons MD Work Phone: [facility] 12-15-2013 influenza, seasonal, injectable Katerin Simmons MD Work Phone: [facility] 02-11-2009 novel influenza-H1N1 -09, preservative-free, injectable Cortez Pinedo Work Phone: [facility] Payers Date Payer Category Payer Unknown [id number] 2020 Unknown LACI O SED KACY O [id number] 2020-Present [phone] [address] [place] [address] [id number] 2020 Unknown LACI O SED KACY MCO 1970 2020-Present [phone] [address] [place] [address] 1971 [id number] 2020 Unknown GENERIC MCO GENE ASTRID MCO WC [id number] 2020-Present [phone] [address] [place] [address] [id number] 2020 Unknown [id number] 2020 Unknown 2020 [id number] 2020 Unknown [id number] 2016 Unknown [id number] 2016 Unknown 2016 Unknown DANNIE DOYLE PPO [id number] 2016-Present [phone] [address] [place] [address] PPO [id number] 1970 Unknown [id number] 1970 Unknown [id number] 1969 Unknown [id number] 1969 Unknown [id number] 1969 Unknown [id number] 1969 Unknown [id number] 1969 Unknown [id number] 1969 Unknown [id number] 1969 Unknown [id number] 1969 Unknown [id number] Social History Date Type Detail Facility Start: 09-25-2017 End: 08-12-2020 [facility] Former smoker [employer] Phone: End: 01-23-2015 History of tobacco use Current smoker [employer] End: 01-23-2015 History of tobacco use Cigarette Smoker [employer] Start: 09-25-2017 End: 08-12-2020 Tobacco use and exposure Never used [employer] Start: 08-12-2020 End: 03-13-2023 Alcohol intake Ex-drinker (finding) [employer] Phone: Start: 08-12-2020 Alcohol Comment none since 2019 [employer] Phone: Start: 1970 Sex Assigned At Not on file M [facility] Work Phone: Start: 05-14-2021 End: 12-27-2021 Exposure to SARS-CoV-2 (event) Not sure [employer] Tobacco smoking consumption unknown [facility] Start: 07-16-2013 End: 08-19-2022 Cigarettes smoked current (pack per day) - Reported 0.5 [facility] Start: 05-01-2019 History SDOH Alcohol Comment occ [facility] Start: 07-02-2016 Tobacco Comment Vapor Cigarett e, quit cigarettes 12/2015. [facility] Start: 1970 Sex Assigned At Female C [facility] Start: 08-19-2022 End: 08-27-2022 Tobacco use panel [facility] National Score (1-10 0), lower number is lower risk 63 [facility] Start: 11-18-2020 Gender identity Identifies as female gender (finding) [facility] Start: 11-18-2020 Sexual orientation Heterosexual (jones gagnon) [facility] Medical Equipment Procedure Code Equipment Code Equipment Origin al Text Equipment Identifier Dates [id number] [place] [id number] Start: 11-26-2012 Clinical Notes 08-12-2020 to [...] Borrero MA ----- Message from Cortez Pinedo APRN.RECEP sent at 04/08/2023 12:37 PM EST ----- [...] nonobstructing renal stones. documented in this encounter [facility] 04-03-2023 Note HNO ID: [id number] Author: KINJAL FINCH RT(R) Service: Radiology Author Type: Ct Technician Type: Progress Notes Filed: 04/03/2023 11:21 Note [...] PATIENT PRESENTS WITH AN IMPLANTABLE OR ATTACHED SANDBLAST OPERATOR: No ALLERGIES: Reviewed and unchanged CONTRAST ALLERGY: [...] DATE: April 03, 2023 TIME: 11:20 AM [facility] 04-03-2023 History of Presen t illness Narrative [...] PATIENT PRESENTS WITH AN IMPLANTABLE OR ATTACHED SANDBLAST OPERATOR: No ALLERGIES: Reviewed and unchanged CONTRAST ALLERGY: [...] TIME: 11:20 AM documented in this encounter [facility] 03-13-2023 Note HNO ID: [id number] Author: CORTEZ PINEDO APRN.RECEP Service: ? Author Type: Nurse Practitioner Type: Progress Notes Filed: 03/13/2023 12:17 Note Text: This note was created using [employer]. Subjective Tresa Garay is a 52 year [...] RELIEF) 50 mcg/actuation nasal spray Use 1 Dania in each nostril once daily. 15 mL [...] Moving/speaking slowly (other (more content not included)... [facility] 03-12-2023 Note HNO ID: [id number] Author: RENATO LOVELL RT(Beltran) Service: ? Author [...] RT Kim(Beltran) March 12, 2023 3:10 PM [facility] 03-06-2023 Note HNO ID: [id number] Author: ILYA BORRERO MA Service: ? Author Type: Infantry Unit Leader Type: Progress Notes Filed: 03/06/2023 14:13 Note Text: Patient has been identified by name and date of : Yes Tresa is here for an injection of hepatitis B Dose: 1 ml Route: Intramuscular Given without incident. 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 The date due for the next injection is 1 month. Ilya Borrero MA [facility] 03-04-2023 Note HNO ID: [id number] Author: KHADRA RICHEY LPN Service: ? Author Type: LICENSED NURSE Type: Progress Notes Filed: 03/04/2023 12:16 Note Text: TRANSITIONAL CARE MANAGEMENT (TCM) COMMUNITY MONITORING PROGRAM - [place] Provider Action/FYI: Pt states she is doing well, denies worsening pain. Discomfort still remains. She did reach out to the urologist office this morning and left a voicemail requesting an appointment. Denies the need for PCP appt at this time. Taking antibiotic without difficulty. Instructed to call the office with any further questions or concerns. SUMMARY: Pt discharged from [facility] on 03/03/2023. Admitted for: Acute pyelitis Risk score: 13 Patient seen Inpatient RYANNE Visit? N/A. Patient seen ICARE Program? N/A. Contact made with patient: Yes Hi my name is Khadra Richey LPN and I am calling from the [facility] on behalf of your PCP, Cortez Pinedo APRN.RECEP I understand you were recently in the [...] like to speak with a social work water team leader to help give you support for any [...] (or call on the way if possible). [facility] 03-04-2023 Note Patient Outreach (AG INTMLW) TRESA GARAY ([id number]) 1970 F Date Time Provider Department 03/04/23 KHADRA RICHEY AGINTMLW During your visit today, we recorded the following information about you: Khadra Richey LPN 03/04/2023 12:16 PM Signed TRANSITIONAL CARE MANAGEMENT (TCM) COMMUNITY MONITORING PROGRAM - [place] Provider Action/FYI: Pt states she is doing well, denies worsening pain. Discomfort still remains. She did reach out to the urologist office this morning and left a voicemail requesting an appointment. Denies the need for PCP appt at this time. Taking antibiotic without difficulty. Instructed to call the office with any further questions or concerns. SUMMARY: Pt discharged from [facility] on 03/03/2023. Admitted for: Acute pyelitis Risk score: 13 Patient seen Inpatient RYANNE Visit? N/A. Patient seen ICARE Program? N/A. Contact made with patient: Yes Hi my name is Khadra Richey LPN and I am calling from the [facility] on behalf of your PCP, Cortez Pinedo APRN.RECEP I understand you were recently in the [...] like to speak with a social work water team leader to help give you support for any [...] Date: 03/04/2023 N (more content not included)... [facility] 03-02-2023 Note HNO ID: [id number] Author: DARIUS VELASQUEZ RN Service: ? Author Type: Registered Nurse Type: Nursing Progress Note Filed: 03/02/2023 09:16 Note Text: EKG Sinus bradycardia otherwise normal ECG [facility] 01-30-2023 Miscellaneous Notes Called pt with results let her know she needs to repeat labs in 3 months. Pt stated her muscles are feeling a little better Ilya Borrero MA ----- Message from Cortez Pinedo APRN.RECEP sent at 01/30/2023 12:49 PM EST ----- Inflammation markers normal Lipids at goal Tsh wnl cmp unremarkable WBC now normal. Plt slightly elevated will continue routine monitoring. Will recheck in 3 months documented in this encounter [facility] 01-28-2023 Note HNO ID: [id number] Author: Cortez Pineod APRN.RECEP Service: ? Author Type: Nurse Practitioner Type: Progress Notes Filed: 01/29/2023 6:58 AM Note Text: This note was created using [employer]. Wally Deanfish Garay is a 52 year [...] counseling for this. She had gone to [facility] in the past for counseling. Heartburn: she is taking lansoprazole daily for management. Kidney stones: reports having surgery on her right kidney in her mid 40s. States she also has stones. She sees Dr Glover in [place] for mangement. She sees her every 6 months. Preventative: hx hysterectomy in her 40s reports due to endometriosis. 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 She reports having [...] RELIEF) 50 mcg/actuation nasal spray Use 1 Dania in each nostril once daily. 15 mL [...] about different t (more content not included)... [facility] 01-16-2023 Miscellaneous Notes Last OV 08/27/22 Apt [...] Ilya Borrero MA documented in this encounter [facility] 12-21-2022 Note HNO ID: [id number] Author: Kaci Connor MA Service: ? Author Type: Infantry Unit Leader Type: Progress Notes Filed: 12/21/2022 1:56 PM Note Text: Immunizations were given as ordered. Vaccination information sheet(s) given. Kaci Connor MA [facility] 12-21-2022 History of Presen t illness Narrative Immunizations were given as ordered. Vaccination information sheet(s) given. Kaci Connor MA documented in this encounter [facility] 12-17-2022 Miscellaneous Notes Called pt to see what refill she needed looks like she should have enough to get her till February Ilya Borrero MA ----- Message from Angela Doe sent at 12/17/2022 3:33 PM EDT ----- Regarding: FW: [address] [place] [address]/Mary/Cortez Pinedo APRN.RECEP/Patient requests a call back - anxiety medication ----- Message ----- From: Yessi Mays Sent: 12/17/2022 3:18 PM EDT To: Harsh Soni Zouxiu Pool; # Subject: [address] [place] [address]/Mary/Cortez Pinedo APRN.RECEP# Subject Line Format: Medicine / [Provider Name] / [Issue] Patient has been identified by name and Date of (Y/N): Y Patient: Tresa Garay Date of : 1970 Provider for this encounter: Cortez Pinedo APRN.CNP Reason for the call/escalation: Patient requests a call back - anxiety medication . Was Patient Referred to [facility]/Seek Emergency Treatment (Y/N): N Did Patient Agree (Y/N): N/A Was An Attempt Made To Transfer The Patient To The Office (Y/N): N Were You Able To Reach Someone At The Office (Y/N): N/A If Yes - Patient Was Transferred To (Caregivers Name): N/A If No - Which [facility] Leadership Nurse Midwife Did You Speak With Regarding This Patient: N/A Was an appointment scheduled (Y/N): N/A Reason patient was requesting visit (RFV/signs and symptoms/diagnosis) : N/A Person calling if other than patient: N Return call to if other than patient: N Best contact number: [phone] Thank you, Yessi Mays December 17, 2022 3:16 PM documented in this encounter [facility] 09-13-2022 Miscellaneous Notes Pharmacy requesting refills as follows: Last Office Visit 08/27/22. Last Refill 02/27/22. Requested Prescriptions Pending Prescriptions Disp Refills lansoprazole (PREVACID) 30 mg capsule [Pharmacy Med Name: LANSOPRAZOLE DR CAPS 30MG] 90 capsule 3 Sig: TAKE 1 CAPSULE DAILY Please review and advise. Falguni Tyler MA documented in this encounter [facility] 08-27-2022 Note HNO ID: [id number] Author: Geno Archer, DO Service: ? Author [...] RELIEF) 50 mcg/actuation nasal spray Use 1 Dania in each nostril once daily. 15 mL [...] and dry. F (more content not included)... [facility] 08-27-2022 History of Presen t illness Narrative [...] RELIEF) 50 mcg/actuation nasal spray Use 1 Dania in each nostril once daily. 15 mL [...] Judgment normal. Results CT CHEST WO IVCON (Acc#[id number]) (Order [id number]) Patient Info Patient Name Sex Tresa Garay ([id number]) Female 1970 08/19/2022 3:11 AM - Radiology, Oru In Impression IMPRESSION: No CT evidence of acute abnormality. Housesmith: PSCB Transcribe Date/Time: Aug 19 2022 3:05A Dictated by : MARY DICKEY MD This examination was interpreted and the report reviewed and electronically signed by: MARY DICKEY MD on Aug 19 2022 3:09AM EST Results-Findings * * *Final Report* * * DATE OF EXAM: Aug 19 2022 1:50AM [facility] 0541 - CT CHEST WO IVCON / [...] calcification at the right kidney upper pole. Chief Merchandising Officer (topogram) images: No additional findings. Result History CT CHEST WO IVCON (Order #[id number]) on 08/19/2022 - Order Result History Report Result Information Status Provider Status Final result (08/19/2022 3:11 AM) Ordered Exam Performed Date and Time 08/19/2022 1:50 AM Resulting Agency [facility] [address] [facility]. [facility] [id number] Patient Images Get Images ASSESSMENT/PLAN: 1. Right-sided [...] Geno Archer DO documented in this encounter [facility] 08-21-2022 Note Patient Outreach (AG FAMPLE) TANISHAALEXTRESA A ([id number]) 1970 F Date Time Provider Department 08/21/22 CORTEZ PINEDO During your visit today, we recorded the following information about you: Falguni Tyler MA 08/21/2022 11:20 AM Signed ED Follow Up: Patient discharged from [facility] ED on 08/18/22. 1. How are you [...] you able to contact the office or almond blancher hand provider prior to your ED visit? No [...] RELIEF) 50 mcg/actuation nasal spray Use 1 Dania in each nostril once daily. - Melatonin 5 mg tab Take 5 mg by mouth daily at bedtime. Problem List As Of Date 08/21/2022 Noted Resolved UPJ (ureteropelvic junction) obstruction [N13.5]11/26/2012 Depressive disorder [F32.A] History of kidney stones [Z87.442] 08/27/2016 Pulmonary nodules [R91.8] 04/01/2018 Encounter Status:Closed by FALGUNI TYLER on 08/21/22 [facility] 08-21-2022 Note HNO ID: [id number] Author: Falguni Tyler MA Service: ? Author Type: Infantry Unit Leader Type: Progress Notes Filed: 08/21/2022 11:20 AM Note Text: ED Follow Up: Patient discharged from [facility] ED on 08/18/22. 1. How are you [...] you able to contact the office or almond blancher hand provider prior to your ED visit? No 5. Is there anything else I can do for you today? No Falguni Tyler MA [facility] 08-21-2022 History of Presen t illness Narrative ED Follow Up: Patient discharged from [facility] ED on 08/18/22. 1. How are you [...] you able to contact the office or almond blancher hand provider prior to your ED visit? No 5. Is there anything else I can do for you today? No Falguni Tyler MA documented in this encounter [facility] 08-08-2022 Miscellaneous Notes pharmacy electronically requesting refills [...] Kaci Connor MA documented in this encounter [facility] 03-07-2022 Miscellaneous Notes Called pt left VM with results Ilya Borrero MA ----- Message from Cortez Pinedo APRN.RECEP sent at 03/06/2022 4:19 PM EST ----- Mammogram negative IMPRESSION IMPRESSION: NEGATIVE There is no mammographic evidence of malignancy. A 1 year screening mammogram is recommended. documented in this encounter [facility] 03-06-2022 Miscellaneous Notes March 06, 2022 PID: [id number] Tresa ADeni Garay [address] [place] [address] [place] [id number] Dear Deni Garay, We are pleased to [...] report will be kept on file at [facility] as part of your permanent medical record and are available for your continuing care. Thank you for allowing us to help in meeting your health care needs. Sincerely, Dr. Christopher Interpreting Radiologist [facility] (Normal over 40) documented in this encounter [facility] 02-27-2022 Miscellaneous Notes Last O V10/11/21 Labs [...] order needs placed documented in this encounter [facility] 01-29-2022 Miscellaneous Notes Last OV 10/11/21 Labs [...] Ilya Borrero MA documented in this encounter [facility] 01-01-2022 Miscellaneous Notes Called pt let her know the results Ilya Borrero MA ----- Message from Cortez Pinedo APRN.RECEP sent at 12/30/2021 7:56 PM EDT ----- Vit d wnl Hiv negative documented in this encounter [facility] 12-26-2021 Miscellaneous Notes Called pt let her know orders were placed Ilya Borrero MA Orders placed Patient's 10/11/21 lab orders have and patient would like to come tomorrow to complete them. Please file new orders. Thanks! Kaci Connor MA documented in this encounter [facility] 10-11-2021 Instructions Cortez Pinedo APRN.RECEP - 10/11/2021 2:42 PM EDT Assessment and Plan ASSESSMENT/PLAN: 1. Wellness examination - ICD9: V70.0, ICD10: Z00.00 (primary diagnosis) - Counseled on healthy diet and regular exercise - Calcium intake with supplements or by diet of 1000 mg/day for under 50, 4542-6243 mg/day for 50+ - Mammogram ordered - [...] C AB IA W/CONF SCRN Cortez Pinedo APRN.RECEP documented in this encounter [facility] 10-11-2021 History of Presen t illness Narrative This note was created using [employer]. Subjective Tresafish Garay is a 51 year [...] has stones. She sees Dr Glover in [place] for mangement. She sees her every 6 months. Preventative: hx hysterectomy in her 40s reports due to endometriosis. 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 She reports having [...] RELIEF) 50 mcg/actuation nasal spray Use 1 Dania in each nostril once daily. 15 mL [...] diet of 1000 mg/day for under 50, 7039-3156 mg/day for 50+ - Mammogram ordered - [...] C AB IA W/CONF SCRN Cortez Pinedo APRN.RECEP documented in this encounter [facility] 10-04-2021 Miscellaneous Notes Last OV 05/24/21 Apt [...] Ilya Borrero MA documented in this encounter [facility] 09-22-2021 Miscellaneous Notes Patient requesting refills: Last [...] Jeanette Bowen MA documented in this encounter [facility] 07-25-2021 Miscellaneous Notes Pharamcy requesting refills as follows: Last Office Visit 05/24/21 nov 10/02/21. Last Refill 06/22/21. Pending Prescriptions Disp Refills BUPROPION HCL SR 150 MG TABLET,12 HR SUSTAINED-RELEASE 90 tablet 0 Sig: TAKE 1 TABLET BY MOUTH TWICE DAILY ARLEEN: Yes Please review and advise. Falguni Tyler MA documented in this encounter [facility] 05-25-2021 History of Presen t illness Narrative [...] Information Onset Date: 08/12/20 PT Insurance Information: [facility] claim # [id number] Total # of Visits to Date: 10 [...] for follow up Comments: Contacted pt Re: [facility] expiration date and plan for D/C this date secondary to doing well in regards to pain and functionality. Pt agreeable to D/C from PT at this time to cont indep with HEP as able. Signature: documented in this encounter [employer] Phone: 05-24-2021 Note HNO ID: [id number] Author: Katerin Simmons MD Service: ? Author Type: Physician Type: Progress Notes Filed: 05/24/2021 3:09 PM Note Text: This note was created using [employer]. Subjective Tresa Garay is a 51 year [...] RELIEF) 50 mcg/actuation nasal spray Use 1 Dania in each nostril once daily. 15 mL [...] Tympanic membrane n (more content not included)... [facility] 05-24-2021 Instructions Katerin Simmons MD - [...] fail to improve. documented in this encounter [facility] 05-24-2021 History of Presen t illness Narrative This note was created using [employer]. Wally Tresafish Garay is a 51 year [...] RELIEF) 50 mcg/actuation nasal spray Use 1 Dania in each nostril once daily. 15 mL [...] which included preparing to see the patient, [id number] patient care, completing clinical documentation and obtaining and/or reviewing separately obtained history. documented in this encounter [facility] 05-23-2021 History of Presen t illness Narrative [...] Information Onset Date: 08/12/20 PT Insurance Information: [facility] claim # [id number] Total # of Visits to Date: 10 [...] up Comments: Signature: documented in this encounter [facility] [employer] Phone: 05-09-2021 History of Presen t illness Narrative [facility] Treatment Note Date: [...] Information Onset Date: 08/12/20 PT Insurance Information: [facility] claim # [id number] Total # of Visits to Date: 9 [...] postural awareness requiring <25% VC's with exercises skilled nursing goals Time Frame for long term care pharmacist goals : 4-6 weeks long term care pharmacist goal 1: The pt will have a increase in LEFS score >/=60/80 points in order to increase functional activity tolerance long term care pharmacist goal 2: The pt will demo improved R LE strength >/= 4+/5 and core strength >/=fair in order to stand and ambulate prolonged periods with decreased pain/limitations at PLOF skilled nursing goal 3: The pt will be indep/compliant with HEP in order to self manage symptoms upon D/C long term care pharmacist goal 4: The pt will demo improved lumbar AROM >/=75% ea plane in order to increase ease with household and work rleated duties including cleaning long term care pharmacist goal 5: The pt will demo improved [...] 15 1 Signature: documented in this encounter [facility] [employer] Work Phone: 05-04-2021 History of Presen t illness Narrative [facility] Treatment Note Date: [...] Information Onset Date: 08/12/20 PT Insurance Information: [facility] claim # [id number] Total # of Visits to Date: 8 [...] postural awareness requiring <25% VC's with exercises long term care pharmacist goals Time Frame for skilled nursing goals : 4-6 weeks long term care pharmacist goal 1: The pt will have a increase in LEFS score >/=60/80 points in order to increase functional activity tolerance skilled nursing goal 2: The pt will demo improved R LE strength >/= 4+/5 and core strength >/=fair in order to stand and ambulate prolonged periods with decreased pain/limitations at PLOF long term care pharmacist goal 3: The pt will be indep/compliant with HEP in order to self manage symptoms upon D/C long term care pharmacist goal 4: The pt will demo improved lumbar AROM >/=75% ea plane in order to increase ease with household and work rleated duties including cleaning long term care pharmacist goal 5: The pt will demo improved [...] Time Out Total Minutes Units Ther ex (26550) 2991 4786 32 2 Manual Therapy (41739) 0055 5122 15 1 Signature: [facility]: 05-02-2021 History of Presen t illness Narrative [facility] Treatment Note Date: [...] Information Onset Date: 08/12/20 PT Insurance Information: [facility] claim # [id number] Total # of Visits to Date: 7 [...] postural awareness requiring <25% VC's with exercises long term care pharmacist goals Time Frame for long term care pharmacist goals : 4-6 weeks long term care pharmacist goal 1: The pt will have a increase in LEFS score >/=60/80 points in order to increase functional activity tolerance skilled nursing goal 2: The pt will demo improved R LE strength >/= 4+/5 and core strength >/=fair in order to stand and ambulate prolonged periods with decreased pain/limitations at PLOF skilled nursing goal 3: The pt will be indep/compliant with HEP in order to self manage symptoms upon D/C skilled nursing goal 4: The pt will demo improved lumbar AROM >/=75% ea plane in order to increase ease with household and work rleated duties including cleaning skilled nursing goal 5: The pt will demo improved [...] Time Out Total Minutes Units Ther ex (31618) 1105 1138 1128 1150 23 12 2 Manual Therapy (50455) 1128 1138 10 1 Signature: documented in this encounter [facility] Work Phone: 04-27-2021 History of Presen t illness Narrative [facility] Treatment Note Date: 04/27/2021 Patient: Trsea Garay : 1970 Referring Practitioner: Maricel Porter [...] Information Onset Date: 08/12/20 PT Insurance Information: [facility] claim # [id number] Total # of Visits to Date: 6 [...] postural awareness requiring <25% VC's with exercises skilled nursing goals Time Frame for long term care pharmacist goals : 4-6 weeks skilled nursing goal 1: The pt will have a increase in LEFS score >/=60/80 points in order to increase functional activity tolerance long term care pharmacist goal 2: The pt will demo improved R LE strength >/= 4+/5 and core strength >/=fair in order to stand and ambulate prolonged periods with decreased pain/limitations at PLOF skilled nursing goal 3: The pt will be indep/compliant with HEP in order to self manage symptoms upon D/C skilled nursing goal 4: The pt will demo improved lumbar AROM >/=75% ea plane in order to increase ease with household and work rleated duties including cleaning skilled nursing goal 5: The pt will demo improved [...] Time Out Total Minutes Units Ther ex (26074) 2310 8932 45 3 Manual Therapy (10095) 7550 9480 8 1 Signature: documented in this encounter [employer] Phone: 04-25-2021 History of Presen t illness [...] Information Onset Date: 08/12/20 PT Insurance Information: [facility] claim # [id number] Total # of Visits to Date: 5 Plan of Care/Certification Expiration Date: 05/12/21 No Show: 0 Canceled Appointment: 2 Progress Note Counter: 07/06 (PN due 05/12/21)- cx 04/25/21 For today's appointment patient: [x] Cancelled [] Rescheduled appointment [] No-show [] Called pt to remind of next appointment Reason given by patient: [] Patient ill [x] Conflicting appointment- appt with [facility] [] No transportation [] Conflict with work [] No reason given [] Other: [x] Pt has future appointments scheduled, no follow up needed [] Pt requests to be on hold. Reason: If > 2 weeks please discuss with therapist. [] Therapist to call pt for follow up Comments: Signature: documented in this encounter [facility] [employer] Work Phone: 04-11-2021 History of Presen t illness Narrative [facility] Treatment Note Date: [...] Information Onset Date: 08/12/20 PT Insurance Information: [facility] claim # [id number] Total # of Visits to Date: 2 [...] postural awareness requiring <25% VC's with exercises long term care pharmacist goals Time Frame for skilled nursing goals : 4-6 weeks skilled nursing goal 1: The pt will have a increase in LEFS score >/=60/80 points in order to increase functional activity tolerance skilled nursing goal 2: The pt will demo improved R LE strength >/= 4+/5 and core strength >/=fair in order to stand and ambulate prolonged periods with decreased pain/limitations at PLOF skilled nursing goal 3: The pt will be indep/compliant with HEP in order to self manage symptoms upon D/C skilled nursing goal 4: The pt will demo improved lumbar AROM >/=75% ea plane in order to increase ease with household and work rleated duties including cleaning skilled nursing goal 5: The pt will demo improved [...] Time Out Total Minutes Units Ther ex (70978) 1035 1056 21 1 Manual Therapy (94462) 1106 1116 10 1 Moist Hot Pack (06650) 1056 1106 10 0 Signature: documented in this encounter [employer] Phone: 04-04-2021 Note HNO ID: [id number] Author: Cortez Pinedo APRN.RECEP Service: ? Author Type: Nurse Practitioner Type: Progress Notes Filed: 04/04/2021 1:36 PM Note Text: This note was created using [employer]. Subjective Tresa Garay is a 50 year [...] RELIEF) 50 mcg/actuation nasal spray Use 1 Dania in each nostril once daily. 15 mL [...] sounds. No wh (more content not included)... [facility] 01-18-2021 History of Presen t illness Narrative [facility] Treatment Note Date: [...] Information Onset Date: 08/12/20 PT Insurance Information: [facility] claim # [id number] Total # of Visits to Date: 10 [...] in order to increase ease with ADL's skilled nursing goals Time Frame for long term care pharmacist goals : 4-6 weeks skilled nursing goal 1: The pt will have a increase in LEFS score >/=50/80 points in order to increase functional activity tolerance skilled nursing goal 2: The pt will demo improved B hip and lumbar AROM >/=WNL's in order to increase ease with ADL's such as entering and exiting bathtub skilled nursing goal 3: The pt will be indep/compliant with HEP in order to self manage symptoms upon D/C long term care pharmacist goal 4: The pt will demo improved R LE strength >/= 4+/5 and core strength >/=fair in order to safely ambulate with decreased pain/limitations skilled nursing goal 5: The pt will demo improved [...] Time Out Total Minutes Units Manual Therapy (24962) 867 586 38 3 MHP (41544) 926 936 10 0 Estim unattended (68856) 192 505 10 1 Signature: documented in this encounter [facility] Work Phone: 01-11-2021 History of Presen t illness Narrative [facility] Treatment Note Date: [...] Information Onset Date: 08/12/20 PT Insurance Information: [facility] claim # [id number] Total # of Visits to Date: 8 Plan of Care/Certification Expiration Date: 01/20/21 No Show: 0 Canceled Appointment: 0 Progress Note Counter: 10/02- Subjective: Pt reports the MD is going to request a tens unit through [facility] and prescribed pt prednisone that pt [...] in order to increase ease with ADL's skilled nursing goals Time Frame for long term care pharmacist goals : 4-6 weeks long term care pharmacist goal 1: The pt will have a increase in LEFS score >/=50/80 points in order to increase functional activity tolerance long term care pharmacist goal 2: The pt will demo improved B hip and lumbar AROM >/=WNL's in order to increase ease with ADL's such as entering and exiting bathtub long term care pharmacist goal 3: The pt will be indep/compliant with HEP in order to self manage symptoms upon D/C long term care pharmacist goal 4: The pt will demo improved R LE strength >/= 4+/5 and core strength >/=fair in order to safely ambulate with decreased pain/limitations skilled nursing goal 5: The pt will demo improved [...] Time Out Total Minutes Units Ther ex (64861) 841 918 31 2 Manual Therapy (07088) 91 930 12 1 MHP (08717) 930 940 10 0 Estim unattended (83523) 930 940 10 1 Signature: documented in this encounter [facility] [employer] Work Phone: 01-04-2021 History of Presen t illness Narrative [facility] Treatment Note Date: [...] Information Onset Date: 08/12/20 PT Insurance Information: [facility] claim # [id number] Total # of Visits to Date: 6 [...] in order to increase ease with ADL's skilled nursing goals Time Frame for skilled nursing goals : 4-6 weeks skilled nursing goal 1: The pt will have a increase in LEFS score >/=50/80 points in order to increase functional activity tolerance long term care pharmacist goal 2: The pt will demo improved B hip and lumbar AROM >/=WNL's in order to increase ease with ADL's such as entering and exiting bathtub long term care pharmacist goal 3: The pt will be indep/compliant with HEP in order to self manage symptoms upon D/C skilled nursing goal 4: The pt will demo improved R LE strength >/= 4+/5 and core strength >/=fair in order to safely ambulate with decreased pain/limitations skilled nursing goal 5: The pt will demo improved [...] Time Out Total Minutes Units Ther ex (04543) 809 919 28 2 Manual Therapy (70991) 915 929 10 1 MHP (49671) 927 939 10 0 Estim unattended (59704) 922 939 10 1 Signature: documented in this encounter [facility] Work Phone: 01-02-2021 History of Presen t illness Narrative [facility] Treatment Note Date: [...] Information Onset Date: 08/12/20 PT Insurance Information: [facility] claim # [id number] Total # of Visits to Date: 5 [...] in order to increase ease with ADL's long term care pharmacist goals Time Frame for long term care pharmacist goals : 4-6 weeks long term care pharmacist goal 1: The pt will have a increase in LEFS score >/=50/80 points in order to increase functional activity tolerance skilled nursing goal 2: The pt will demo improved B hip and lumbar AROM >/=WNL's in order to increase ease with ADL's such as entering and exiting bathtub long term care pharmacist goal 3: The pt will be indep/compliant with HEP in order to self manage symptoms upon D/C long term care pharmacist goal 4: The pt will demo improved R LE strength >/= 4+/5 and core strength >/=fair in order to safely ambulate with decreased pain/limitations skilled nursing goal 5: The pt will demo improved [...] Time Out Total Minutes Units Ther ex (73004) 847 920 33 2 Manual Therapy (73060) 920 930 10 1 Estim unattended (44099) 930 940 10 1 Hot Pack (88015) 930 940 10 Signature: documented in this encounter [employer] Phone: 12-28-2020 History of Presen t illness Narrative [facility] Treatment Note Date: [...] Information Onset Date: 08/12/20 PT Insurance Information: [facility] claim # [id number] Total # of Visits to Date: 4 [...] in order to increase ease with ADL's skilled nursing goals Time Frame for skilled nursing goals : 4-6 weeks long term care pharmacist goal 1: The pt will have a increase in LEFS score >/=50/80 points in order to increase functional activity tolerance skilled nursing goal 2: The pt will demo improved B hip and lumbar AROM >/=WNL's in order to increase ease with ADL's such as entering and exiting bathtub long term care pharmacist goal 3: The pt will be indep/compliant with HEP in order to self manage symptoms upon D/C skilled nursing goal 4: The pt will demo improved R LE strength >/= 4+/5 and core strength >/=fair in order to safely ambulate with decreased pain/limitations long term care pharmacist goal 5: The pt will demo improved [...] Time Out Total Minutes Units Ther ex (39529) 0848 0918 30 2 Manual Therapy (02177) 18 0928 10 1 Estim Unattended (01014) 927 0938 10 1 Moist Heat (45161) 927 1038 10 0 Signature: documented in this encounter [facility] [employer] Work Phone: 12-26-2020 History of Presen t illness Narrative [facility] Treatment Note Date: [...] Information Onset Date: 08/12/20 PT Insurance Information: [facility] claim # [id number] Total # of Visits to Date: 3 [...] on R LE Exercise 5: TA jose nagel 5 x10 Exercise 6: Hip abd/add 5 [...] in order to increase ease with ADL's long term care pharmacist goals Time Frame for skilled nursing goals : 4-6 weeks skilled nursing goal 1: The pt will have a increase in LEFS score >/=50/80 points in order to increase functional activity tolerance skilled nursing goal 2: The pt will demo improved B hip and lumbar AROM >/=WNL's in order to increase ease with ADL's such as entering and exiting bathtub skilled nursing goal 3: The pt will be indep/compliant with HEP in order to self manage symptoms upon D/C skilled nursing goal 4: The pt will demo improved R LE strength >/= 4+/5 and core strength >/=fair in order to safely ambulate with decreased pain/limitations long term care pharmacist goal 5: The pt will demo improved [...] Time Out Total Minutes Units Ther ex (88608) 842 920 32 2 Manual Therapy (70794) 920 930 10 1 MHP (63103) 930 940 10 0 Signature: documented in this encounter [employer] Work Phone: 12-21-2020 History of Presen t illness Narrative [facility] Outpatient Physical Therapy Treatment Note Date: [...] Information Onset Date: 08/12/20 PT Insurance Information: [facility] claim # [id number] Total # of Visits to Date: 2 [...] in order to increase ease with ADL's long term care pharmacist goals Time Frame for long term care pharmacist goals : 4-6 weeks long term care pharmacist goal 1: The pt will have a increase in LEFS score >/=50/80 points in order to increase functional activity tolerance long term care pharmacist goal 2: The pt will demo improved B hip and lumbar AROM >/=WNL's in order to increase ease with ADL's such as entering and exiting bathtub long term care pharmacist goal 3: The pt will be indep/compliant with HEP in order to self manage symptoms upon D/C skilled nursing goal 4: The pt will demo improved R LE strength >/= 4+/5 and core strength >/=fair in order to safely ambulate with decreased pain/limitations skilled nursing goal 5: The pt will demo improved [...] Time Out Total Minutes Units Ther ex (75678) 0902 0932 30 2 Mois Heat (08915) 0938 0942 10 0 Signature: documented in this encounter [employer] Work Phone: 12-19-2020 History of Presen t illness Narrative [facility] Physical Therapy- [facility] PHYSICAL THERAPY EVALUATION Date: 12/19/2020 Patient Name: Tresa Garay Account: [id number] : 1970 (50 y.o.) Gender: female Referring [...] Ambulation Assistance: Independent Transfer Assistance: Independent Active Internal Grinder Set Up Operator: Yes 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. Prognosis: Fair, Good Discharge Recommendations: Continue to [...] in order to increase ease with ADL's long term care pharmacist goals Time Frame for skilled nursing goals : 4-6 weeks long term care pharmacist goal 1: The pt will have a increase in LEFS score >/=50/80 points in order to increase functional activity tolerance long term care pharmacist goal 2: The pt will demo improved B hip and lumbar AROM >/=WNL's in order to increase ease with ADL's such as entering and exiting bathtub long term care pharmacist goal 3: The pt will be indep/compliant with HEP in order to self manage symptoms upon D/C long term care pharmacist goal 4: The pt will demo improved R LE strength >/= 4+/5 and core strength >/=fair in order to safely ambulate with decreased pain/limitations skilled nursing goal 5: The pt will demo improved B SLS >/=10 seconds to increase ease with ambulation Treatment Initiated : ther ex, hep, modalities PT Individual Minutes Time In: 1015 Time Out: 1115 Minutes: 60 Timed Code Treatment Minutes: 10 Minutes Procedure Minutes: 40 eval 10 MHP Modality Time In Time Out Total Time Units PT Evaluation: Moderate Complexity (16064) 1015 1055 40 1 Ther ex (61270) 1055 1105 10 1 Moist Heat (40631) 1105 1115 10 0 documented in this encounter [employer] Phone: 08-12-2020 History of Presen t illness Narrative Patient here and evaluated. It sounds like she came through [facility]. [facility] at [facility] for right hip pain.Patient had a right hip Workers Compensation injury 08/12/2020. She went on to get x-rays and rehab and had continued hip pain. She had an MRI done at the open MRI through [facility] that did show she had sustained a pubic rami fracture. There was also some variation of the labrum, but due to motion artifact, low quality imaging, and lack of contrast, they could not rule out labral tear. She has gone on to rehab for another six months and has a combination of back pain, hip pain, and groin pain. [facility] Work Phone: documented in this encounter [employer] Phone: evaluation note* Diagnosis Strain of hip adductor muscle, right, initial encounter documented in this encounter [employer] Phone: evaluation note* Diagnosis Acute recurrent pansinusitis- Primary Other acute sinusitis URI, acute Acute upper respiratory infections of unspecified site Encounter for screening for COVID-19 [facility]* Diagnosis Depressive disorder Depressive disorder, not elsewhere classified documented in this encounter [facility] note* Diagnosis Anxiety Anxiety state, unspecified Depressive disorder Depressive disorder, not elsewhere classified documented in this encounter [facility] note* Diagnosis Depressive disorder Depressive disorder, not elsewhere classified Heartburn documented in this encounter [facility] note* Diagnosis Wellness examination- Primary Depressive [...] low risk patient documented in this encounter [facility] note* Diagnosis Screening, anemia, deficiency, iron- [...] low risk patient [facility]* Diagnosis Encounter for immunization- Primary Need for other specified prophylactic vaccination against single bacterial disease documented in this encounter [facility] note* Diagnosis Screening mammogram, encounter for- Primary Depressive disorder Depressive disorder, not elsewhere classified Heartburn Anxiety Anxiety state, unspecified documented in this encounter [facility] note* Diagnosis Back pain, unspecified back location, unspecified back pain laterality, unspecified chronicity documented in this encounter [employer] Phone: evaluation note* Diagnosis Closed bilateral fracture of pubic rami, initial encounter (HCC) documented in this encounter [employer] Phone: evaluation note* Diagnosis Closed bilateral fracture of pubic rami, initial encounter (HCC) documented in this encounter [employer] Phone: evaluation note* Diagnosis Sprain of ligaments of lumbar spine, subsequent encounter documented in this encounter [facility] [employer] Phone: evaluation note* Diagnosis Depressive disorder Depressive disorder, not elsewhere classified documented in this encounter [facility] note* Diagnosis Right-sided chest pain- Primary Acute right-sided thoracic back pain Acute cystitis without hematuria Acute cystitis Anxiety Anxiety state, unspecified Depressive disorder Depressive disorder, not elsewhere classified documented [facility]* Diagnosis Heartburn documented in this encounter [facility] note* Diagnosis Encounter for immunization- Primary Need for other specified prophylactic vaccination against single bacterial disease documented in this encounter [facility] note* Diagnosis Anxiety Anxiety state, unspecified Depressive disorder Depressive disorder, not elsewhere classified documented in this encounter [facility] note* Diagnosis Hydronephrosis, unspecified hydronephrosis type UPJ (ureteropelvic junction) obstruction Other ureteric obstruction Acute pyelitis Acute pyelonephritis without lesion of renal medullary necrosis documented in this encounter [facility] Discharge instructions* Attachments The following attachments cannot be sent through Care Everywhere. * Kidney Stone (Amharic) * Kidney Stone Prevention Diet: General Info (Amharic) documented in [employer] encounter[employer] Phone: reason for referral (narrative)* Diagnostic Procedure Only (Routine) - Pending Review Specialty Diagnoses / Procedures Referred By Contac t Referred To Contact [facility] IMAGING Diagnoses Screening mammogram, encounter for Procedures WOLF SCREENING SCREENING MAMMOGRAPHY BI 2-VIEW BREAST INC CAD Geno Archer DO [address] [place] [address] [facility] [address] [place] [address] Referral ID Status Reason Start Date Expiration Date Visits Requested Visits Authorized [id number] Pending Review Auto-Generat ed Referral 02/27/2022 03/29/2023 1 1 [facility] Summary Purpose Family History No Family History Records FoundNo Family History Records FoundNo Family History Records FoundNo Family History Records FoundNo Family History Records FoundNo Family History Records FoundNo Family History Records FoundNo Family History Records FoundNo Family History Records FoundNo Family History Records Found Advance Directives No Advanced Directives Records FoundDocuments on File Type Date 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 Advance Directive(s) 05/23/2018 10:27 AM [...] RIGHT WO CONTRAST Danielle Valadez APRN - [place] [employer] [address] [place] [address] Referral ID Status Reason Start Date Expiration Date Visits Re quested Visits Authorized [id number] Closed 01/31/2021 03/03/2021 1 1 Specialty Diagnoses / Procedures Referred By Contac t Referred To Contact Radiology Diagnoses Closed bilateral fracture of pubic rami, initial encounter ([facility]) S32.591A, S32.592A (ICD-10-CM) - Closed bilateral fracture of pubic rami, initial encounter ([facility]) Procedures MRI PELVIS WO CONTRAST CHG MRI PELVIS W/O CONTRAST MATERIAL 87813 - CHG MRI PELVIS W/O CONTRAST MATERIAL Danielle Valadez APRN - [place] [employer] [address] [place] [address] Referral ID Status Reason Start Date Expiration Date Visits Re quested Visits Authorized [id number] Closed 2022 2023 1 1 Specialty Diagnoses / Procedures Referred By Contac t Referred To Contact Radiology Diagnoses Closed bilateral fracture of pubic rami, initial encounter ([facility]) S32.591A, S32.592A (ICD-10-CM) - Closed bilateral fracture of pubic rami, initial encounter ([facility]) Procedures CT PELVIS WO CONTRAST Additional Contrast? None CHG CT PELVIS W/O CONTRAST MATERIAL 46156 - CHG CT PELVIS W/O CONTRAST MATERIAL Danielle Valadez, NURSING STUDENT - [place] [employer] [address] [place] [address] Referral ID Status Reason Start Date Expiration Date Visits Re quested Visits Authorized [id number] Closed 2022 2023 1 1 Specialty Diagnoses / Procedures Referred By Contac t Referred To Contact Radiology Diagnoses Sprain of ligaments of lumbar spine, subsequent encounter S33.5XXD (ICD-10-CM) - Sprain of ligaments of lumbar spine, subsequent encounter Procedures MRI LUMBAR SPINE WO CONTRAST CHG MRI SPINAL CANAL LUMBAR W/O CONTRAST MATERIAL 09773 - CHG MRI SPINAL CANAL LUMBAR W/O CONTRAST MATERIAL Danielle Valadez, NURSING STUDENT - [place] [employer] [address] [place] [address] Referral ID Status Reason Start Date Expiration Date Visits Re quested Visits Authorized [id number] Closed 04/17/2022 05/15/2022 1 1 Chief Complaint * [facility] - Rt Hip Pain * Xrays Today * [facility] - Rt Hip Pain * Xrays Today Additional Source Comments INFORMATION SOURCE (unrecogn ized section and content) DATE CREATED AUTHOR AUTHOR'S ORGANIZ ATION 11/25/2018 [facility] DATE CREATED AUTHOR AUTHOR'S ORGANIZ ATION 08/14/2020 [facility] DATE CREATED AUTHOR AUTHOR'S ORGANIZ ATION 11/18/2020 [facility] DATE CREATED AUTHOR AUTHOR'S ORGANIZ ATION 06/02/2021 [facility] DATE CREATED AUTHOR AUTHOR'S ORGANIZ ATION 08/04/2021 [facility] DATE CREATED AUTHOR AUTHOR'S ORGANIZ ATION 08/06/2021 [employer] DATE CREATED AUTHOR AUTHOR'S ORGANIZ ATION 03/08/2022 [facility] DATE CREATED AUTHOR AUTHOR'S ORGANIZ ATION [facility]/2022 [facility] DATE CREATED AUTHOR AUTHOR'S ORGANIZ ATION 04/09/2023 [facility] Reason for Visit (unrecogniz ed section and content) Specialty Diagnoses / Procedures Referred By Contac t Referred To Contact Radiology Diagnoses Strain of hip adductor muscle, right, initial encounter Procedures MRI HIP RIGHT WO CONTRAST Danielle Valadez APRN - [place] [employer] [address] [place] [address] Referral ID Status Reason Start Date Expiration Date Visits Re quested Visits Authorized [id number] Closed 01/31/2021 03/03/2021 1 1 Reason Comments [...] bilateral fracture of pubic rami, initial encounter ([facility]) Procedures MRI PELVIS WO CONTRAST CHG MRI PELVIS W/O CONTRAST MATERIAL 00319 - CHG MRI PELVIS W/O CONTRAST MATERIAL Danielle Valadez APRN - NP [address] [place] [address] Referral ID Status Reason Start Date Expiration Date Visits Re quested Visits Authorized [id number] Closed 2022 2023 1 1 Specialty Diagnoses / Procedures Referred By Angelicaac t Referred To Contact Radiology Diagnoses Closed bilateral fracture of pubic rami, initial encounter (HCC) S32.591A, S32.592A (ICD-10-CM) - Closed bilateral fracture of pubic rami, initial encounter ([facility]) Procedures CT PELVIS WO CONTRAST Additional Contrast? None CHG CT PELVIS W/O CONTRAST MATERIAL 78120 - CHG CT PELVIS W/O CONTRAST MATERIAL Danielle Valadez APRN - [place] [employer] [address] [place] [address] Referral ID Status Reason Start Date Expiration Date Visits Re quested Visits Authorized [id number] Closed 2022 2023 1 1 Specialty Diagnoses / Procedures Referred By Contac t Referred To Contact Radiology Diagnoses Sprain of ligaments of lumbar spine, subsequent encounter S33.5XXD (ICD-10-CM) - Sprain of ligaments of lumbar spine, subsequent encounter Procedures MRI LUMBAR SPINE WO CONTRAST CHG MRI SPINAL CANAL LUMBAR W/O CONTRAST MATERIAL 87048 - CHG MRI SPINAL CANAL LUMBAR W/O CONTRAST MATERIAL Danielle Valadez, NURSING STUDENT - [employer] [address] [place] [address] Referral ID Status Reason Start Date Expiration Date Visits Re quested Visits Authorized [id number] Closed 04/17/2022 05/15/2022 1 1 Reason Comments [...] W/WO CONTRST 1+ BODY REGNS Cortez Pinedo, NURSING STUDENT.RECEP [address] [place] [address] [place] [address] Referral ID Status Reason Start Date Expiration Date V isits Requested Visits Authorized [id number] Closed Auto-Generate d Referral 03/21/2023 02/25/2024 1 1 Ordered Prescriptions (unrec ognized section and content) Scheduled Active and Recently Administ ered Medications (unrecognized section and content) Care Teams (unrecognized sec tion and content) Nurse Midwife Relationship Specialty Start Date End Date Cortez Pinedo NURSING STUDENT - RECEP [address] [place] [address] PCP - General Internal Medicine 08/12/20 Nurse Midwife Relationship Specialty Start Date End Date Cortez Pinedo NURSING STUDENT - RECEP [address] [place] [address] PCP - General Internal Medicine 08/12/20 Nurse Midwife Relationship Specialty Start Date End Date Cortez Pinedo, NURSING STUDENT - RECEP [address] [place] [address] PCP - General Internal Medicine 08/12/20 Nurse Midwife Relationship Specialty Start Date End Date Cortez Pinedo, NURSING STUDENT - RECEP [address] [place] [address] PCP - General Internal Medicine 08/12/20 Nurse Midwife Relationship Specialty Start Date End Date Cortez Pinedo, NURSING STUDENT - RECEP [address] [place] [address] PCP - General Internal Medicine 08/12/20 Nurse Midwife Relationship Specialty Start Date End Date Cortez Pinedo, NURSING STUDENT - RECEP [address] [facility] [place] [place] [address] PCP - General Internal Medicine 08/12/20 Nurse Midwife Relationship Specialty Start Date End Date Cortez Pinedo, NURSING STUDENT - RECEP [address] [facility] [place] [place] [address] PCP - General Internal Medicine 08/12/20 Nurse Midwife Relationship Specialty Start Date End Date Cortez Pinedo, NURSING STUDENT - RECEP [address] [facility] [place] [place] [address] PCP - General Internal Medicine 08/12/20 Nurse Midwife Relationship Specialty Start Date End Date Cortez Pinedo, NURSING STUDENT - RECEP [address] [place] [address] PCP - General Internal Medicine 08/12/20 Nurse Midwife Relationship Specialty Start Date End Date Cortez Pinedo, NURSING STUDENT.RECEP PCP - General 12/09/14 Nurse Midwife Relationship Specialty Start Date End Date Cortez Pinedo NURSING STUDENT.RECEP PCP - General 12/09/14 Nurse Midwife Relationship Specialty Start Date End Date KhrisCortez, NURSING STUDENT.RECEP PCP - General 12/09/14 Nurse Midwife Relationship Specialty Start Date End Date Cortez Pinedo, NURSING STUDENT.RECEP PCP - General 12/09/14 Nurse Midwife Relationship Specialty Start Date End Date Cortez Pinedo, NURSING STUDENT.RECEP PCP - General 12/09/14 Nurse Midwife Relationship Specialty Start Date End Date Cortez Pinedo, NURSING STUDENT.RECEP PCP - General 12/09/14 Nurse Midwife Relationship Specialty Start Date End Date Cortez Pinedo, NURSING STUDENT.RECEP PCP - General 12/09/14 Nurse Midwife Relationship Specialty Start Date End Date Cortez Pinedo, NURSING STUDENT.RECEP PCP - General 12/09/14 Nurse Midwife Relationship Specialty Start Date End Date Cortez Pinedo, NURSING STUDENT.RECEP PCP - General 12/09/14 Nurse Midwife Relationship Specialty Start Date End Date Cortez Pinedo, NURSING STUDENT.RECEP PCP - General 12/09/14 Nurse Midwife Relationship Specialty Start Date End Date Cortez Pinedo, NURSING STUDENT - RECEP [address] [place] [address] PCP - General Internal Medicine 08/12/20 Nurse Midwife Relationship Specialty Start Date End Date Cortez Pinedo, NURSING STUDENT - RECEP [address] [place] [address] PCP - General Internal Medicine 08/12/20 Nurse Midwife Relationship Specialty Start Date End Date Cortez Pinedo NURSING STUDENT - RECEP [address] [place] [address] PCP - General Internal Medicine 08/12/20 Nurse Midwife Relationship Specialty Start Date End Date Cortez Pinedo, NURSING STUDENT.RECEP PCP - General 12/09/14 Nurse Midwife Relationship Specialty Start Date End Date Cortez Pinedo NURSING STUDENT.RECEP PCP - General 12/09/14 Nurse Midwife Relationship Specialty Start Date End Date Cortez Pinedo NURSING STUDENT.RECEP PCP - General 12/09/14 Nurse Midwife Relationship Specialty Start Date End Date Cortez Pinedo NURSING STUDENT.RECEP PCP - General 12/09/14 Nurse Midwife Relationship Specialty Start Date End Date Cortez Pinedo NURSING STUDENT.RECEP PCP - General 12/09/14 Nurse Midwife Relationship Specialty Start Date End Date Cortez Pinedo NURSING STUDENT.RECEP PCP - General 12/09/14 Nurse Midwife Relationship Specialty Start Date End Date Cortez Pinedo NURSING STUDENT.RECEP PCP - General 12/09/14 <item> Privacy Markings [...] or prosecute any alcohol or drug abuse patient.[facility] the event this information is protected by the Federal Confidentiality of Alcohol and Drug Abuse Patient Records regulations: The Federal rules restrict any use of the information to criminally investigate or prosecute any alcohol or drug abuse patient.[facility] CenterIn the event this information is protected by the Federal Confidentiality of Alcohol and Drug Abuse Patient Records regulations: The Federal rules restrict any use of the information to criminally investigate or prosecute any alcohol or drug abuse patient.[facility] the event this information is protected by the Federal Confidentiality of Alcohol and Drug Abuse Patient Records regulations: The Federal rules restrict any use of the information to criminally investigate or prosecute any alcohol or drug abuse patient.[facility] Center[facility] the event this information is protected by the Federal Confidentiality of Alcohol and Drug Abuse Patient Records regulations: The Federal rules restrict any use of the information to criminally investigate or prosecute any alcohol or drug abuse patient.[facility] CenterIn the event this information is protected by the Federal Confidentiality of Alcohol and Drug Abuse Patient Records regulations: The Federal rules restrict any use of the information to criminally investigate or prosecute any alcohol or drug abuse patient.[facility] Center[facility] the event this information is protected by the Federal Confidentiality of Alcohol and Drug Abuse Patient Records regulations: The Federal rules restrict any use of the information to criminally investigate or prosecute any alcohol or drug abuse patient.[facility] CenterIn the event this information is protected by the Federal Confidentiality of Alcohol and Drug Abuse Patient Records regulations: The Federal rules restrict any use of the information to criminally investigate or prosecute any alcohol or drug abuse patient.[facility] Center[facility] the event this information is protected by the Federal Confidentiality of Alcohol and Drug Abuse Patient Records regulations: The Federal rules restrict any use of the information to criminally investigate or prosecute any alcohol or drug abuse patient.[facility] Center[facility] the event this information is protected by the Federal Confidentiality of Alcohol and Drug Abuse Patient Records regulations: The Federal rules restrict any use of the information to criminally investigate or prosecute any alcohol or drug abuse patient.[facility] CenterIn the event this information is protected by the Federal Confidentiality of Alcohol and Drug Abuse Patient Records regulations: The Federal rules restrict any use of the information to criminally investigate or prosecute any alcohol or drug abuse patient.[facility] CenterIn the event this information is protected by the Federal Confidentiality of Alcohol and Drug Abuse Patient Records regulations: The Federal rules restrict any use of the information to criminally investigate or prosecute any alcohol or drug abuse patient.[facility] CenterIn the event this information is protected by the Federal Confidentiality of Alcohol and Drug Abuse Patient Records regulations: The Federal rules restrict any use of the information to criminally investigate or prosecute any alcohol or drug abuse patient.[facility] CenterIn the event this information is protected by the Federal Confidentiality of Alcohol and Drug Abuse Patient Records regulations: The Federal rules restrict any use of the information to criminally investigate or prosecute any alcohol or drug abuse patient.[facility] CenterIn the event this information is protected by the Federal Confidentiality of Alcohol and Drug Abuse Patient Records regulations: The Federal rules restrict any use of the information to criminally investigate or prosecute any alcohol or drug abuse patient.[facility] CenterIn the event this information is protected by the Federal Confidentiality of Alcohol and Drug Abuse Patient Records regulations: The Federal rules restrict any use of the information to criminally investigate or prosecute any alcohol or drug abuse patient.[facility] CenterIn the event this information is protected by the Federal Confidentiality of Alcohol and Drug Abuse Patient Records regulations: The Federal rules restrict any use of the information to criminally investigate or prosecute any alcohol or drug abuse patient.[facility] CenterIn the event this information is protected by the Federal Confidentiality of Alcohol and Drug Abuse Patient Records regulations: The Federal rules restrict any use of the information to criminally investigate or prosecute any alcohol or drug abuse patient.[facility] CenterIn the event this information is protected by the Federal Confidentiality of Alcohol and Drug Abuse Patient Records regulations: The Federal rules restrict any use of the information to criminally investigate or prosecute any alcohol or drug abuse patient.[facility] CenterIn the event this information is protected by the Federal Confidentiality of Alcohol and Drug Abuse Patient Records regulations: The Federal rules restrict any use of the information to criminally investigate or prosecute any alcohol or drug abuse patient.[facility] CenterIn the event this information is protected by the Federal Confidentiality of Alcohol and Drug Abuse Patient Records regulations: The Federal rules restrict any use of the information to criminally investigate or prosecute any alcohol or drug abuse patient.[facility] Center[facility] the event this information is protected by the Federal Confidentiality of Alcohol and Drug Abuse Patient Records regulations: The Federal rules restrict any use of the information to criminally investigate or prosecute any alcohol or drug abuse patient.[facility] Center[facility] the event this information is protected by the Federal Confidentiality of Alcohol and Drug Abuse Patient Records regulations: The Federal rules restrict any use of the information to criminally investigate or prosecute any alcohol or drug abuse patient.[facility] FOR RECORDS PERTAINING TO PATIENTS WHO ARE [...] BE BASED ON THE PRIMARY CLINICAL RECORDS. [facility] [employer] [facility]. provides no warranty or guarantee of the accuracy or completeness of information in this document.
[2023-05-02] MEDS: Lactated Ringers 1,000 ML 15 ML IV (08:36)
[2023-05-02] MEDS: Cefazolin 2 GM in 0.9% Normal Saline (100mL Bag) 100 ML IV (09:57)
--- NOTE | 2023-05-02 10:44 | EX.PCM.DISCH ---
Discharge Instructions Diet Discharge Diet: No restrictions Activity Discharge Activity: Return to Normal Activity May resume sexual activity in: No Restrictions Dressing / Incision Call your doctor if you observe: Fever of 101 or Higher, Inability to urinate and Inability to have a bowel movement Follow Up Care Please Follow Up With: Kassidy Glover MD When: The office will call her to make arrangements for follow-up next week. Test Results: Test results from this visit will be discussed in further detail at your follow-up appointment, if applicable. Discharge Plan Admission Attending Provider: Kassidy Glover Primary Care Provider: Kristal Del Rio NP Discharge Orders/Prescriptions Prescriptions: New oxycodone-acetaminophen [Percocet] 5-325 mg tablet 1 tab PO Q8H PRN (Reason: pain) 3 Days Qty: 10 0RF cephalexin [cephalexin] 500 mg capsule 500 mg PO Q12 3 Days Qty: 6 0RF Rx Instructions: Please hold the nightly cephalexin 250 mg while taking this prescription ondansetron 4 mg tablet,disintegrating 4 mg PO Q8H PRN (Reason: nausea and vomiting) Qty: 10 0RF phenazopyridine [Pyridium] 200 mg tablet 200 mg PO TID PRN PRN (Reason: Bladder Spasms) 7 Days Qty: 30 3RF Continued bupropion HCl 150 mg tablet extended release 24 hr 150 mg PO QHS cephalexin 250 mg capsule 250 mg PO QHS Patient Comments: TAKE 1 CAPSULE BY MOUTH AT BEDTIME citalopram 40 mg tablet 40 mg PO QHS estradiol 0.01 % (0.1 mg/gram) cream 1 appful VAGINAL TUTHSA Patient Comments: insert 1 gram vaginally 3 times a week before bed fluticasone propionate 50 mcg/actuation spray,suspension 1 spray INTRANASAL Q12H PRN (Reason: allergy symptoms) hydroxyzine HCl 25 mg tablet 25 mg PO QHS lansoprazole 30 mg capsule,delayed release(DR/EC) 30 mg PO Q12H PRN (Reason: GERD) melatonin 10 mg capsule 10 mg PO QHS cholecalciferol (vitamin D3) [Vitamin D3] 25 mcg (1,000 unit) tablet 25 mcg PO DAILY ascorbic acid (vitamin C) [C Complex] 500 mg tablet extended release 500 mg PO DAILY d-mannose 500 mg capsule 500 mg PO TID Referrals / Follow Up: Quang,Kristal EXECUTIVE COMPENSATION ANALYST, EXECUTIVE COMPENSATION ANALYST-C [Primary Care Provider] - Disposition Disposition (needs filled in before D/C Order can be placed): Home, Self Care
--- NOTE | 2023-05-02 10:47 | PCM.OPRPT ---
Report of Operation Date of Procedure: 05/02/23 Pre-Operative Diagnosis: Right hydronephrosis, flank pain Post-Operative Diagnosis: Same Surgery/Procedure Performed:: Cystoscopy, right retrograde pyelogram, right ureteroscopy, right ureteral stent insertion Description of Surgical Findings:: No obstruction, right hydronephrosis Surgeon: Kassidy Glover Type of Anesthesia: General Description of Procedure: The patient is a 53-year-old female with a right flank pain that has been evaluated with imaging revealing hydronephrosis, and a drain out study revealing normal T1/2 following Lasix. She is continuing to have symptoms and the decision was made to proceed with further evaluation under anesthesia. Informed consent was obtained. The patient was taken to the operating room and placed on the operating room table. Anesthesia monitored the head, neck, airway, IV access and vital signs throughout the case. Once anesthesia was appropriately administered, she was placed into dorsolithotomy position and was prepped and draped in usual sterile fashion. The cystoscope was inserted through the urethra under direct visualization into the urinary bladder. The bladder mucosa was visualized in its entirety finding no evidence of mass, erythema, ulceration or foreign body. Contrast was injected through the cystoscope aiming at the right ureteral orifice which did not open and no reflux was identified on fluoroscopic evaluation, a negative PIC cystogram. Using an 8 [place] cone-tip catheter, retrograde contrast was injected under fluoroscopic visualization. This revealed no evidence of obstruction of the ureter, with significant hydronephrosis. At this time 2 separate 0.035 Glidewire's were passed through the ureteral orifice into the renal pelvis. A flexible ureteroscope was inserted over the Glidewire and easily advanced all the way into the renal pelvis without obstruction. The wire was then removed for more clear visualization. The entire renal pelvis and calyces were directly visualized finding no evidence of cancer or stone. The entire length of the ureter was then visualized finding no abnormalities. Using the indwelling Glidewire, a 4.5 [place] by 24 cm JJ stent was placed with good positioning in the renal pelvis as well as the urinary bladder. At this time the bladder was emptied, the cystoscope was removed and the case was terminated. She was awakened and taken to the recovery room in good condition. Grafts/Implants Used: 4.5 [place] by 24 cm JJ stent Complications None Admit VTE Documentation VTE Present on Admission: Yes VTE Mechan Device Prophylaxis: SCD's VTE Pharm Prophylaxis ordered?: No Reason prophylaxis not ordered:: Treatment Not Indicated
== END 2023-05-02 12:25 | disposition home or self-care (01) ==
LOC: SDC 08:01 → AC 08:02
PROVIDERS: PCP Nurse Practitioner Adult Health; Referring Provider Nurse Practitioner Adult Health; Visit Provider Urology
PROC: 0TJ98ZZ Inspection of Ureter, Via Natural or Artificial Opening Endoscopic (ICD-10-PCS; CPT 52352; principal; 2023-05-02 09:15)
DX: R10.9 Unspecified abdominal pain (principal); N13.30 Unspecified hydronephrosis; F41.9 Anxiety disorder, unspecified; F32.A Depression, unspecified; K21.9 Gastro-esophageal reflux disease without esophagitis; Z90.49 Acquired absence of other specified parts of digestive tract; Z90.710 Acquired absence of both cervix and uterus; Z87.891 Personal history of nicotine dependence; Z87.440 Personal history of urinary (tract) infections; Z86.73 Personal history of transient ischemic attack (TIA), and cerebral infarction without residual deficits
CPT/HCPCS: 52332; 00910; 76000; J7120; J2405